=== PATIENT | male | born 1950 | race Caucasian/White ===

== ENCOUNTER → 2020-02-28 10:11 | Outpatient (BNVA) | payer MEDICARE, SELFPAY | PROVIDERS: PCP Internal Medicine; Referring Provider Internal Medicine; Visit Provider Orthopaedic Surgery | DX: Z98.890 Other specified postprocedural states (principal); S46.011D Strain of muscle(s) and tendon(s) of the rotator cuff of right shoulder, subsequent encounter; X58.XXXD Exposure to other specified factors, subsequent encounter; E11.9 Type 2 diabetes mellitus without complications; E78.00 Pure hypercholesterolemia, unspecified; I10 Essential (primary) hypertension | CPT/HCPCS: 99212 ==

== ENCOUNTER 2020-03-19 08:58 | Outpatient (REF) | payer MEDICARE, SELFPAY ==
[2020-03-19 09:33] LABS: MANUAL DIFF FLAG NO
[2020-03-19 09:34] LABS: Basophils Absolute Auto 0.1 X10*3/uL (0.0-0.2); Basophils Percent Auto 0.8 % (0-2); Eosinophils Absolute Auto 0.6 X10*3/uL (0.0-0.4); Hematocrit 41.6 % (42-52); Hemoglobin 13.8 g/dl (14.0-18.0); Imm Gran Abs Auto 0.01 X10*3/uL (0.00-0.03); Imm Gran Pct Auto 0.2 % (0.0-0.4); Lymphocytes Absolute Auto 1.8 X10*3/uL (1.2-4.9); Lymphocytes Percent Auto 30.6 % (20-40); Mean Corpuscular HGB Conc 33.2 g/dl (31.0-36.0); Mean Corpuscular Hemoglobin 28.9 pg (27.0-33.0); Mean Platelet Volume 9.4 fL (9.4-12.4); Monocytes Absolute Auto 0.6 X10*3/uL (0.1-1.2); Neutrophils Absolute Auto 2.9 X10*3/uL (2.0-8.3); Neutrophils Percent Auto 48.4 % (45-73); Platelet Count 236 X10*3/uL (160-400); Red Blood Count 4.78 X10*6/uL (4.60-5.80); Red Cell Distribution Width 12.9 % (11.0-16.0); White Blood Count 5.9 X10*3/uL (4.8-10.8)
[2020-03-19 09:39] LABS: Glucose Urine UA NEG (NEG); Leukocyte Esterase Urine NEG (NEG); Nitrite Urine NEG (NEG); Urine Blood NEG (NEG); Urine Ketones NEG (NEG); Urine Protein NEG (NEG-TRACE)
[2020-03-19 09:40] LABS: Appearance Urine CLEAR; Color Urine YELLOW
[2020-03-19 09:46] LABS: RBC Urine 0 /HPF (0); Squamous Epithelial Cell Urine TRACE /LPF; WBC Urine 0-2 /HPF (0-4)
[2020-03-19 09:59] LABS: Alanine Aminotransferase 32 U/L (0-40); Albumin Level 4.2 g/dL (3.5-5.0); Alkaline Phosphatase 62 U/L (39-117); Anion Gap 10 (12-20); Aspartate Amino Transferase 31 U/L (5-37); Bilirubin Total 0.5 mg/dL (0.0-1.0); Blood Urea Nitrogen 10 mg/dL (9-16); Calcium 9.4 mg/dL (8.4-10.2); Carbon Dioxide 29 mmol/L (22-29); Chloride 103 mmol/L (96-108); Cholesterol 129 mg/dL; Estimated Glomerular Filt Rate 57; Glucose Fasting 171 mg/dL (60-99); HDL Cholesterol 52 mg/dL; LDL Cholesterol Calculated 63 mg/dl; Potassium 3.9 mmol/l (3.3-5.1); Sodium 138 mmol/L (135-145); Total Protein 6.6 g/dL (6.5-8.0); Triglycerides 73 mg/dL
[2020-03-19 10:19] LABS: TSH reflex Free T4 1.28 mIU/mL (0.32-4.0)
[2020-03-19 11:08] LABS: Creatinine Urine 77.53 mg/dL; Microalbum/Creatinine Ratio Ur 140.5 ug/mg cr
== END 2020-03-19 08:59 | disposition home or self-care (01) ==
LOC: HO.LAB 08:58
PROVIDERS: PCP Internal Medicine; Visit Provider Internal Medicine
DX: E11.29 Type 2 diabetes mellitus with other diabetic kidney complication (principal); R80.9 Proteinuria, unspecified; E78.5 Hyperlipidemia, unspecified; I10 Essential (primary) hypertension; E66.9 Obesity, unspecified
CPT/HCPCS: 36415; 80053; 80061; 81001; 82043; 82306; 84443; 85025

== ENCOUNTER → 2020-04-24 09:58 | Outpatient (BNVA) | payer MEDICARE, SELFPAY | PROVIDERS: Visit Provider Orthopaedic Surgery | DX: G89.29 Other chronic pain (principal); Z98.890 Other specified postprocedural states | CPT/HCPCS: 99212 ==

== ENCOUNTER 2020-06-22 08:09 | Outpatient (REF) | payer MEDICARE, SELFPAY ==
[2020-06-22 08:49] LABS: MANUAL DIFF FLAG NO
[2020-06-22 09:00] LABS: Basophils Absolute Auto 0.1 X10*3/uL (0.0-0.2); Basophils Percent Auto 1.1 % (0-2); Eosinophils Absolute Auto 1.2 X10*3/uL (0.0-0.4); Eosinophils Percent Auto 16.3 % (0-4); Hematocrit 40.4 % (42-52); Hemoglobin 13.9 g/dl (14.0-18.0); Imm Gran Abs Auto 0.03 X10*3/uL (0.00-0.03); Imm Gran Pct Auto 0.4 % (0.0-0.4); Lymphocytes Absolute Auto 2.2 X10*3/uL (1.2-4.9); Lymphocytes Percent Auto 29.9 % (20-40); Mean Corpuscular HGB Conc 34.4 g/dl (31.0-36.0); Mean Corpuscular Hemoglobin 29.8 pg (27.0-33.0); Mean Corpuscular Volume 86.7 fL (80-98); Mean Platelet Volume 9.9 fL (9.4-12.4); Monocytes Absolute Auto 0.6 X10*3/uL (0.1-1.2); Monocytes Percent Auto 8.4 % (2-11); Neutrophils Absolute Auto 3.3 X10*3/uL (2.0-8.3); Neutrophils Percent Auto 43.9 % (45-73); Platelet Count 192 X10*3/uL (160-400); Red Blood Count 4.66 X10*6/uL (4.60-5.80); Red Cell Distribution Width 12.5 % (11.0-16.0); White Blood Count 7.5 X10*3/uL (4.8-10.8)
[2020-06-22 09:03] LABS: Glucose Urine UA NEG (NEG); Leukocyte Esterase Urine NEG (NEG); Nitrite Urine NEG (NEG); Urine Blood TRACE (NEG); Urine Ketones NEG (NEG); Urine Protein 1+ MG/DL (NEG-TRACE)
[2020-06-22 09:04] LABS: Appearance Urine CLEAR; Color Urine YELLOW
[2020-06-22 09:18] LABS: Mucus Urine 1+ /LPF; RBC Urine 0-2 /HPF (0); Squamous Epithelial Cell Urine 1+ /LPF
[2020-06-22 09:38] LABS: Alanine Aminotransferase 22 U/L (0-40); Albumin Level 4.3 g/dL (3.5-5.0); Alkaline Phosphatase 68 U/L (39-117); Anion Gap 14 (12-20); Aspartate Amino Transferase 20 U/L (5-37); Bilirubin Total 0.7 mg/dL (0.0-1.0); Blood Urea Nitrogen 18 mg/dL (9-16); Calcium 9.2 mg/dL (8.4-10.2); Carbon Dioxide 27 mmol/L (22-29); Chloride 103 mmol/L (96-108); Cholesterol 157 mg/dL; Estimated Glomerular Filt Rate 57; Glucose Fasting 173 mg/dL (60-99); HDL Cholesterol 58 mg/dL; LDL Cholesterol Calculated 80 mg/dl; Potassium 3.8 mmol/L (3.3-5.1); Sodium 140 mmol/L (135-145); Total Protein 6.9 g/dL (6.5-8.0); Triglycerides 95 mg/dL
[2020-06-22 09:46] LABS: Creatinine Urine 126.41 mg/dL; Microalbum/Creatinine Ratio Ur 231.7 ug/mg cr
[2020-06-22 10:02] LABS: TSH reflex Free T4 1.25 uIU/mL (0.32-4.0); Vitamin D 25-OH Total 32.7 ng/mL (>30)
[2020-06-23 07:54] LABS: Estimated Average Glucose 209 mg/dL; Hemoglobin A1c % 8.9 %
== END 2020-06-22 08:10 | disposition home or self-care (01) ==
LOC: HO.LAB 08:09
PROVIDERS: PCP Internal Medicine; Visit Provider Internal Medicine
DX: E11.29 Type 2 diabetes mellitus with other diabetic kidney complication (principal); G56.42 Causalgia of left upper limb; I10 Essential (primary) hypertension; E78.00 Pure hypercholesterolemia, unspecified; R80.9 Proteinuria, unspecified; E66.9 Obesity, unspecified; E55.9 Vitamin D deficiency, unspecified
CPT/HCPCS: 36415; 80053; 80061; 81001; 81003; 82043; 82306; 83036; 84443; 85025

== ENCOUNTER → 2020-07-23 12:46 | Outpatient (BNVA) | payer MEDICARE, SELFPAY | PROVIDERS: Visit Provider Orthopaedic Surgery | DX: Z98.890 Other specified postprocedural states (principal) | CPT/HCPCS: 99212 ==

== ENCOUNTER 2020-09-22 07:21 | Outpatient (REF) | payer MEDICARE, SELFPAY ==
[2020-09-22 08:25] LABS: Glucose Urine UA NEG (NEG); Leukocyte Esterase Urine NEG (NEG); Nitrite Urine NEG (NEG); Specific Gravity - Urine 1.015 (1.005-1.025); Urine Blood NEG (NEG); Urine Ketones NEG (NEG); Urine Protein TRACE MG/DL (NEG-TRACE)
[2020-09-22 08:28] LABS: Appearance Urine CLEAR; Color Urine YELLOW
[2020-09-22 09:48] LABS: Estimated Average Glucose 169 mg/dL; Hemoglobin A1c % 7.5 %
== END 2020-09-22 07:22 | disposition home or self-care (01) ==
LOC: HO.LAB 07:21
PROVIDERS: PCP Internal Medicine; Visit Provider Internal Medicine
DX: E11.29 Type 2 diabetes mellitus with other diabetic kidney complication (principal); I10 Essential (primary) hypertension; R80.9 Proteinuria, unspecified
CPT/HCPCS: 36415; 81003; 83036

== ENCOUNTER 2021-01-21 09:25 | Outpatient (REF) | payer MEDICARE, SELFPAY ==
[2021-01-21 10:29] LABS: MANUAL DIFF FLAG NO
[2021-01-21 10:39] LABS: Basophils Absolute Auto 0.1 X10*3/uL (0.0-0.2); Basophils Percent Auto 1.1 % (0-2); Eosinophils Absolute Auto 1.2 X10*3/uL (0.0-0.4); Eosinophils Percent Auto 15.6 % (0-4); Hematocrit 42.9 % (42-52); Hemoglobin 14.3 g/dl (14.0-18.0); Imm Gran Abs Auto 0.02 X10*3/uL (0.00-0.03); Imm Gran Pct Auto 0.3 % (0.0-0.4); Lymphocytes Absolute Auto 1.7 X10*3/uL (1.2-4.9); Lymphocytes Percent Auto 21.9 % (20-40); Mean Corpuscular HGB Conc 33.3 g/dl (31.0-36.0); Mean Corpuscular Hemoglobin 29.6 pg (27.0-33.0); Mean Corpuscular Volume 88.8 fL (80-98); Mean Platelet Volume 9.9 fL (9.4-12.4); Monocytes Absolute Auto 0.7 X10*3/uL (0.1-1.2); Neutrophils Absolute Auto 3.9 X10*3/uL (2.0-8.3); Neutrophils Percent Auto 52.1 % (45-73); Platelet Count 207 X10*3/uL (160-400); Red Blood Count 4.83 X10*6/uL (4.60-5.80); Red Cell Distribution Width 13.2 % (11.0-16.0); White Blood Count 7.5 X10*3/uL (4.8-10.8)
[2021-01-21 11:00] LABS: Alanine Aminotransferase 17 U/L (0-40); Albumin Level 4.4 g/dL (3.5-5.0); Alkaline Phosphatase 69 U/L (39-117); Anion Gap 9 (12-20); Aspartate Amino Transferase 21 U/L (5-37); Blood Urea Nitrogen 11 mg/dL (9-16); Calcium 9.4 mg/dL (8.4-10.2); Carbon Dioxide 27 mmol/L (22-29); Chloride 107 mmol/L (96-108); Cholesterol 137 mg/dL; Estimated Glomerular Filt Rate > 60; Glucose Fasting 103 mg/dL (60-99); HDL Cholesterol 68 mg/dL; LDL Cholesterol Calculated 58 mg/dl; Potassium 3.8 mmol/L (3.3-5.1); Sodium 139 mmol/L (135-145); Total Protein 7.1 g/dL (6.5-8.0); Triglycerides 55 mg/dL
[2021-01-21 11:04] LABS: Appearance Urine CLEAR; Color Urine YELLOW; Glucose Urine UA NEG (NEG); Leukocyte Esterase Urine NEG (NEG); Nitrite Urine NEG (NEG); Specific Gravity - Urine 1.025 (1.005-1.025); UACC Culture Trigger NO; Urine Blood NEG (NEG); Urine Ketones NEG (NEG); Urine Protein 2+ MG/DL (NEG-TRACE)
[2021-01-21 11:16] LABS: Estimated Average Glucose 157 mg/dL; Hemoglobin A1c % 7.1 %
[2021-01-21 11:19] LABS: TSH reflex Free T4 0.66 uIU/mL (0.32-4.0); Vitamin D 25-OH Total 24.7 ng/mL (>30); WBC Urine 0-2 /HPF (0-4)
[2021-01-21 11:20] LABS: Mucus Urine TRACE /LPF; RBC Urine 0 /HPF (0); Squamous Epithelial Cell Urine TRACE /LPF
[2021-01-21 11:38] LABS: Creatinine Urine 179.25 mg/dL
[2021-01-21 11:53] LABS: Microalbum/Creatinine Ratio Ur 342.5 ug/mg cr
[2021-01-21 12:17] LABS: Erythrocyte Sedimentation Rate 10 MM/HR (0-15)
== END 2021-01-21 09:26 | disposition home or self-care (01) ==
LOC: HO.LAB 09:25
PROVIDERS: PCP Internal Medicine; Visit Provider Internal Medicine
DX: G56.42 Causalgia of left upper limb (principal); E66.9 Obesity, unspecified; E78.00 Pure hypercholesterolemia, unspecified; E55.9 Vitamin D deficiency, unspecified; I10 Essential (primary) hypertension; E11.29 Type 2 diabetes mellitus with other diabetic kidney complication; R80.9 Proteinuria, unspecified
CPT/HCPCS: 36415; 80053; 80061; 81001; 81003; 82043; 82306; 83036; 84443; 85025; 85652

== ENCOUNTER 2021-05-05 07:28 | Outpatient (REF) | payer MEDICARE, SELFPAY ==
[2021-05-05 08:04] LABS: Appearance Urine CLEAR; Color Urine YELLOW; Glucose Urine UA NEG (NEG); Leukocyte Esterase Urine NEG (NEG); Nitrite Urine NEG (NEG); Urine Blood NEG (NEG); Urine Ketones NEG (NEG); Urine Protein TRACE MG/DL (NEG-TRACE)
[2021-05-05 08:47] LABS: Prostate Specific Antigen 0.64 ng/mL (<0.05-4.0)
== END 2021-05-05 07:29 | disposition home or self-care (01) ==
LOC: HO.LAB 07:28
PROVIDERS: Nurse Practitioner Family; PCP Internal Medicine; Visit Provider Internal Medicine
DX: I10 Essential (primary) hypertension (principal); R80.9 Proteinuria, unspecified; E11.29 Type 2 diabetes mellitus with other diabetic kidney complication; Z12.5 Encounter for screening for malignant neoplasm of prostate
CPT/HCPCS: 36415; 81003; 84153

== ENCOUNTER 2021-08-02 10:45 | Outpatient (REF) | payer OTHER, SELFPAY ==
[2021-08-02 10:58] LABS: MANUAL DIFF FLAG NO
[2021-08-02 11:20] LABS: Basophils Absolute Auto 0.1 X10*3/uL (0.0-0.2); Basophils Percent Auto 1.1 % (0-2); Eosinophils Absolute Auto 1.2 X10*3/uL (0.0-0.4); Eosinophils Percent Auto 17.8 % (0-4); Hematocrit 45.5 % (42.0-52.0); Hemoglobin 14.9 g/dl (14.0-18.0); Imm Gran Abs Auto 0.01 X10*3/uL (0.00-0.03); Imm Gran Pct Auto 0.2 % (0.0-0.4); Lymphocytes Absolute Auto 2.1 X10*3/uL (1.2-4.9); Lymphocytes Percent Auto 31.5 % (20-40); Mean Corpuscular HGB Conc 32.7 g/dl (31.0-36.0); Mean Corpuscular Hemoglobin 29.2 pg (27.0-33.0); Mean Platelet Volume 9.4 fL (9.4-12.4); Monocytes Absolute Auto 0.7 X10*3/uL (0.1-1.2); Monocytes Percent Auto 10.3 % (2-11); Neutrophils Absolute Auto 2.5 x10*3/uL (2.0-8.3); Neutrophils Percent Auto 39.1 % (45-73); Platelet Count 193 X10*3/uL (160-400); Red Blood Count 5.11 X10*6/uL (4.60-5.80); Red Cell Distribution Width 12.2 % (11.0-16.0); White Blood Count 6.5 X10*3/uL (4.8-10.8)
[2021-08-02 11:56] LABS: Alanine Aminotransferase 26 U/L (0-40); Albumin Level 4.4 g/dL (3.5-5.0); Alkaline Phosphatase 75 U/L (39-117); Anion Gap 12 (12-20); Aspartate Amino Transferase 23 U/L (5-37); Bilirubin Total 0.6 mg/dL (0.0-1.0); Blood Urea Nitrogen 10 mg/dL (9-16); Calcium 10.3 mg/dL (8.4-10.2); Carbon Dioxide 31 mmol/L (22-29); Chloride 101 mmol/L (96-108); Estimated Glomerular Filt Rate 51; Glucose Random 310 mg/dL (60-115); Potassium 5.4 mmol/L (3.3-5.1); Sodium 139 mmol/L (135-145); Total Protein 7.3 g/dL (6.5-8.0)
[2021-08-02 12:22] LABS: TSH reflex Free T4 1.12 uIU/mL (0.32-4.0)
== END 2021-08-02 10:46 | disposition home or self-care (01) ==
LOC: HO.LAB 10:45
PROVIDERS: PCP Internal Medicine; Visit Provider Nurse Practitioner Acute Care
DX: R42 Dizziness and giddiness (principal)
CPT/HCPCS: 36415; 80053; 84443; 85025

== ENCOUNTER 2022-01-12 11:06 | Outpatient (REF) | payer OTHER, SELFPAY ==
[2022-01-12 11:39] LABS: MANUAL DIFF FLAG NO
[2022-01-12 12:00] LABS: Basophils Absolute Auto 0.1 X10*3/uL (0.0-0.2); Basophils Percent Auto 1.1 % (0-2); Eosinophils Absolute Auto 1.1 X10*3/uL (0.0-0.4); Hematocrit 43.9 % (42.0-52.0); Hemoglobin 14.8 g/dl (14.0-18.0); Imm Gran Abs Auto 0.01 X10*3/uL (0.00-0.03); Imm Gran Pct Auto 0.2 % (0.0-0.4); Lymphocytes Absolute Auto 2.1 X10*3/uL (1.2-4.9); Lymphocytes Percent Auto 33.9 % (20-40); Mean Corpuscular HGB Conc 33.7 g/dl (31.0-36.0); Mean Corpuscular Hemoglobin 29.6 pg (27.0-33.0); Mean Corpuscular Volume 87.8 fL (80.0-98.0); Mean Platelet Volume 9.3 fL (9.4-12.4); Monocytes Absolute Auto 0.6 X10*3/uL (0.1-1.2); Monocytes Percent Auto 9.6 % (2-11); Neutrophils Absolute Auto 2.4 x10*3/uL (2.0-8.3); Neutrophils Percent Auto 38.2 % (45-73); Platelet Count 185 X10*3/uL (160-400); White Blood Count 6.2 X10*3/uL (4.8-10.8)
[2022-01-12 12:09] LABS: Estimated Average Glucose 192 mg/dL; Hemoglobin A1c % 8.3 %
[2022-01-12 12:14] LABS: Appearance Urine Clear; Color Urine Yellow; Glucose Urine UA 100 mg/dL (Negative); Leukocyte Esterase Urine Negative (Negative); Nitrite Urine Negative (Negative); Urine Blood Negative (Negative); Urine Ketones Trace mg/dL (Negative); Urine Protein 100 (2+) mg/dL (Neg-Trace)
[2022-01-12 12:17] LABS: Bacteria Urine None Seen (None Seen); Hyaline Casts Urine 0-2 /LPF (0-2); RBC Urine 0-2 /HPF (0-2); Squamous Epithelial Cell Urine 0-2 /HPF (0-2); WBC Urine 0-5 /HPF (0-5)
[2022-01-12 12:35] LABS: Alanine Aminotransferase 22 U/L (0-40); Albumin Level 4.4 g/dL (3.5-5.0); Alkaline Phosphatase 68 U/L (39-117); Anion Gap 15 (12-20); Aspartate Amino Transferase 24 U/L (5-37); Bilirubin Total 0.7 mg/dL (0.0-1.0); Blood Urea Nitrogen 11 mg/dL (9-16); Calcium 9.4 mg/dL (8.4-10.2); Carbon Dioxide 25 mmol/L (22-29); Chloride 104 mmol/L (96-108); Cholesterol 156 mg/dL; Estimated Glomerular Filt Rate > 60; Glucose Fasting 206 mg/dL (60-99); HDL Cholesterol 55 mg/dL; LDL Cholesterol Calculated 77 mg/dl; Potassium 4.5 mmol/L (3.3-5.1); Sodium 139 mmol/L (135-145); Total Protein 7.3 g/dL (6.5-8.0); Triglycerides 121 mg/dL
[2022-01-12 12:57] LABS: TSH reflex Free T4 1.15 uIU/mL (0.32-4.0); Vitamin D 25-OH Total 25.6 ng/mL (>30)
[2022-01-12 13:15] LABS: Creatinine Urine 172.75 mg/dL
== END 2022-01-12 11:07 | disposition home or self-care (01) ==
LOC: HO.LAB 11:06
PROVIDERS: PCP Internal Medicine; Visit Provider Internal Medicine
DX: E11.9 Type 2 diabetes mellitus without complications (principal); E78.00 Pure hypercholesterolemia, unspecified; I10 Essential (primary) hypertension; E55.9 Vitamin D deficiency, unspecified
CPT/HCPCS: 36415; 80053; 80061; 81001; 82043; 82306; 83036; 84443; 85025

== ENCOUNTER 2022-04-27 07:56 | Outpatient (REF) | payer OTHER, SELFPAY ==
[2022-04-27 08:13] LABS: MANUAL DIFF FLAG NO
[2022-04-27 08:29] LABS: Basophils Absolute Auto 0.1 X10*3/uL (0.0-0.2); Basophils Percent Auto 1.2 % (0-2); Eosinophils Absolute Auto 0.9 X10*3/uL (0.0-0.4); Eosinophils Percent Auto 12.6 % (0-4); Hematocrit 47.2 % (42.0-52.0); Hemoglobin 15.8 g/dl (14.0-18.0); Imm Gran Abs Auto 0.02 X10*3/uL (0.00-0.03); Imm Gran Pct Auto 0.3 % (0.0-0.4); Lymphocytes Absolute Auto 1.9 X10*3/uL (1.2-4.9); Lymphocytes Percent Auto 28.4 % (20-40); Mean Corpuscular HGB Conc 33.5 g/dl (31.0-36.0); Mean Corpuscular Hemoglobin 28.8 pg (27.0-33.0); Mean Corpuscular Volume 86.1 fL (80.0-98.0); Mean Platelet Volume 9.9 fL (9.4-12.4); Monocytes Absolute Auto 0.6 X10*3/uL (0.1-1.2); Monocytes Percent Auto 8.4 % (2-11); Neutrophils Absolute Auto 3.4 x10*3/uL (2.0-8.3); Neutrophils Percent Auto 49.1 % (45-73); Platelet Count 217 X10*3/uL (160-400); Red Blood Count 5.48 X10*6/uL (4.60-5.80); Red Cell Distribution Width 12.1 % (11.0-16.0); White Blood Count 6.8 X10*3/uL (4.8-10.8)
[2022-04-27 08:33] LABS: Estimated Average Glucose 252 mg/dL; Hemoglobin A1c % 10.4 %
[2022-04-27 09:01] LABS: Appearance Urine Clear; Color Urine Yellow; Glucose Urine UA 500 mg/dL (Negative); Leukocyte Esterase Urine Negative (Negative); Nitrite Urine Negative (Negative); Specific Gravity - Urine 1.025 (1.005-1.025); UMIC TRIGGER UACC YES; Urine Blood Negative (Negative); Urine Ketones Trace mg/dL (Negative); Urine Protein 300 (3+) mg/dL (Neg-Trace)
[2022-04-27 09:03] LABS: Bacteria Urine None Seen (None Seen); RBC Urine 0-2 /HPF (0-2); Squamous Epithelial Cell Urine 0-2 /HPF (0-2); WBC Urine 0-5 /HPF (0-5)
[2022-04-27 09:30] LABS: Alanine Aminotransferase 22 U/L (0-40); Albumin Level 4.4 g/dL (3.5-5.0); Alkaline Phosphatase 85 U/L (39-117); Anion Gap 12 (12-20); Aspartate Amino Transferase 21 U/L (5-37); Bilirubin Total 0.8 mg/dL (0.0-1.0); Blood Urea Nitrogen 13 mg/dL (9-16); Calcium 9.7 mg/dL (8.4-10.2); Carbon Dioxide 25 mmol/L (22-29); Chloride 103 mmol/L (96-108); Cholesterol 179 mg/dL; Estimated Glomerular Filt Rate 59; Glucose Fasting 287 mg/dL (60-99); HDL Cholesterol 65 mg/dL; LDL Cholesterol Calculated 95 mg/dl; Potassium 4.1 mmol/L (3.3-5.1); Sodium 136 mmol/L (135-145); TSH reflex Free T4 1.43 uIU/mL (0.32-4.0); Triglycerides 98 mg/dL; Vitamin D 25-OH Total 25.6 ng/mL (>30)
[2022-04-27 09:49] LABS: Creatinine Urine 251.28 mg/dL
[2022-04-27 10:01] LABS: Microalbum/Creatinine Ratio Ur 791.1 ug/mg cr
== END 2022-04-27 07:57 | disposition home or self-care (01) ==
LOC: HO.LAB 07:56
PROVIDERS: PCP Internal Medicine; Visit Provider Internal Medicine
DX: E78.00 Pure hypercholesterolemia, unspecified (principal); E11.9 Type 2 diabetes mellitus without complications; E55.9 Vitamin D deficiency, unspecified; I10 Essential (primary) hypertension
CPT/HCPCS: 36415; 80053; 80061; 81001; 81003; 82043; 82306; 83036; 84443; 85025

== ENCOUNTER 2022-08-13 09:53 | Emergency (ER) | payer OTHER, SELFPAY ==
--- NOTE | ~2022-08-13 | CT_ITS ---
EXAMINATION: CT ABDOMEN AND PELVIS WITHOUT CONTRAST CLINICAL INFORMATION: 72-year-old male with history of right back pain and melena. COMPARISON: 12/03/2009 TECHNIQUE: Multidetector volumetric imaging was performed from the superior aspect of the liver through the pubic symphysis. Sagittal and coronal reformatted images were obtained on the technologist's workstation. This CT examination was performed using dose optimization techniques as appropriate, variously including the following: *Automated exposure control *Adjustment of mA and/or kV according to patient size (this includes techniques or standardized protocols for targeted exams where dose is matched to indication/reason for exam; i.e. extremities or head) *Use of iterative reconstruction technique DLP: 542 mGy-cm FINDINGS: LOCALIZER IMAGES: Large body habitus. Normal bowel gas pattern. LUNG BASES: No acute abnormality. No pulmonary consolidation or pleural effusion. 0.5 cm pleural-based nodule of the lateral left lower lobe is stable compared to 12/03/2009 -- a benign finding. No follow-up recommended. There is atherosclerotic calcification of coronary arteries. LIVER: The liver has normal size, shape, and attenuation. No evidence of liver mass. GALLBLADDER AND BILIARY TREE: Gallbladder is without radiopaque stones. Although there is mild haziness of pericholecystic fat, this is similar in appearance compared to 12/03/2009. No dilated bile ducts. PANCREAS: No acute findings within the atrophied pancreas. Small scattered calcific lesions of the pancreas could be a manifestation of chronic pancreatitis. No edema, pancreatic ductal dilatation or mass. SPLEEN: Normal. ADRENAL GLANDS: Normal. KIDNEYS AND URETERS: Kidneys are normal in size. Nonspecific bilateral perinephric edema. 1.6 cm simple cyst of the right kidney. No renal imaging follow-up recommended. There are three calyceal stones of the right kidney, largest 0.5 cm. No left renal stones. The ureters are unremarkable. No hydroureteronephrosis. BLADDER: No bladder wall thickening or bladder stone. The right bladder wall is compressed by the reservoir for the penile prosthesis. BOWEL AND PERITONEUM: No dilated bowel loops. Multiple diverticula of the right and left colon. The appendix is normal. There is subtle haziness adjacent to a diverticulum of the medial wall of the descending colon (coronal reformatted images 49-53 of 100). However, there is no overt wall thickening of the bowel and the finding is too subtle for any confident diagnosis of diverticulitis. Note that patient had diverticulitis of the descending colon on 12/03/2009. No abdominal free fluid or free air. There is chronic minimal haziness of central mesenteric fat, similar compared to 12/03/2009, suggestive of minimal mesenteric panniculitis. ABDOMINAL WALL: Small fat-containing umbilical hernia is present. Also, there is chronic mild herniation of fat into each proximal inguinal canal. These findings are unchanged compared to 12/03/2009. VASCULATURE: Atherosclerosis of the abdominal aorta (and branch vessels) without aortic aneurysm. LYMPH NODES: No pathologic sized lymph nodes in the abdomen or pelvis. No inguinal lymphadenopathy. PELVIC VISCERA: Prostate gland is unremarkable. MUSCULOSKELETAL: L4-L5 degenerative disc disease (loss of disc height, vacuum disc phenomenon, endplate sclerosis and osteophytosis). Disc bulge and posterior vertebral osteophytes cause mild central canal stenosis and at least moderate bilateral neural foraminal stenosis at L4-L5. The bulging disc at L5-S1 appears to cause mild spinal canal stenosis. No suspicious bone lesions. Pelvic bones and proximal femurs are intact. CT/CT abdomen pelvis wo IV con IMPRESSION: * There are a few small stones of the right kidney without ureteral stones. No hydroureteronephrosis. No acute abnormalities along the urinary tracts. * Although there is hazy appearance of some of the pericholecystic fat, this is similar compared to 12/03/2009 and therefore of doubtful significance. If the patient develops any right upper quadrant pain, then follow-up right upper quadrant ultrasound may be performed. * Diverticulosis of the colon. The finding of subtle haziness adjacent to a diverticulum of the medial wall of the descending colon requires clinical correlation. If the patient has any left-sided pain, then minimal diverticulitis would be suspected. The patient had diverticulitis of the descending colon on the remote prior abdomen CT from 12/03/2009. * Findings in the lumbar spine include degenerative disc disease, mild canal stenosis and at least moderate bilateral neural foraminal stenosis at L4-L5. No acute fracture or subluxation within the degenerated spine.
[2022-08-13 10:01] VITALS: BP 151/68; PULSE 70; RESP 16; TEMP 36; O2SAT 96; BMI 31.1
--- NOTE | 2022-08-13 10:20 | ECG_ITS ---
Test Reason : BACK PAIN Blood Pressure : / mmHG Vent. Rate : 062 BPM Atrial Rate : 062 BPM P-R Int : 188 ms QRS Dur : 090 ms QT Int : 384 ms P-R-T Axes : 029 009 025 degrees QTc Int : 389 ms Normal sinus rhythm Inferior infarct , age undetermined Possible Anterior infarct , age undetermined Abnormal ECG When compared with ECG of 01-JAN-2020 13:58, No significant change was found Referred By: Regis Le Electronically Signed By:Jose L Chandler
--- NOTE | 2022-08-13 10:35 | ED_ITS ---
HPI - Back Pain/Injury General Chief Complaint: Back Pain/Injury Stated Complaint: lower back pain Time Seen by Provider: 08/13/22 10:09 Source: patient Mode of arrival: ambulatory Limitations: no limitations History of Present Illness HPI Narrative: 72-year-old male came in for evaluation of low back pain. Patient is complaining of low back pain on the right side, pain has been constant for 1 day, described as dull aching pain with no radiation localized to the right side of the low back, patient had a history of kidney stone which is similar to this pain, declined any dysuria or frequency urination or hematuria. Patient also reporting 2 days of black stool, no dizziness, no SOB, no CP, no abdominal pain, no nausea, no vomiting. Related Data Home Medications Medication Instructions Recorded Confirmed glipizide 5 mg tablet 10 mg PO BID 03/20/20 08/13/22 hydrochlorothiazide 25 mg tablet 25 mg PO DAILY 03/20/20 08/13/22 gabapentin 300 mg capsule 300 mg PO BID 05/07/21 08/13/22 omeprazole 20 mg capsule,delayed 20 mg PO DAILY@0630 PRN Acid Reflux 08/13/22 08/13/22 release Previous Rx's Medication Instructions Recorded diabetic supplies, miscellan. #1 ea 03/09/20 tizanidine 4 mg tablet 4 mg PO TID PRN for muscle spasm 09/07/21 #90 tabs pioglitazone 30 mg tablet 30 mg PO DAILY 90 days #90 tabs 11/15/21 atorvastatin 80 mg tablet 80 mg PO DAILY #90 tabs 11/18/21 hydralazine 25 mg tablet 25 mg PO BID #180 tabs 11/18/21 metformin 1,000 mg tablet 1,000 mg PO BID #180 tabs 11/18/21 cholecalciferol (vitamin D3) 50 50 mcg PO DAILY 90 days #90 tabs 01/26/22 mcg (2,000 unit) tablet ibuprofen 800 mg tablet 800 mg PO TID PRN pain 10 days #30 01/26/22 tabs atenolol 50 mg tablet 50 mg PO DAILY 90 days #90 tabs 04/18/22 amlodipine 10 mg tablet 10 mg PO DAILY 90 days #90 tabs 04/25/22 losartan 100 mg tablet 100 mg PO DAILY #90 tabs 05/03/22 trazodone 50 mg tablet 25 mg PO BEDTIME PRN for insomnia 07/07/22 #45 tabs Allergies Allergy/AdvReac Type Severity Reaction Status Date / Time No Known Allergies Allergy Verified 08/03/22 14:17 Review of Systems Review of Systems: All other systems are reviewed and are negative Constitutional: Reports as per HPI and Reports no additional constitutional complaints Eyes: Reports as per HPI and Reports no additional eye complaints Reports system reviewed and no additional complaints, except as documented Cardiovascular: Reports as per HPI and Reports no additional cardiovascular complaints Respiratory: Reports as per HPI and Reports no additional respiratory complaints Gastrointestinal: Reports as per HPI and Reports no additional gastrointestinal complaints Genitourinary: Reports no additional female genitourinary complaints Musculoskeletal: Reports no additional musculoskeletal complaints Skin/Breast: Reports system reviewed and no additional complaints, except as docu Psychiatric: Reports no additional psychiatric complaints Endocrine: Reports no additional endocrine complaints Hematologic/Lymphatic: Reports no additional hematologic/lymphatic complaints Allergic/Immunologic: Reports no additional allergic/immunologic complaints Reports system reviewed and no additional complaints, except as documented and Reports Abnormal speech present [facility] Past Medical History Medical History Benign essential hypertension Complex regional pain syndrome type 2 of left upper extremity Dermatitis Diabetes type 2, controlled Hypercholesteremia Hypertension Insomnia Lumbar degenerative disc disease Obesity (BMI 30-39.9) Primary osteoarthritis of right shoulder Proteinuria, unspecified Pure hypercholesterolemia Type 2 diabetes mellitus with other diabetic kidney complication Vitamin D deficiency Surgical History History of colonoscopy Status post right rotator cuff repair Family History Family History Mother CVD (cardiovascular disease) Father No problems noted. Social History Social History Housing: Apartment Alcohol intake: current Alcohol intake frequency: holidays/special occasions only Patient Tobacco Use Status: Former Tobacco user Smoked in Last 30 Days: No e-Cigarette/Vaping Use: Never Used Second Hand Smoke Exposure: Yes Use of substances other than those prescribed or required for medical reasons: No Advance Directives: No service: No Current occupational status: retired Cognitive needs: No Hearing needs: No (Pt has an old pair of hearing aid. ) Vision needs: Yes Physical Exam Vital Signs: Vital Signs: Last Vital Signs Temp 96.8 F 08/13/22 10:01 Pulse 69 08/13/22 11:19 Resp 16 08/13/22 10:01 BP 152/73 H 08/13/22 11:19 Pulse Ox 96 08/13/22 10:01 O2 Del Method Room Air 08/13/22 10:01 BMI result Body Mass Index 31.1 Vital signs have been reviewed as appeared to be correct. Blood pressure normal. Heart rate normal. Respiration rate normal. Temperature normal. Oxygen saturation normal. Appearance: Alert. Oriented X3. No acute distress. Head: Normal external exam. Normocephalic. Atraumatic. No Cobos signs noted. No raccoon eyes noted Eyes: PERRLA. EOMI. Conjunctiva and sclera normal. Eyelids normal. ENT: TM's Normal. Pharynx normal. Uvula midline. Moist mucous membranes. No trismus noted. No drooling noted. No muffled voice noted. Neck: Normal inspection. Neck supple. FROM. No adenopathy. Thyroid Normal. No meningeal signs. No neck mass noted. CVS: Normal heart rate and rhythm. Heart sound normal. No murmurs noted. Pulses normal throughout. Respiratory: No respiratory distress. Painless inspiration. Breath sounds normal. No wheezes/rales/rhonchi noted. Chest nontender. No accessory muscle usage noted or decreased air movement noted. Abdomen: Soft and nontender. Bowel sounds normal in all 4 quadrants. No distention noted. No organomegaly noted. No visible injury noted. Rectal exam: Brown stool guaiac negative. Back: No CVA tenderness. Full range of motion noted. Skin: Skin warm and dry. Normal skin color. Normal skin turgor. No rashes/lesions/lacerations noted. Extremities: No lower extremity edema. Extremities exhibit normal range of motion. Extremities nontender. Neuro: Oriented X 3. Cranial nerve exam: II-XII are grossly intact No motor deficit. No sensory deficit. Reflexes normal. Course Course Course Narrative: 72-year-old male came in for evaluation of low back pain, CT and UA are unremarkable for ureteric stone, CT is unchanged from previous CT questioning gallbladder problems patient has no right upper quadrant pain, no nausea, no vomiting, with normal WBCs and LFTs. Patient also was instructed to follow-up with his PCP for his hyperglycemia management patient is known to have high hemoglobin A1c, patient will likely need to add another diabetic medication to his metformin. Medications Administered Discontinued Medications Generic Name Dose Route Start Last Admin Trade Name Frerick PRN Reason Stop Dose Admin Insulin Glargine 5 unit 08/13/22 12:26 08/13/22 13:10 Insulin Glargine,Hum.Rec.Anlog 100 Unit/Ml 10 Ml Vial SUBCUT 08/13/22 12:27 5 unit ONCE ONE Administration Metformin HCl 500 mg 08/13/22 11:44 08/13/22 13:10 Metformin Hcl Er 500 Mg Tab.Er.24h PO 08/13/22 11:45 500 mg ONCE ONE Administration Medical Decision Making Differential Diagnosis Differential Diagnoses: The differential diagnosis associated with the presentation includes (AAA, kidney stone, chronic back pain, pyelonephritis, UTI, myofascial pain, hyperglycemia, DKA, electrolyte disturbance, GI bleed, anemia.) Admission/Observation Consideration of admission/observation: Escalation of care including admission/observation considered Lab Data MDM Lab Attestation statement: I reviewed the patient's lab results. 08/13/22 10:45 08/13/22 10:45 Labs: Lab Results 08/13/22 08/13/22 08/13/22 Range/Units 10:21 10:24 10:45 WBC 7.7 (4.8-10.8) X10*3/uL RBC 5.33 (4.60-5.80) X10*6/uL Hgb 15.6 (14.0-18.0) g/dl Hct 45.6 (42.0-52.0) % MCV 85.6 (80.0-98.0) fL MCH 29.3 (27.0-33.0) pg MCHC 34.2 (31.0-36.0) g/dl RDW 12.1 (11.0-16.0) % Plt Count 184 (160-400) X10*3/uL MPV 9.9 (9.4-12.4) fL Immature Gran % (Auto) 0.3 (0.0-0.4) % Neut % (Auto) 52.9 (45-73) % Lymph % (Auto) 26.0 (20-40) % [place] % (Auto) 8.3 (2-11) % Eos % (Auto) 11.7 H (0-4) % Baso % (Auto) 0.8 (0-2) % Lymph # (Auto) 2.0 (1.2-4.9) X10*3/uL [place] # (Auto) 0.6 (0.1-1.2) X10*3/uL Eos # (Auto) 0.9 H (0.0-0.4) X10*3/uL Baso # (Auto) 0.1 (0.0-0.2) X10*3/uL Abs Immat Gran (auto) 0.02 (0.00-0.03) X10*3/uL Absolute Neuts (auto) 4.1 (2.0-8.3) x10*3/uL Absolute Nucleated RBC 0.000 (0.0-0.012) X10*3/uL Nucleated RBC % (auto) 0.0 (0.0-0.2) /100WBC PT (10.0-13.1) SEC INR (0.9-1.1) APTT (26.0-36.4) SEC Sodium (135-145) mmol/L Potassium (3.3-5.1) mmol/L Chloride (96-108) mmol/L Carbon Dioxide (22-29) mmol/L Anion Gap (12-20) BUN (9-16) mg/dL Creatinine (0.5-1.4) mg/dL Estim Creat Clear Calc Estimated GFR POC Glucose (60-115) mg/dL Random Glucose (60-115) mg/dL Calcium (8.4-10.2) mg/dL Total Bilirubin (0.0-1.0) mg/dL Direct Bilirubin (0.0-0.5) mg/dL AST (5-37) U/L ALT (0-40) U/L Alkaline Phosphatase (39-117) U/L Troponin I High Sens (<3.5-35.0) ng/L Total Protein (6.5-8.0) g/dL Albumin (3.5-5.0) g/dL Lipase (8-78) U/L Urine Color Yellow Urine Appearance Clear Urine pH 5.5 (5.0-9.0) Ur Specific Isabel 1.020 (1.005-1.025) Urine Protein 100 (2+) H (Neg-Trace) mg/dL Urine Glucose (UA) >=1000 H (Negative) mg/dL Urine Ketones Negative (Negative) mg/dL Urine Blood Negative (Negative) Urine Nitrite Negative (Negative) Ur Leukocyte Esterase Negative (Negative) Urine RBC 0-2 (0-2) /HPF Urine WBC 0-5 (0-5) /HPF Ur Squamous Epith Cells 0-2 (0-2) /HPF Urine Bacteria None Seen (None Seen) Hyaline Casts 0-2 (0-2) /LPF Stool Occult Blood NEGATIVE (NEGATIVE) 08/13/22 08/13/22 08/13/22 Range/Units 10:45 10:45 10:45 WBC (4.8-10.8) X10*3/uL RBC (4.60-5.80) X10*6/uL Hgb (14.0-18.0) g/dl Hct (42.0-52.0) % MCV (80.0-98.0) fL MCH (27.0-33.0) pg MCHC (31.0-36.0) g/dl RDW (11.0-16.0) % Plt Count (160-400) X10*3/uL MPV (9.4-12.4) fL Immature Gran % (Auto) (0.0-0.4) % Neut % (Auto) (45-73) % Lymph % (Auto) (20-40) % [place] % (Auto) (2-11) % Eos % (Auto) (0-4) % Baso % (Auto) (0-2) % Lymph # (Auto) (1.2-4.9) X10*3/uL [place] # (Auto) (0.1-1.2) X10*3/uL Eos # (Auto) (0.0-0.4) X10*3/uL Baso # (Auto) (0.0-0.2) X10*3/uL Abs Immat Gran (auto) (0.00-0.03) X10*3/uL Absolute Neuts (auto) (2.0-8.3) x10*3/uL Absolute Nucleated RBC (0.0-0.012) X10*3/uL Nucleated RBC % (auto) (0.0-0.2) /100WBC PT 11.0 (10.0-13.1) SEC INR 1.0 (0.9-1.1) APTT 32.7 (26.0-36.4) SEC Sodium 135 (135-145) mmol/L Potassium 3.7 (3.3-5.1) mmol/L Chloride 104 (96-108) mmol/L Carbon Dioxide 23 (22-29) mmol/L Anion Gap 12 (12-20) BUN 10 (9-16) mg/dL Creatinine 1.08 (0.5-1.4) mg/dL Estim Creat Clear Calc 60.1 Estimated GFR > 60 POC Glucose (60-115) mg/dL Random Glucose 358 H* (60-115) mg/dL Calcium 9.4 (8.4-10.2) mg/dL Total Bilirubin 0.8 (0.0-1.0) mg/dL Direct Bilirubin 0.3 (0.0-0.5) mg/dL AST 16 (5-37) U/L ALT 17 (0-40) U/L Alkaline Phosphatase 85 (39-117) U/L Troponin I High Sens 8.5 (<3.5-35.0) ng/L Total Protein 6.5 (6.5-8.0) g/dL Albumin 4.0 (3.5-5.0) g/dL Lipase 46 (8-78) U/L Urine Color Urine Appearance Urine pH (5.0-9.0) Ur Specific Isabel (1.005-1.025) Urine Protein (Neg-Trace) mg/dL Urine Glucose (UA) (Negative) mg/dL Urine Ketones (Negative) mg/dL Urine Blood (Negative) Urine Nitrite (Negative) Ur Leukocyte Esterase (Negative) Urine RBC (0-2) /HPF Urine WBC (0-5) /HPF Ur Squamous Epith Cells (0-2) /HPF Urine Bacteria (None Seen) Hyaline Casts (0-2) /LPF Stool Occult Blood (NEGATIVE) 08/13/22 Range/Units 14:49 WBC (4.8-10.8) X10*3/uL RBC (4.60-5.80) X10*6/uL Hgb (14.0-18.0) g/dl Hct (42.0-52.0) % MCV (80.0-98.0) fL MCH (27.0-33.0) pg MCHC (31.0-36.0) g/dl RDW (11.0-16.0) % Plt Count (160-400) X10*3/uL MPV (9.4-12.4) fL Immature Gran % (Auto) (0.0-0.4) % Neut % (Auto) (45-73) % Lymph % (Auto) (20-40) % [place] % (Auto) (2-11) % Eos % (Auto) (0-4) % Baso % (Auto) (0-2) % Lymph # (Auto) (1.2-4.9) X10*3/uL [place] # (Auto) (0.1-1.2) X10*3/uL Eos # (Auto) (0.0-0.4) X10*3/uL Baso # (Auto) (0.0-0.2) X10*3/uL Abs Immat Gran (auto) (0.00-0.03) X10*3/uL Absolute Neuts (auto) (2.0-8.3) x10*3/uL Absolute Nucleated RBC (0.0-0.012) X10*3/uL Nucleated RBC % (auto) (0.0-0.2) /100WBC PT (10.0-13.1) SEC INR (0.9-1.1) APTT (26.0-36.4) SEC Sodium (135-145) mmol/L Potassium (3.3-5.1) mmol/L Chloride (96-108) mmol/L Carbon Dioxide (22-29) mmol/L Anion Gap (12-20) BUN (9-16) mg/dL Creatinine (0.5-1.4) mg/dL Estim Creat Clear Calc Estimated GFR POC Glucose 229 H (60-115) mg/dL Random Glucose (60-115) mg/dL Calcium (8.4-10.2) mg/dL Total Bilirubin (0.0-1.0) mg/dL Direct Bilirubin (0.0-0.5) mg/dL AST (5-37) U/L ALT (0-40) U/L Alkaline Phosphatase (39-117) U/L Troponin I High Sens (<3.5-35.0) ng/L Total Protein (6.5-8.0) g/dL Albumin (3.5-5.0) g/dL Lipase (8-78) U/L Urine Color Urine Appearance Urine pH (5.0-9.0) Ur Specific Isabel (1.005-1.025) Urine Protein (Neg-Trace) mg/dL Urine Glucose (UA) (Negative) mg/dL Urine Ketones (Negative) mg/dL Urine Blood (Negative) Urine Nitrite (Negative) Ur Leukocyte Esterase (Negative) Urine RBC (0-2) /HPF Urine WBC (0-5) /HPF Ur Squamous Epith Cells (0-2) /HPF Urine Bacteria (None Seen) Hyaline Casts (0-2) /LPF Stool Occult Blood (NEGATIVE) Independent Interpretation I performed an independent interpretation of an: CT Scan (Abdomen and pelvis:* There are a few small stones of the right kidney without ureteral stones. No hydroureteronephrosis. No acute abnormalities along the urinary tracts. * Although there is hazy appearance of some of the pericholecystic fat, this is similar compared to 12/03/2009 and therefore of ) Radiology Impression Discussion of test interpretation with radiology: I have reviewed the radiologist's reading. Chronic Conditions Patient?s care impacted by: Diabetes Discharge Plan Discharge Clinical Impression: Back pain, Hyperglycemia due to type 2 diabetes mellitus Patient Disposition: Home, Self-Care Instructions: Back Pain (ED), Type 2 Diabetes Management for Adults (ED) Prescriptions: No Action (DME) diabetic supplies, miscellan. Misc See Rx Instructions .ROUTE .MEDSUPPLY Qty: 1 0RF Rx Instructions: Diabetic shoes (1 pair) tizanidine 4 mg tablet 4 mg PO TID PRN (Reason: for muscle spasm) Qty: 90 0RF pioglitazone 30 mg tablet 30 mg PO DAILY 90 Days Qty: 90 1RF metformin 1,000 mg tablet 1,000 mg PO BID Qty: 180 1RF atorvastatin 80 mg tablet 80 mg PO DAILY Qty: 90 1RF hydralazine 25 mg tablet 25 mg PO BID Qty: 180 2RF atenolol 50 mg tablet 50 mg PO DAILY 90 Days Qty: 90 1RF amlodipine 10 mg tablet 10 mg PO DAILY 90 Days Qty: 90 1RF losartan 100 mg tablet 100 mg PO DAILY Qty: 90 1RF trazodone 50 mg tablet 25 mg PO BEDTIME PRN (Reason: for insomnia) Qty: 45 1RF omeprazole 20 mg capsule,delayed release(DR/EC) 20 mg PO DAILY@0630 PRN (Reason: Acid Reflux) glipizide 5 mg tablet 10 mg PO BID hydrochlorothiazide 25 mg tablet 25 mg PO DAILY gabapentin 300 mg capsule 300 mg PO BID ibuprofen 800 mg tablet 800 mg PO TID PRN (Reason: pain) 10 Days Qty: 30 1RF cholecalciferol (vitamin D3) 50 mcg (2,000 unit) tablet 50 mcg PO DAILY 90 Days Qty: 90 3RF Referrals: Raymond Machuca MD [Primary Care Provider] -
[2022-08-13 10:45] LABS: Appearance Urine Clear; Color Urine Yellow; Glucose Urine UA >=1000 mg/dL (Negative); Leukocyte Esterase Urine Negative (Negative); Nitrite Urine Negative (Negative); PH 5.5 (5.0-9.0); UMIC TRIGGER UACC YES; Urine Blood Negative (Negative); Urine Ketones Negative (Negative); Urine Protein 100 (2+) mg/dL (Neg-Trace)
[2022-08-13 10:50] LABS: Bacteria Urine None Seen (None Seen); Hyaline Casts Urine 0-2 /LPF (0-2); RBC Urine 0-2 /HPF (0-2); Squamous Epithelial Cell Urine 0-2 /HPF (0-2); WBC Urine 0-5 /HPF (0-5)
[2022-08-13 10:52] LABS: OBS Int Ctl Valid YES; OBS1 NEGATIVE (NEGATIVE)
--- NOTE | 2022-08-13 10:56 | MHC.EDTECH ---
repeat EKG done. 10;56
[2022-08-13 10:59] LABS: MANUAL DIFF FLAG NO
[2022-08-13 11:07] LABS: Basophils Absolute Auto 0.1 X10*3/uL (0.0-0.2); Basophils Percent Auto 0.8 % (0-2); Eosinophils Absolute Auto 0.9 X10*3/uL (0.0-0.4); Eosinophils Percent Auto 11.7 % (0-4); Hematocrit 45.6 % (42.0-52.0); Hemoglobin 15.6 g/dl (14.0-18.0); Imm Gran Abs Auto 0.02 X10*3/uL (0.00-0.03); Imm Gran Pct Auto 0.3 % (0.0-0.4); Mean Corpuscular HGB Conc 34.2 g/dl (31.0-36.0); Mean Corpuscular Hemoglobin 29.3 pg (27.0-33.0); Mean Corpuscular Volume 85.6 fL (80.0-98.0); Mean Platelet Volume 9.9 fL (9.4-12.4); Monocytes Absolute Auto 0.6 X10*3/uL (0.1-1.2); Monocytes Percent Auto 8.3 % (2-11); Neutrophils Absolute Auto 4.1 x10*3/uL (2.0-8.3); Neutrophils Percent Auto 52.9 % (45-73); Platelet Count 184 X10*3/uL (160-400); Red Blood Count 5.33 X10*6/uL (4.60-5.80); Red Cell Distribution Width 12.1 % (11.0-16.0); White Blood Count 7.7 X10*3/uL (4.8-10.8)
[2022-08-13 11:16] VITALS: BP 156/73; PULSE 85
[2022-08-13 11:18] VITALS: BP 145/66; PULSE 65
[2022-08-13 11:19] VITALS: BP 152/73; PULSE 69
[2022-08-13 11:20] LABS: Partial Thromboplastin Time 32.7 SEC (26.0-36.4)
--- NOTE | 2022-08-13 11:21 | PC.NURSE ---
pt AOx3, reporting slight dizziness since yesterday, orthostatic vitals negative. reporting 8/10 lower back pain on the left side. abd soft, non tender. no SOB
[2022-08-13 11:35] LABS: Alanine Aminotransferase 17 U/L (0-40); Alkaline Phosphatase 85 U/L (39-117); Anion Gap 12 (12-20); Aspartate Amino Transferase 16 U/L (5-37); Bilirubin Direct 0.3 mg/dL (0.0-0.5); Bilirubin Total 0.8 mg/dL (0.0-1.0); Blood Urea Nitrogen 10 mg/dL (9-16); Calcium 9.4 mg/dL (8.4-10.2); Carbon Dioxide 23 mmol/L (22-29); Chloride 104 mmol/L (96-108); Creatinine Clr Calc Pharmacy 60.1; Estimated Glomerular Filt Rate > 60; Glucose Random 358 mg/dL (60-115); Lipase 46 U/L (8-78); Potassium 3.7 mmol/L (3.3-5.1); Sodium 135 mmol/L (135-145); Total Protein 6.5 g/dL (6.5-8.0)
[2022-08-13 11:39] LABS: Troponin-I High Sensitivity 8.5 ng/L (<3.5-35.0)
--- NOTE | 2022-08-13 12:21 | PC.NURSE ---
pt does not have IV access, MD aware and is changing order to SQ insulin.
--- NOTE | 2022-08-13 12:40 | PHA.MEDREC ---
Pharmacy Consult ? Medication Reconciliation Pharmacy has completed the medication reconciliation. Spoke to patient to confirm medications. Patient reported to be non-adherent to multiple medications, and reports that he stopped taking them because it hurt their stomach. Recent office visit on 08/03/[address] Machuca was used to help confirm medications as well.
[2022-08-13] MEDS: Insulin Glargine,Hum.rec.anlog 100 UNIT/ML 10 ML VIAL SUBCUT (13:10)
[2022-08-13] MEDS: metFORMIN HCl ER 500 MG TAB.ER.24H PO (13:10)
--- NOTE | 2022-08-13 13:12 | PC.NURSE ---
insulin SQ and metformin given per order for 358 BG
[2022-08-13 14:52] LABS: Glucose, Whole Blood 229 mg/dL (60-115)
[2022-08-13 15:33] VITALS: BP 138/70; PULSE 60; TEMP 36.5; O2SAT 96
== END 2022-08-13 15:46 | disposition home or self-care (01) ==
PROVIDERS: Emergency Provider Emergency Medicine; PCP Internal Medicine
DX: M54.50 Low back pain, unspecified (principal); E11.65 Type 2 diabetes mellitus with hyperglycemia; I10 Essential (primary) hypertension; E78.00 Pure hypercholesterolemia, unspecified; Z79.02 Long term (current) use of antithrombotics/antiplatelets; Z79.899 Other long term (current) drug therapy; Z79.84 Long term (current) use of oral hypoglycemic drugs
CPT/HCPCS: 36415; 74176; 80048; 80076; 81001; 82272; 82947; 83690; 84484; 85025; 85610; 85730; 93005; 99284; 99285

== ENCOUNTER 2022-12-09 08:18 | Outpatient (AMB) | payer OTHER, SELFPAY ==
[2022-12-09 08:24] VITALS: BP 128/72; PULSE 68; O2SAT 97; BMI 30.3
--- NOTE | 2022-12-09 08:24 | MHC.PC.OV ---
Vital Signs 12/09/22 08:24 Height 5 ft 5 in Weight 182 lb BMI 30.3 BP 128/72 Blood Pressure Location Lt brachial Position Sitting Pulse 68 Pulse Source Pulse Oximeter Pulse Oximetry (%) 97 Oxygen Delivery Method Room Air Intake Visit Reasons: [facility] 12/06/22 Right Knee Gave Out Allergies No Known Allergies Allergy (Verified 12/09/22 08:34) Medication List - Last Reconciled 12/09/22 by LADY Sexton amlodipine 10 mg PO DAILY 90 days atenolol 50 mg PO DAILY 90 days atorvastatin 80 mg PO DAILY cholecalciferol (vitamin D3) 50 mcg PO DAILY 90 days diabetic supplies, miscellan. Diabetic shoes (1 pair) gabapentin 300 mg PO BID glipizide 10 mg PO BID hydralazine 25 mg PO BID hydrochlorothiazide 25 mg PO DAILY ibuprofen 800 mg PO TID PRN 10 days lidocaine 4% (Aspercreme (lidocaine)) 1 patch topical DAILY PRN losartan 100 mg PO DAILY metformin 1,000 mg PO BID omeprazole 20 mg PO DAILY@0630 PRN pioglitazone 30 mg PO DAILY 90 days tizanidine 4 mg PO Q8H PRN tizanidine 4 mg PO TID PRN trazodone 25 mg (1/2 x 50 mg) PO BEDTIME PRN Tobacco use date assessed: 11/11/22 Fall risk assessment: 1 Fall in past year Last assessed Fall Risk: 12/09/22 Dental Screening Dental Screen Date: 12/09/22 Did you have a dental visit in the last 12 months?: Yes Did you have a dental problem in the last 6 months where you did not have access to dental care?: No Was dental information given to patient?: Patient has dentist HPI [facility] 12/06/22 Right Knee Gave Out HPI Details Patient is a 72-year-old male who presents today to follow-up on [facility] Emergency Department visit 12/06/2022 due to right knee gave out. Patient of Dr. Machuca. Medical history significant for diabetes, hypercholesterolemia, hypertension among others. No discharge notes available at the time of visit, this was requested. Patient reports that he did have right knee x-ray which showed arthritis, he also was discharged home with medication which helping him with pain - he does not remember the name. He reports right knee pain for the past 2 months, lateral aspect, pain is worse with ambulation or when he is sleeping, reports that pain radiates up and down the leg. Reports chronic numbness in both of his feet. Ambulates with a cane. [facility] Medical History Benign essential hypertension Complex regional pain syndrome type 2 of left upper extremity Dermatitis Diabetes type 2, controlled Hypercholesteremia Hypertension Insomnia Lumbar degenerative disc disease Obesity (BMI 30-39.9) Primary osteoarthritis of right shoulder Proteinuria, unspecified Pure hypercholesterolemia Type 2 diabetes mellitus with other diabetic kidney complication Vitamin D deficiency Surgical History History of colonoscopy Status post right rotator cuff repair Family History Mother CVD (cardiovascular disease) Father No problems noted. Social History Housing: Apartment Alcohol intake: current Alcohol intake frequency: holidays/special occasions only Patient Tobacco Use Status: Former Tobacco user Tobacco use type: Cigarette e-Cigarette/Vaping Use: Never Used Second Hand Smoke Exposure: Yes service: No Current occupational status: retired Cognitive needs: No Hearing needs: No (Pt has an old pair of hearing aid. ) Vision needs: Yes Questionnaire PHQ-9 Over the last 2 weeks, how often have you been bothered by any of the following problems? 1. Little interest or pleasure in doing things: not at all 2. Feeling down, depressed, or hopeless: not at all 3. Trouble falling or staying asleep, or sleeping too much: nearly every day 4. Feeling tired or having little energy: not at all 5. Poor appetite or overeating: not at all 6. Feeling bad about yourself - or that you are a failure or have let yourself or your family down: not at all 7. Trouble concentrating on things, such as reading the newspaper or watching television: not at all 8. Moving or speaking so slowly that other people could have noticed. Or the opposite - being so fidgety or restless that you have been moving around a lot more than usual: not at all 9. Thoughts that you would be better off or of hurting yourself in some way: not at all Total score: 3 Depression Screening Interpretation: Negative 49261 - PHQ-9 Billing: Yes Source: Developed by Drs. Carmine Nguyen, Lee Ann Roblero, Jose An and colleagues, with an educational scout from [employer]. Thrive Questionnaire Date Thrive assessed: 11/11/22 AUDIT C Alcohol Use Questionnaire (AUDIT-C) 1. How often do you have a drink containing alcohol?: Never 3. How often do you have six or more drinks on one occasion?: Never Total Score: 0 Score Reviewed/Action Taken: No JACQUI-7 AMB Questionnaire JACQUI-7 Date JACQUI - 7 assessed: 08/03/22 Source: Developed by Drs. Carmine Nguyen, Jose Polanco and colleagues, with an educational scout from [employer]. Review of Systems Const Denies body aches, Denies chills, Denies fever(s) and Denies headache(s) Eyes Denies change in vision ENT Denies dizziness, Denies otalgia, Denies headache(s), Denies nasal discharge, Denies sinus pain and Denies sore throat Card Denies chest pain, Denies edema, Denies lightheadedness and Denies dyspnea Resp Denies cough and Denies dyspnea GI Denies abdominal pain Denies dysuria Musc Reports as per HPI, Reports back pain, Denies myalgias and Reports arthralgias Skin/Breast Denies rash Neuro Denies dizziness and Denies headache(s) Physical exam (Primary Care) Vital Signs: Last Vital Signs Pulse 68 12/09/22 08:24 BP 128/72 12/09/22 08:24 Pulse Ox 97 12/09/22 08:24 Oxygen Delivery Method Room Air 12/09/22 08:24 BMI result Body Mass Index 30.3 Tobacco/Smoking Status: Tobacco use Status Tobacco use date assessed 11/11/22 12/09/22 08:28 Patient Tobacco Use Status Former Tobacco user 12/09/22 08:28 Tobacco use type Cigarette 12/09/22 08:28 e-Cigarette/Vaping Use Never Used 12/09/22 08:28 PHQ-9: PHQ-9 Score PHQ-9: Total score 3 12/09/22 08:36 Depression Screening Interpretation: Negative Thrive Assessment: Date of Thrive Assessment Date Thrive assessed 11/11/22 12/09/22 08:28 Const Other: Patient ambulates with a cane General: cooperative and no acute distress Orientation/consciousness: patient oriented x3 HENMT Head: Yes normocephalic and Yes atraumatic Mouth: oropharynx normal and moist mucous membranes Throat: Yes posterior oropharynx normal Eyes General: appearance normal, both eyes and all related structures Neck Neck: Yes normal visual inspection and Yes full ROM Resp Effort & Inspection: normal respiratory effort and able to speak in complete sentences Auscultation: clear to auscultation bilaterally, no crackles, no rales, no rhonchi and no wheezes Cardio Rate: regular rate Rhythm: regular rhythm Heart sounds: S1 normal heart sound present and S2 normal heart sound present GI Auscultation: normal bowel sounds Skin General skin exam: no rashes or lesions noted Neuro General: patient oriented x3 Extrem Other: Right knee normal to inspection, nontender, no erythema, mild pain with range of motion. General: Yes full ROM and No edema Assessment and Plan Assessment & Plan (1) Right knee pain: Code(s): M25.561 - Pain in right knee Plan: Discharge notes from ED were requested, not available. Will refer patient to physical therapy Orthopedics referral Will provide patient with lidocaine patch daily p.r.n. and Tylenol 650 mg every 6 hours p.r.n. Patient reports that ED gave him medications to help with pain, he does not remember the name of the medication. Plan Keep appointment with PCP as scheduled or follow-up sooner as needed Orders: Orders PT Evaluation and Treatment Today M25.561 - Pain in right knee Referrals Orthopedics Referral M25.561 - Pain in right knee Medications: New acetaminophen (Tylenol) 650 mg (2 x 325 mg) PO Q6H PRN 60 tabs 0RF pain M25.561 - Pain in right knee Refilled lidocaine 4% (Aspercreme (lidocaine)) 1 patch topical DAILY PRN 30 ea 0RF pain M25.561 - Pain in right knee Discontinued omeprazole 20 mg PO DAILY 90 days 90 caps 1RF ibuprofen Discontinued Reason: Patient no longer taking 800 mg PO TID 10 days PRN 30 tabs 1RF pain Coding Level of Care Code Est Pt Level 3 (61994) Diagnoses Right knee pain M25.561
== END 2022-12-09 09:00 | disposition home or self-care (01) ==
PROVIDERS: PCP Internal Medicine; Visit Provider Nurse Practitioner Family
DX: M25.561 Pain in right knee (principal)
CPT/HCPCS: 99213

== ENCOUNTER 2023-01-19 19:21 | Emergency (ER) | payer OTHER, SELFPAY ==
[2023-01-19 19:49] VITALS: BP 158/70; PULSE 57; RESP 18; TEMP 36.4; O2SAT 97; BMI 30.6
--- NOTE | 2023-01-19 19:52 | ED_ITS ---
HPI - General Adult General Chief complaint: General Medical Stated complaint: High blood sugar 2weeks Time Seen by Provider: 01/19/23 21:44 Source: patient, RN notes reviewed and old records reviewed Mode of arrival: ambulatory History of Present Illness HPI narrative: 72-year-old male with past medical history significant for [id number] diabetes presents for evaluation of ?high blood sugars. ? The patient reports that he takes metformin 1 g b.i.d. He he reports that his blood sugar is up until recently have been around 120 pretty consistently Over the last 2 weeks his blood sugars have been elevated above normal. He states they range anywhere from about 200-400 He reports increased thirst and fatigue Denies any other symptoms including cough, shortness of breath, abdominal pain, nausea vomiting, fevers, chills He sees his PCP in follow-up next month Related Data Home Medications Medication Instructions Recorded Confirmed glipizide 5 mg tablet 10 mg PO BID 03/20/20 12/09/22 hydrochlorothiazide 25 mg tablet 25 mg PO DAILY 03/20/20 12/09/22 gabapentin 300 mg capsule 300 mg PO BID 05/07/21 12/09/22 omeprazole 20 mg capsule,delayed 20 mg PO DAILY@0630 PRN Acid Reflux 08/13/22 12/09/22 release Previous Rx's Medication Instructions Recorded diabetic supplies, miscellan. #1 ea 03/09/20 tizanidine 4 mg tablet 4 mg PO TID PRN for muscle spasm 09/07/21 #90 tabs hydralazine 25 mg tablet 25 mg PO BID #180 tabs 11/18/21 cholecalciferol (vitamin D3) 50 50 mcg PO DAILY 90 days #90 tabs 01/26/22 mcg (2,000 unit) tablet amlodipine 10 mg tablet 10 mg PO DAILY 90 days #90 tabs 08/18/22 atenolol 50 mg tablet 50 mg PO DAILY 90 days #90 tabs 08/18/22 atorvastatin 80 mg tablet 80 mg PO DAILY #90 tabs 08/18/22 losartan 100 mg tablet 100 mg PO DAILY #90 tabs 08/18/22 metformin 1,000 mg tablet 1,000 mg PO BID #180 tabs 08/18/22 pioglitazone 30 mg tablet 30 mg PO DAILY 90 days #90 tabs 08/18/22 tizanidine 4 mg tablet 4 mg PO Q8H PRN muscle spasticity 09/28/22 #60 tabs acetaminophen 325 mg tablet 650 mg (2 x 325 mg) PO Q6H PRN 12/09/22 (Tylenol) pain #60 tabs lidocaine 4 % topical patch 1 patch topical DAILY PRN pain #30 12/09/22 (Aspercreme (lidocaine)) ea Salonpas (lidocaine) 4 % topical 1 patch topical BID PRN pain #60 ea 12/20/22 patch (lidocaine) DIABETIC SHOES (1 pair) - size TBD #2 ea 01/03/23 based on patient trazodone 50 mg tablet 25 mg (1/2 x 50 mg) PO BEDTIME PRN 01/03/23 for insomnia #45 tabs diabetic shoe inserts #6 inserts 01/06/23 Allergies Allergy/AdvReac Type Severity Reaction Status Date / Time No Known Allergies Allergy Verified 01/19/23 19:49 Review of Systems 2 Constitutional: Constitutional: Reports as per HPI, Denies chills, Denies fatigue, Denies fever(s) and Denies headache(s) ENT: Denies headache(s) Cardiovascular: Cardiovascular: Denies chest pain and Denies dyspnea Respiratory: Respiratory: Denies cough and Denies dyspnea Gastrointestinal: Gastrointestinal: Denies abdominal pain, Denies constipation and Denies vomiting Genitourinary: Genitourinary: Denies difficulty urinating and Denies dysuria Neurologic: Denies headache(s) and Denies focal weakness Endocrine: Endocrine: Denies fatigue, Reports polydipsia and Reports polyuria PMFSH Past Medical History Medical History Benign essential hypertension Complex regional pain syndrome type 2 of left upper extremity Dermatitis Diabetes type 2, controlled Hypercholesteremia Hypertension Insomnia Lumbar degenerative disc disease Obesity (BMI 30-39.9) Primary osteoarthritis of right shoulder Proteinuria, unspecified Pure hypercholesterolemia Type 2 diabetes mellitus with other diabetic kidney complication Vitamin D deficiency Surgical History History of colonoscopy Status post right rotator cuff repair Family History Family History Mother CVD (cardiovascular disease) Father No problems noted. Social History Social History Housing: Apartment Alcohol intake: current Alcohol intake frequency: a few times a month Alcohol type: beer Patient Tobacco Use Status: Former Tobacco user Tobacco use type: Cigarette Smoked in Last 30 Days: No e-Cigarette/Vaping Use: Never Used Second Hand Smoke Exposure: Yes Use of substances other than those prescribed or required for medical reasons: No Advance Directives: No Advance Directives Information Provided: No service: No Current occupational status: retired Cognitive needs: No Hearing needs: No (Pt has an old pair of hearing aid. ) Vision needs: Yes Physical Exam ED Vital Signs: Vital Signs - 24 hr 01/19/23 19:49 Temperature 97.6 F Pulse Rate 57 Respiratory Rate 18 Blood Pressure 158/70 H Pulse Oximetry 97 Oxygen Delivery Method Room Air BMI result Body Mass Index 30.6 Const General: healthy appearing, comfortable, no acute distress, alert and awake Nutritional Appearance: well nourished Orientation/consciousness: patient oriented x3 HENMT Head: Yes normocephalic and Yes atraumatic Eyes Eyelids: Yes eyelids normal Conjunctivae: conjunctivae normal Sclerae: sclerae normal Corneas: corneas normal Pupils: Equal, round and reactive pupils present EOM: EOMs intact bilaterally Neck Neck: Yes full ROM Resp Effort & Inspection: normal respiratory effort, able to speak in complete sentences and not labored Skin General skin exam: elasticity normal Neuro General: patient oriented x3 Cranial nerves: Yes Equal, round and reactive pupils present and Yes Bilaterally intact EOM present Cognition (Neuro): normal cognition Extrem Other: Moving all extremities well without any obvious deformities Course Course Course Narrative: This is an RME: Additional HPI, ROS, PE not included below will be deferred to primary provider. This is a 72-year-old male, with a past medical history of diabetes, lumbar degenerative disc disease, and hyperlipidemia, presenting to the emergency department with complaints hyperglycemia. Patient reports that over the last 2 weeks, patient has had elevated sugars for the last 2 weeks between the 250s in 450 is, he is unable to get an appointment with his primary care and next month. He has been taking metformin 1000 mg twice a day without any missed dosages. He reports last blood glucose level was 248. Admitting increased fatigue and increased water intake. Plan: Point of care, additional labs ordered. Medical Decision Making Medical Decision Making MDM Narrative: 72-year-old male presents for evaluation of elevated blood sugars. He is hyperglycemia was not evidence of DKA. It is unclear the cause of his uncontrolled glucose, may be related to increased insulin resistance. The patient does admit to poor diet. He was encouraged to improve his diet and attempt to begin exercising. He will follow-up with his PCP Differential Diagnosis Differential Diagnoses: The differential diagnosis associated with the presentation includes Hyperglycemia DKA HHS Medication noncompliance Insulin resistant Lab Data [facility] Lab Attestation statement: I reviewed the patient's lab results. No leukocytosis or anemia. No significant electrolyte abnormalities. Patient's glucose elevated to 191. Normal CO2 level, normal anion gap. 01/19/23 20:19 01/19/23 20:19 Labs: Lab Results 01/19/23 01/19/23 01/19/23 Range/Units 20:00 20:19 20:23 WBC 7.1 (4.8-10.8) X10*3/uL RBC 5.02 (4.60-5.80) X10*6/uL Hgb 14.8 (14.0-18.0) g/dl Hct 43.7 (42.0-52.0) % MCV 87.1 (80.0-98.0) fL MCH 29.5 (27.0-33.0) pg MCHC 33.9 (31.0-36.0) g/dl RDW 12.7 (11.0-16.0) % Plt Count 187 (160-400) X10*3/uL MPV 9.5 (9.4-12.4) fL Immature Gran % (Auto) 0.1 (0.0-0.4) % Neut % (Auto) 48.1 (45-73) % Lymph % (Auto) 30.2 (20-40) % Weld % (Auto) 11.2 H (2-11) % Eos % (Auto) 9.4 H (0-4) % Baso % (Auto) 1.0 (0-2) % Lymph # (Auto) 2.1 (1.2-4.9) X10*3/uL Weld # (Auto) 0.8 (0.1-1.2) X10*3/uL Eos # (Auto) 0.7 H (0.0-0.4) X10*3/uL Baso # (Auto) 0.1 (0.0-0.2) X10*3/uL Abs Immat Gran (auto) 0.01 (0.00-0.03) X10*3/uL Absolute Neuts (auto) 3.4 (2.0-8.3) x10*3/uL Absolute Nucleated RBC 0.000 (0.0-0.012) X10*3/uL Nucleated RBC % (auto) 0.0 (0.0-0.2) /100WBC Sodium 140 (135-145) mmol/L Potassium 4.4 (3.3-5.1) mmol/L Chloride 106 (96-108) mmol/L Carbon Dioxide 27 (22-29) mmol/L Anion Gap 11 L (12-20) BUN 18 H (9-16) mg/dL Creatinine 1.25 (0.5-1.4) mg/dL Estim Creat Clear Calc 51.5 Estimated GFR 56 POC Glucose 202 H (60-115) mg/dL Random Glucose 191 H (60-115) mg/dL Calcium 10.2 D (8.4-10.2) mg/dL Total Bilirubin 0.5 (0.0-1.0) mg/dL Direct Bilirubin 0.2 (0.0-0.5) mg/dL AST 23 (5-37) U/L ALT 20 (0-40) U/L Alkaline Phosphatase 66 (39-117) U/L Total Protein 7.1 (6.5-8.0) g/dL Albumin 4.2 (3.5-5.0) g/dL Beta-Hydroxybutyrate 0.10 (0.02-0.27) mmol/L Urine Color Yellow Urine Appearance Clear Urine pH 6.5 (5.0-9.0) Ur Specific [place] 1.025 (1.005-1.025) Urine Protein 100 (2+) H (Neg-Trace) mg/dL Urine Glucose (UA) >=1000 H (Negative) mg/dL Urine Ketones Negative (Negative) mg/dL Urine Blood Negative (Negative) Urine Nitrite Negative (Negative) Ur Leukocyte Esterase Negative (Negative) Urine RBC 0-2 (0-2) /HPF Urine WBC 0-5 (0-5) /HPF Ur Squamous Epith Cells 0-2 (0-2) /HPF Urine Bacteria None Seen (None Seen) Hyaline Casts 0-2 (0-2) /LPF Discharge Plan Discharge Clinical Impression: Acute hyperglycemia Patient Disposition: Home, Self-Care Instructions: Diabetic Hyperglycemia (ED) Additional Instructions: Continue taking all of her medications as prescribed Try to avoid complex carbs and high sugar foods You should start to exercise a few minutes per day and increase to about 30 minutes per day Follow-up with your primary doctor when able Prescriptions: No Action (DME) diabetic supplies, miscellan. Misc See Rx Instructions .ROUTE .MEDSUPPLY Qty: 1 0RF Rx Instructions: Diabetic shoes (1 pair) tizanidine 4 mg tablet 4 mg PO TID PRN (Reason: for muscle spasm) Qty: 90 0RF hydralazine 25 mg tablet 25 mg PO BID Qty: 180 2RF tizanidine 4 mg tablet 4 mg PO Q8H PRN (Reason: muscle spasticity) Qty: 60 0RF lidocaine [Salonpas (lidocaine)] 4 % adhesive patch,medicated 1 patch topical BID PRN (Reason: pain) Qty: 60 5RF (DME) DIABETIC SHOES (1 pair) - size TBD based on patient See Rx Instructions .Route .MEDSUPPLY Qty: 2 1RF Rx Instructions: As directed trazodone 50 mg tablet 25 mg PO BEDTIME PRN (Reason: for insomnia) Qty: 45 1RF (DME) diabetic shoe inserts See Rx Instructions .Route .MEDSUPPLY Qty: 6 0RF Rx Instructions: As directed omeprazole 20 mg capsule,delayed release(DR/EC) 20 mg PO DAILY@0630 PRN (Reason: Acid Reflux) glipizide 5 mg tablet 10 mg PO BID hydrochlorothiazide 25 mg tablet 25 mg PO DAILY atorvastatin 80 mg tablet 80 mg PO DAILY Qty: 90 1RF metformin 1,000 mg tablet 1,000 mg PO BID Qty: 180 1RF losartan 100 mg tablet 100 mg PO DAILY Qty: 90 1RF pioglitazone 30 mg tablet 30 mg PO DAILY 90 Days Qty: 90 1RF amlodipine 10 mg tablet 10 mg PO DAILY 90 Days Qty: 90 1RF atenolol 50 mg tablet 50 mg PO DAILY 90 Days Qty: 90 1RF lidocaine [Aspercreme (lidocaine)] 4 % adhesive patch,medicated 1 patch topical DAILY PRN (Reason: pain) Qty: 30 0RF acetaminophen [Tylenol] 325 mg tablet 650 mg PO Q6H PRN (Reason: pain) Qty: 60 0RF gabapentin 300 mg capsule 300 mg PO BID cholecalciferol (vitamin D3) 50 mcg (2,000 unit) tablet 50 mcg PO DAILY 90 Days Qty: 90 3RF
[2023-01-19 20:05] LABS: Glucose, Whole Blood 202 mg/dL (60-115)
[2023-01-19 20:27] LABS: MANUAL DIFF FLAG NO
[2023-01-19 20:30] LABS: Appearance Urine Clear; Color Urine Yellow; Glucose Urine UA >=1000 mg/dL (Negative); Leukocyte Esterase Urine Negative (Negative); Nitrite Urine Negative (Negative); PH 6.5 (5.0-9.0); Specific Gravity - Urine 1.025 (1.005-1.025); UMIC TRIGGER UACC YES; Urine Blood Negative (Negative); Urine Ketones Negative (Negative); Urine Protein 100 (2+) mg/dL (Neg-Trace)
[2023-01-19 20:30] LABS: Basophils Absolute Auto 0.1 X10*3/uL (0.0-0.2); Eosinophils Absolute Auto 0.7 X10*3/uL (0.0-0.4); Eosinophils Percent Auto 9.4 % (0-4); Hematocrit 43.7 % (42.0-52.0); Hemoglobin 14.8 g/dl (14.0-18.0); Imm Gran Abs Auto 0.01 X10*3/uL (0.00-0.03); Imm Gran Pct Auto 0.1 % (0.0-0.4); Lymphocytes Absolute Auto 2.1 X10*3/uL (1.2-4.9); Lymphocytes Percent Auto 30.2 % (20-40); Mean Corpuscular HGB Conc 33.9 g/dl (31.0-36.0); Mean Corpuscular Hemoglobin 29.5 pg (27.0-33.0); Mean Corpuscular Volume 87.1 fL (80.0-98.0); Mean Platelet Volume 9.5 fL (9.4-12.4); Monocytes Absolute Auto 0.8 X10*3/uL (0.1-1.2); Monocytes Percent Auto 11.2 % (2-11); Neutrophils Absolute Auto 3.4 x10*3/uL (2.0-8.3); Neutrophils Percent Auto 48.1 % (45-73); Platelet Count 187 X10*3/uL (160-400); Red Blood Count 5.02 X10*6/uL (4.60-5.80); Red Cell Distribution Width 12.7 % (11.0-16.0); White Blood Count 7.1 X10*3/uL (4.8-10.8)
[2023-01-19 20:45] LABS: Alanine Aminotransferase 20 U/L (0-40); Albumin Level 4.2 g/dL (3.5-5.0); Alkaline Phosphatase 66 U/L (39-117); Anion Gap 11 (12-20); Aspartate Amino Transferase 23 U/L (5-37); Bilirubin Direct 0.2 mg/dL (0.0-0.5); Bilirubin Total 0.5 mg/dL (0.0-1.0); Blood Urea Nitrogen 18 mg/dL (9-16); Calcium 10.2 mg/dL (8.4-10.2); Carbon Dioxide 27 mmol/L (22-29); Chloride 106 mmol/L (96-108); Creatinine Clr Calc Pharmacy 51.5; Estimated Glomerular Filt Rate 56; Glucose Random 191 mg/dL (60-115); Potassium 4.4 mmol/L (3.3-5.1); Sodium 140 mmol/L (135-145); Total Protein 7.1 g/dL (6.5-8.0)
[2023-01-19 20:58] LABS: Bacteria Urine None Seen (None Seen); Hyaline Casts Urine 0-2 /LPF (0-2); RBC Urine 0-2 /HPF (0-2); Squamous Epithelial Cell Urine 0-2 /HPF (0-2); WBC Urine 0-5 /HPF (0-5)
[2023-01-19 22:14] VITALS: BP 149/73; PULSE 66; RESP 15; O2SAT 98
== END 2023-01-19 22:20 | disposition home or self-care (01) ==
PROVIDERS: Physician Assistant Medical; Emergency Provider Internal Medicine; PCP Internal Medicine
DX: E11.65 Type 2 diabetes mellitus with hyperglycemia (principal); I10 Essential (primary) hypertension; E78.00 Pure hypercholesterolemia, unspecified; Z87.891 Personal history of nicotine dependence; Z79.84 Long term (current) use of oral hypoglycemic drugs; Z79.899 Other long term (current) drug therapy
CPT/HCPCS: 36415; 80048; 80076; 81001; 82010; 82947; 85025; 99283; 99284

== ENCOUNTER 2023-01-31 14:39 | Outpatient (REF) | payer OTHER, SELFPAY | END 2023-01-31 14:40 | disposition home or self-care (01) | LOC: HO.HOSX 14:39 | PROVIDERS: Visit Provider Physician Assistant | DX: Z13.89 Encounter for screening for other disorder (principal) ==

== ENCOUNTER 2023-02-01 11:53 | Outpatient (AMB) | payer OTHER, SELFPAY ==
[2023-02-01 12:34] VITALS: BMI 30.4
--- NOTE | 2023-02-01 12:34 | MHC.OFFVIS ---
Intake Vital Signs 02/01/23 12:34 Height 5 ft 5 in Weight 183 lb BMI 30.4 Intake Visit Reasons: new Prob- right knee pain Intake Note: Benito is a 72 year old male who presents today for a new problem visit with complaints of bilateral knee pain. Patient reports that he has had right knee pain for about 2 months now, he takes tylenol & Ibuprofen for his pain which does not help. No previous therapies. His pain is worse at night Allergies No Known Allergies Allergy (Verified 01/19/23 19:49) HPI new Prob- right knee pain HPI Details 72-year-old male who presents to the office today for evaluation of right knee pain for about 2 months. He states he has pain in his right knee which is aggravated at night. He finds no relief with Tylenol or ibuprofen. He has not had any therapy in the past. [facility] Medical History Benign essential hypertension Complex regional pain syndrome type 2 of left upper extremity Dermatitis Diabetes type 2, controlled Hypercholesteremia Hypertension Insomnia Lumbar degenerative disc disease Obesity (BMI 30-39.9) Primary osteoarthritis of right shoulder Proteinuria, unspecified Pure hypercholesterolemia Type 2 diabetes mellitus with other diabetic kidney complication Vitamin D deficiency Surgical History History of colonoscopy Status post right rotator cuff repair Family History Mother CVD (cardiovascular disease) Father No problems noted. Social History Housing: Apartment Alcohol intake: current Alcohol intake frequency: a few times a month Alcohol type: beer Patient Tobacco Use Status: Former Tobacco user Tobacco use type: Cigarette e-Cigarette/Vaping Use: Never Used Second Hand Smoke Exposure: Yes service: No Current occupational status: retired Cognitive needs: No Hearing needs: No (Pt has an old pair of hearing aid. ) Vision needs: Yes Review of Systems Const All systems reviewed & are unremarkable except as noted in HPI and below Physical Exam Vital Signs: BMI result Body Mass Index 30.4 Extrem Other: Bilateral knee: Skin intact, no erythema or joint effusion. Tenderness along the medial and lateral joint line. Full ROM with crepitus. Negative Soni?s. No ligamentous laxity. NVI. Results Reviewed Results Reviewed: Xrays were obtained in the office today and personally reviewed by me of aramis knee show mild oa with osteophyte formation Assessment & Plan Assessment & Plan (1) Osteoarthritis of left knee: Code(s): M17.12 - Unilateral primary osteoarthritis, left knee Qualifiers: Osteoarthritis type: primary Qualified Code(s): M17.12 - Unilateral primary osteoarthritis, left knee (2) Osteoarthritis of right knee: Code(s): M17.11 - Unilateral primary osteoarthritis, right knee Qualifiers: Osteoarthritis type: primary Qualified Code(s): M17.11 - Unilateral primary osteoarthritis, right knee Plan We discussed options which include PT, NSAIDs and injections. The patient will defer on the injection today and proceed with PT and NSAIDs. I did give him a prescription of Celebrex in the office today. If symptoms persist, the patient will contact me for an injection, otherwise, PRN. Orders: Orders XR knee RT 2V 02/01/23 M25.569 - Pain in unspecified knee PT Evaluation and Treatment 02/01/23 M17.11 - Unilateral primary osteoarthritis, right knee, M17.12 - Unilateral primary osteoarthritis, left knee XR knee standing BI 02/01/23 M25.561 - Pain in right knee, M25.562 - Pain in left knee Medications: New celecoxib (Celebrex) 200 mg PO BID 30 days 60 caps 3RF Patient Instructions: Scribed for Julio Olson PA-C, by Alejandro Chan medical collections representative, on 02/01/2023 at 12:45 PM EST. Julio Martinez PA-C, have personally reviewed and agree with the information entered by the scribe. Coding Level of Care Code New Pt Level 3 (23718) Diagnoses Primary osteoarthritis of left knee M17.12 Osteoarthritis type: primary Primary osteoarthritis of right knee M17.11 Osteoarthritis type: primary
== END 2023-02-01 13:33 | disposition home or self-care (01) ==
PROVIDERS: PCP Internal Medicine; Visit Provider Physician Assistant
DX: M17.0 Bilateral primary osteoarthritis of knee (principal)
CPT/HCPCS: 99204

== ENCOUNTER 2023-02-01 14:33 | Outpatient (REF) | payer OTHER, SELFPAY ==
--- NOTE | ~2023-02-01 | XR_ITS ---
EXAMINATION: XR knee standing BI, XR knee RT 2V CLINICAL INFORMATION: 72 years male with right knee COMPARISON: Most recent right knee radiograph: 05/09/2013 and 10/04/2012 TECHNIQUE: AP bilateral weightbearing, sunrise view and lateral view of right knee FINDINGS: Bones and soft tissues are normal. No fracture or joint effusion. Alignment is anatomic. Joint spaces are well maintained. No abnormal soft tissue calcification. The medial, lateral and patellofemoral compartments are preserved. XR/XR knee standing BI There is mild osteophytosis of patella IMPRESSION: Mild osteophytosis of right patella
--- NOTE | ~2023-02-01 | XR_ITS ---
EXAMINATION: XR knee standing BI, XR knee RT 2V CLINICAL INFORMATION: 72 years male with right knee COMPARISON: Most recent right knee radiograph: 05/09/2013 and 10/04/2012 TECHNIQUE: AP bilateral weightbearing, sunrise view and lateral view of right knee FINDINGS: Bones and soft tissues are normal. No fracture or joint effusion. Alignment is anatomic. Joint spaces are well maintained. No abnormal soft tissue calcification. The medial, lateral and patellofemoral compartments are preserved. XR/XR knee RT 2V There is mild osteophytosis of patella IMPRESSION: Mild osteophytosis of right patella
== END 2023-02-01 14:34 | disposition home or self-care (01) ==
LOC: HO.HOSX 14:33
PROVIDERS: Visit Provider Physician Assistant
DX: M17.0 Bilateral primary osteoarthritis of knee (principal)
CPT/HCPCS: 73560; 73565

== ENCOUNTER 2023-02-10 12:15 | Outpatient (AMB) | payer OTHER, SELFPAY ==
[2023-02-10 12:33] VITALS: BP 122/68; PULSE 58; O2SAT 97; BMI 30.3
--- NOTE | 2023-02-10 12:33 | MHC.PC.OV ---
Vital Signs 02/10/23 12:33 Height 5 ft 5 in Weight 182 lb BMI 30.3 BP 122/68 Blood Pressure Location Lt brachial Position Sitting Pulse 58 Pulse Source Pulse Oximeter Pulse Oximetry (%) 97 Oxygen Delivery Method Room Air Intake Visit Reasons: F/u with Dr. 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 Diabetic shoes (1 pair) gabapentin 300 mg PO BID glipizide 10 mg PO BID hydralazine 25 mg PO BID hydrochlorothiazide 25 mg PO DAILY lidocaine 4% (Aspercreme (lidocaine)) 1 patch topical DAILY PRN losartan 100 mg PO DAILY metformin 1,000 mg PO BID omeprazole 20 mg PO DAILY@0630 PRN pioglitazone 30 mg PO DAILY 90 days Salonpas (lidocaine) 4% (lidocaine) 1 patch topical BID PRN NS tizanidine 4 mg PO Q8H PRN tizanidine 4 mg PO TID PRN trazodone 25 mg (1/2 x 50 mg) PO BEDTIME PRN Tobacco use date assessed: 02/10/23 Fall risk assessment: No Falls in past year Last assessed Fall Risk: 02/10/23 Dental Screening Dental Screen Date: 02/10/23 Did you have a dental visit in the last 12 months?: Yes Did you have a dental problem in the last 6 months where you did not have access to dental care?: No Was dental information given to patient?: Patient has dentist HPI F/u with Dr. Machuca on DM, HLD, HTN HPI Details Patient comes in today for his follow up visit He went to the ER here at [facility] a few weeks ago for increasing blood sugar readings lately as well as symptoms of uncontrolled diabetes Patient was following up with Dr. Jovita Hairston for his diabetes management in the past but we are currently unclear as to when he was last seen by Dr. Hairston as we have not received any correspondence at all from her practice in a while now - last note was sometime in April 2022 Patient states that he has not seen Dr. Hairston in a while now as they moved from [place] and he does not know where to go Have offered to refer him to Endocrinology here at [facility] but he states that transportation is a problem for him - he lives in [place] and does not always have a ride so coming to [place] or even going to [place] is sometimes difficult for him States that he has been trying to work on his diet but it remains to be seen how much it will help with his blood sugar He denies any headaches or dizziness Denies any chest pains, no SOB No nausea/vomiting, no abdominal pain No change in bowel habits noted Has no follow up labs done recently; most recent labs here are from when he went to the ER a few weeks ago [facility] Medical History Dermatitis Obesity (BMI 30-39.9) Insomnia Vitamin D deficiency Lumbar degenerative disc disease Complex regional pain syndrome type 2 of left upper extremity Primary osteoarthritis of right shoulder Benign essential hypertension Pure hypercholesterolemia Proteinuria, unspecified Type 2 diabetes mellitus with other diabetic kidney complication Hypercholesteremia Hypertension Diabetes type 2, controlled Surgical History History of colonoscopy Status post right rotator cuff repair Family History Mother CVD (cardiovascular disease) Father No problems noted. Social History Housing: Apartment Alcohol intake: current Alcohol intake frequency: a few times a month Alcohol type: beer Patient Tobacco Use Status: Former Tobacco user Tobacco use type: Cigarette e-Cigarette/Vaping Use: Never Used Second Hand Smoke Exposure: Yes service: No Current occupational status: retired Cognitive needs: No Hearing needs: No (Pt has an old pair of hearing aid. ) Vision needs: Yes Questionnaire PHQ-9 Over the last 2 weeks, how often have you been bothered by any of the following problems? 1. Little interest or pleasure in doing things: not at all 2. Feeling down, depressed, or hopeless: not at all 3. Trouble falling or staying asleep, or sleeping too much: nearly every day 4. Feeling tired or having little energy: not at all 5. Poor appetite or overeating: not at all 6. Feeling bad about yourself - or that you are a failure or have let yourself or your family down: not at all 7. Trouble concentrating on things, such as reading the newspaper or watching television: not at all 8. Moving or speaking so slowly that other people could have noticed. Or the opposite - being so fidgety or restless that you have been moving around a lot more than usual: not at all 9. Thoughts that you would be better off or of hurting yourself in some way: not at all Total score: 3 Depression Screening Interpretation: Negative Depression Screening Done: Yes [id number] - PHQ-9 Billing: Yes Source: Developed by Drs. Carmine Nguyen, Lee Ann Roblero, Jose An and colleagues, with an educational scout from [employer]. Thrive Questionnaire Date Thrive assessed: 02/10/23 I am a: Patient What is your living situation today?: I have a steady place to live Within the past 12 months, did the food you bought not last and you didn't have the money to get more?: Never true Within the past 12 months, did you worry whether your food would run out before you got money to buy more?: Never true Do you have trouble paying for medicines?: No Do you have trouble getting transportation to medical appointments?: No Do you have trouble paying your heating and electricity bill?: No Do you have trouble taking care of your child, family member or friend?: No Do you have trouble with day-to-day activities such as bathing, preparing meals, shopping, managing finances, etc.?: No Are you currently unemployed and looking for a job?: No Are you interested in more education?: No Please select the resources that you would like help with: None Currently or been in a relationship where the following occur: no concerns reported AUDIT C Alcohol Use Questionnaire (AUDIT-C) 1. How often do you have a drink containing alcohol?: Never 3. How often do you have six or more drinks on one occasion?: Never Total Score: 0 Score Reviewed/Action Taken: Yes JACQUI-7 AMB Questionnaire JACQUI-7 Date JACQUI - 7 assessed: 02/10/23 Feeling nervous, anxious, or on edge: 0 = Not at all Not being able to stop or control worryin = Not at all Worrying too much about different things: 0 = Not at all Trouble relaxin = Not at all Being so restless that it is hard to sit still: 0 = Not at all Becoming easily annoyed or irritable: 0 = Not at all Feeling afraid as if something awful might happen: 0 = Not at all Total JACQUI-7 score (0-4 normal; 5-9 mild; 10-14 moderate; 15-21 severe): 0 Source: Developed by Drs. Carmine Nguyen, Lee Ann Roblero, Jose An and colleagues, with an educational scout from [employer]. Review of Systems Const Denies chills, Denies fatigue, Denies fever(s) and Denies headache(s) ENT Denies dysphagia, Denies dizziness, Denies otalgia, Denies headache(s), Denies odynophagia and Denies sore throat Card Denies chest pain, Denies palpitations and Denies dyspnea Resp Denies chest congestion, Denies cough and Denies dyspnea GI Denies abdominal pain, Denies constipation, Denies dysphagia, Denies heartburn, Denies diarrhea, Denies nausea, Denies odynophagia and Denies vomiting Denies hematuria, Denies dysuria, Reports nocturia and Reports urinary frequency Musc Reports back pain (over the lower back - chronic; (+) left-sided low back pain lately) Skin/Breast Denies rash Neuro Denies dizziness and Denies headache(s) Endo Denies fatigue, Reports polydipsia, Reports polyuria and Denies palpitations Physical exam (Primary Care) Vital Signs: Last Vital Signs Pulse 58 02/10/23 12:33 BP 122/68 02/10/23 12:33 Pulse Ox 97 02/10/23 12:33 Oxygen Delivery Method Room Air 02/10/23 12:33 BMI result Body Mass Index 30.3 Tobacco/Smoking Status: Tobacco use Status Tobacco use date assessed 02/10/23 02/10/23 12:42 Patient Tobacco Use Status Former Tobacco user 02/10/23 12:42 Tobacco use type Cigarette 02/10/23 12:42 e-Cigarette/Vaping Use Never Used 02/10/23 12:42 PHQ-9: PHQ-9 Score PHQ-9: Total score 3 02/10/23 13:06 Depression Screening Interpretation: Negative Thrive Assessment: Date of Thrive Assessment Date Thrive assessed 02/10/23 02/10/23 12:42 Currently or been in a relationship where the following occur: no concerns reported Const General: no acute distress and alert HENMT Ears: TM's normal bilaterally and EAC's normal Throat: Yes posterior oropharynx normal and Yes tonsils normal (no TP congestion noted) Neck Neck: Yes no lymphadenopathy and Yes supple Resp Auscultation: clear to auscultation bilaterally, no rales and no wheezes Cardio Rate: regular rate Rhythm: regular rhythm Heart sounds: no murmurs GI Palpation (GI): Soft to palpation and nontender Auscultation: normal bowel sounds Back/Spine/Pelvis Thoracic/Lumbar Spine: straight leg raise negative bilaterally, paraspinal muscle tenderness on the left in the lower lumbar and lumbar spinal tenderness Extrem General: Yes no clubbing, cyanosis or edema Results AMB Hemoglobin A1c AMB Hemoglobin A1c 9.8 % Last Edit by N[place] on 02/10/23 13:07 Results Reviewed Results Reviewed: Laboratory Last Values Hgb A1c (Clinic) 9.8 % (4.0-6.0) H 02/10/23 13:07 Assessment and Plan Assessment & Plan (1) Type 2 diabetes mellitus with other diabetic kidney complication: Code(s): E11.29 - Type 2 diabetes mellitus with other diabetic kidney complication Plan: In-office HgbA1c today is at 9.8% (was at 10.4% a few months ago) - goal is < 7.0% His HgbA1c readings over the past couple of years have been steadily going up and in the wrong direction HgbA1c readings: 01/21/21 = 7.1% 05/06/21 = 7.3% 07/30/21 = 8.8% 10/01/21 = 9.8% 01/12/22 = 8.3% 04/27/22 = 10.4% 08/03/22 = 11.1% 11/11/22 = 10.4% Reinforced diabetic diet Continue Metformin 1000 mg BID, Pioglitazone 30 mg QD and Glipizide 5 mg 2 tablets BID for now He has been advised that he should start taking some injectable medication for his diabetes as it looks like the oral meds alone are no longer enough to control his diabetes BUT patient remains adamant that he DOES NOT WANT TO TAKE ANY INJECTIONS, especially INSULIN He was following up with [facility] (Dr. Jovita Hairston) regularly in the past but has not seen her since April 2022 - states that Dr. Hairston moved her practice to [place] and he cannot follow her up to [place] due to transportation issues Have offered to refer him to endocrinology here at [facility] but he states that even coming here to [place] is a challenge for him States that he saw some signs regarding a medical practice near his home address in [place] and that they also have endocrinology services there and he wants to try going there first He was advised that we will need to know the name of either the doctor or the practice so we can make out a referral for him - states that he will look into it later today and call us back with more information about this (2) Proteinuria, unspecified: Code(s): R80.9 - Proteinuria, unspecified Qualifiers: Proteinuria type: unspecified Qualified Code(s): R80.9 - Proteinuria, unspecified Plan: Will continue? to monitor his renal function regularly Reminded again that his proteinuria will continue to progress and get worse if his diabetes is not adequately controlled (3) Benign essential hypertension: Code(s): I10 - Essential (primary) hypertension Plan: Reinforced low-sodium diet -? goal is systolic BP of at least 130 to 140 mm or less Continue Losartan 100 mg QD, Hydrochlorothiazide 25 mg QD, Amlodipine 10 mg QD, Atenolol 100 mg QD and Hydralazine 25 mg BID (4) Pure hypercholesterolemia: Code(s): E78.00 - Pure hypercholesterolemia, unspecified Plan: Reinforced low cholesterol diet Continue Atorvastatin 80 mg QD Will recheck his labs and fasting lipids in 3 months for follow up (5) Lumbar degenerative disc disease: Code(s): M51.36 - Other intervertebral disc degeneration, lumbar region Plan: Reinforced activity and weight lifting restrictions Abdominal / pelvic CT done a few months ago revealed (+) degenerative disc disease, with mild canal stenosis and moderate bilateral neural foraminal stenosis at L4-L5, with no acute fracture or subluxation Continue Percocet 5-325 mg 1 tablet every 6-8 hours as needed and Gabapentin 300 mg BID Follow up with [facility] as scheduled (6) Vitamin D deficiency: Code(s): E55.9 - Vitamin D deficiency, unspecified Plan: Vitamin D level was low on his recent labs Continue Vitamin D3 2000 units daily (7) Primary osteoarthritis of right shoulder: Code(s): M19.011 - Primary osteoarthritis, right shoulder Plan: S/P right rotator cuff repair with some improvement of his symptoms MRI of the right shoulder done last year showed (+)? tendinosis, large subacromial spur, OA changes as well as a posterior labral tear in the shoulder Follow-up with Orthopedics as scheduled (8) Insomnia: Code(s): G47.00 - Insomnia, unspecified Qualifiers: Insomnia type: primary Qualified Code(s): F51.01 - Primary insomnia Plan: Sleep hygiene reinforced Continue Trazodone 50 mg once a day as needed (9) Obesity (BMI 30-39.9): Code(s): E66.9 - Obesity, unspecified Plan: Reinforced diet/exercise as tolerated/lose weight Plan Follow up in 3 months Orders: Orders Hemoglobin A1c 3 Months E11.9 - Type 2 diabetes mellitus without complications Comprehensive [place] Panel Fast 3 Months E78.00 - Pure hypercholesterolemia, unspecified Vitamin B12 and Folate 3 Months E53.8 - Deficiency of other specified B group vitamins Vitamin D 25-OH Total 3 Months E55.9 - Vitamin D deficiency, unspecified AMB Hemoglobin A1c Today Z13.9 - Encounter for screening, unspecified Lipid Panel 3 Months E78.00 - Pure hypercholesterolemia, unspecified Complete Blood Count Auto Diff 3 Months I10 - Essential (primary) hypertension Microalbumin, Random (w Creat) 3 Months E11.9 - Type 2 diabetes mellitus without complications TSH reflex Free T4 3 Months E78.00 - Pure hypercholesterolemia, unspecified UA CC w/rflx Micro + Cult 3 Months R30.0 - Dysuria Coding Level of Care Code Est Pt Level 4 (92418) Diagnoses Type 2 diabetes mellitus with other diabetic kidney complication E11.29 Proteinuria, unspecified type R80.9 Proteinuria type: unspecified Benign essential hypertension I10 Pure hypercholesterolemia E78.00 Lumbar degenerative disc disease M51.36 Vitamin D deficiency E55.9 Primary osteoarthritis of right shoulder M19.011 Primary insomnia F51.01 Insomnia type: primary Obesity (BMI 30-39.9) E66.9
== END 2023-02-10 13:13 | disposition home or self-care (01) ==
PROVIDERS: PCP Internal Medicine; Visit Provider Internal Medicine
DX: E11.29 Type 2 diabetes mellitus with other diabetic kidney complication (principal); R80.9 Proteinuria, unspecified; I10 Essential (primary) hypertension; E78.00 Pure hypercholesterolemia, unspecified; M51.36 Other intervertebral disc degeneration, lumbar region; E55.9 Vitamin D deficiency, unspecified; M19.011 Primary osteoarthritis, right shoulder; F51.01 Primary insomnia; E66.9 Obesity, unspecified
CPT/HCPCS: 83036; 99214

== ENCOUNTER 2023-04-19 12:57 | Outpatient (AMB) | payer OTHER, SELFPAY ==
--- NOTE | 2023-04-19 13:26 | MHC.PC.OV ---
Vital Signs 04/19/23 13:27 Height 5 ft 5 in Weight 181 lb BMI 30.1 BP 110/72 Blood Pressure Location Lt brachial Position Sitting Pulse 52 Pulse Source Pulse Oximeter Pulse Oximetry (%) 96 Oxygen Delivery Method Room Air Intake Visit Reasons: 3 month f/u Curriculum Assistant Principal Required: No Accompanied by: Self / Same As Patient Allergies No Known Allergies Allergy (Verified 04/19/23 14:09) Medication List - Last Reconciled 04/19/23 by Raymond Machuca MD acetaminophen (Tylenol) 650 mg (2 x 325 mg) PO Q6H PRN amlodipine 10 mg PO DAILY 90 days atenolol 50 mg PO DAILY 90 days atorvastatin 80 mg PO DAILY celecoxib (Celebrex) 200 mg PO BID 30 days cholecalciferol (vitamin D3) 50 mcg PO DAILY 90 days [diabetic shoe inserts As directed] [DIABETIC SHOES (1 pair) - size TBD based on patient As directed] diabetic supplies, miscellan. Diabetic shoes (1 pair) gabapentin 300 mg PO BID glipizide 10 mg PO BID hydralazine 25 mg PO BID hydrochlorothiazide 25 mg PO DAILY lidocaine 4% (Aspercreme (lidocaine)) 1 patch topical DAILY PRN losartan 100 mg PO DAILY metformin 1,000 mg PO BID omeprazole 20 mg PO DAILY PRN pioglitazone 30 mg PO DAILY 90 days Salonpas (lidocaine) 4% (lidocaine) 1 patch topical BID PRN NS tizanidine 4 mg PO Q8H PRN tizanidine 4 mg PO TID PRN trazodone 25 mg (1/2 x 50 mg) PO BEDTIME PRN Tobacco use date assessed: 04/19/23 Fall risk assessment: No Falls in past year Last assessed Fall Risk: 04/19/23 Dental Screening Dental Screen Date: 04/19/23 Did you have a dental visit in the last 12 months?: Yes Did you have a dental problem in the last 6 months where you did not have access to dental care?: No Was dental information given to patient?: Patient has dentist HPI 3 month f/u HPI Details Patient comes in today for his follow up visit States that he has been experiencing increased left shoulder pain for a few weeks now Does not recall any recent injury or trauma to his left shoulder Has also been experiencing frequent acid reflux/heartburn symptoms lately States that he feels okay otherwise He denies any headaches or dizziness Denies any chest pains, no shortness of breath No nausea/vomiting, no abdominal pain No change in bowel habits noted States that he currently no doctor to go see for his diabetes - he used to see Dr. Hairston but she moved her practice to [facility] last year and [place] is too far for patient to go to Would like to be referred to someone either here or in [place] Was also not able to get his previously ordered follow up labs done yet [facility], [facility] Medical History (Updated 04/21/23 @ 06:10 by Raymond Machuca MD) GERD without esophagitis Dermatitis Obesity (BMI 30-39.9) Insomnia Vitamin D deficiency Lumbar degenerative disc disease Complex regional pain syndrome type 2 of left upper extremity Primary osteoarthritis of right shoulder Benign essential hypertension Pure hypercholesterolemia Proteinuria, unspecified Type 2 diabetes mellitus with other diabetic kidney complication Hypercholesteremia Hypertension Diabetes type 2, controlled Surgical History History of colonoscopy Status post right rotator cuff repair Family History Mother CVD (cardiovascular disease) Father No problems noted. Social History Housing: Apartment Alcohol intake: current Alcohol intake frequency: a few times a month Alcohol type: beer Patient Tobacco Use Status: Former Tobacco user Tobacco use type: Cigarette e-Cigarette/Vaping Use: Never Used Second Hand Smoke Exposure: Yes service: No Current occupational status: retired Cognitive needs: No Hearing needs: No (Pt has an old pair of hearing aid. ) Vision needs: Yes Questionnaire PHQ-9 Over the last 2 weeks, how often have you been bothered by any of the following problems? 1. Little interest or pleasure in doing things: not at all 2. Feeling down, depressed, or hopeless: not at all 3. Trouble falling or staying asleep, or sleeping too much: nearly every day 4. Feeling tired or having little energy: not at all 5. Poor appetite or overeating: not at all 6. Feeling bad about yourself - or that you are a failure or have let yourself or your family down: not at all 7. Trouble concentrating on things, such as reading the newspaper or watching television: not at all 8. Moving or speaking so slowly that other people could have noticed. Or the opposite - being so fidgety or restless that you have been moving around a lot more than usual: not at all 9. Thoughts that you would be better off or of hurting yourself in some way: not at all Total score: 3 Depression Screening Interpretation: Negative Depression Screening Done: Yes 72716 - PHQ-9 Billing: Yes Source: Developed by Drs. Carmine Nguyen, Lee Ann Roblero, Jose An and colleagues, with an educational scout from [employer]. Thrive Questionnaire Date Thrive assessed: 04/19/23 I am a: Patient What is your living situation today?: I have a steady place to live Within the past 12 months, did the food you bought not last and you didn't have the money to get more?: Never true Within the past 12 months, did you worry whether your food would run out before you got money to buy more?: Never true Do you have trouble paying for medicines?: No Do you have trouble getting transportation to medical appointments?: No Do you have trouble paying your heating and electricity bill?: No Do you have trouble taking care of your child, family member or friend?: No Do you have trouble with day-to-day activities such as bathing, preparing meals, shopping, managing finances, etc.?: No Are you currently unemployed and looking for a job?: No Are you interested in more education?: No Please select the resources that you would like help with: None Currently or been in a relationship where the following occur: no concerns reported AUDIT C Alcohol Use Questionnaire (AUDIT-C) 1. How often do you have a drink containing alcohol?: Never 3. How often do you have six or more drinks on one occasion?: Never Total Score: 0 Score Reviewed/Action Taken: Yes AJCQUI-7 AMB Questionnaire JACQUI-7 Date JACQUI - 7 assessed: 04/19/23 Feeling nervous, anxious, or on edge: 0 = Not at all Not being able to stop or control worryin = Not at all Worrying too much about different things: 0 = Not at all Trouble relaxin = Not at all Being so restless that it is hard to sit still: 0 = Not at all Becoming easily annoyed or irritable: 0 = Not at all Feeling afraid as if something awful might happen: 0 = Not at all Total JACQUI-7 score (0-4 normal; 5-9 mild; 10-14 moderate; 15-21 severe): 0 Source: Developed by Drs. Carmine Nguyen, Lee Ann Roblero, Jose An and colleagues, with an educational scout from [employer]. Review of Systems Const Denies chills, Denies fatigue, Denies fever(s) and Denies headache(s) ENT Denies dysphagia, Denies dizziness, Denies otalgia, Denies headache(s), Denies odynophagia and Denies sore throat Card Denies chest pain, Denies palpitations and Denies dyspnea Resp Denies chest congestion, Denies cough and Denies dyspnea GI Denies abdominal pain, Denies constipation, Denies dysphagia, Reports heartburn (recurrent lately), Denies diarrhea, Denies nausea, Denies odynophagia and Denies vomiting Denies hematuria, Denies dysuria, Reports nocturia and Reports urinary frequency Musc Reports back pain (over the lower back - chronic; (+) left-sided low back pain lately) and Reports arthralgias (left shoulder - increasing lately) Skin/Breast Denies rash Neuro Denies dizziness and Denies headache(s) Endo Denies fatigue, Reports polydipsia, Reports polyuria and Denies palpitations Physical exam (Primary Care) Vital Signs: Last Vital Signs Pulse 52 04/19/23 13:27 BP 110/72 04/19/23 13:27 Pulse Ox 96 04/19/23 13:27 Oxygen Delivery Method Room Air 04/19/23 13:27 BMI result Body Mass Index 30.1 Tobacco/Smoking Status: Tobacco use Status Tobacco use date assessed 04/19/23 04/19/23 13:29 Patient Tobacco Use Status Former Tobacco user 04/19/23 13:29 Tobacco use type Cigarette 04/19/23 13:29 e-Cigarette/Vaping Use Never Used 04/19/23 13:29 PHQ-9: PHQ-9 Score PHQ-9: Total score 3 04/19/23 14:05 Depression Screening Interpretation: Negative Thrive Assessment: Date of Thrive Assessment Date Thrive assessed 12/13/23 12/13/23 13:29 Currently or been in a relationship where the following occur: no concerns reported Const General: no acute distress and alert HENMT Ears: TM's normal bilaterally and EAC's normal Throat: Yes posterior oropharynx normal and Yes tonsils normal (no TP congestion noted) Neck Neck: Yes no lymphadenopathy and Yes supple Resp Auscultation: clear to auscultation bilaterally, no rales and no wheezes Cardio Rate: regular rate Rhythm: regular rhythm Heart sounds: no murmurs GI Palpation (GI): Soft to palpation and nontender Auscultation: normal bowel sounds Back/Spine/Pelvis Thoracic/Lumbar Spine: straight leg raise negative bilaterally, paraspinal muscle tenderness on the left in the lower lumbar and lumbar spinal tenderness Skin Rashes: no rashes Extrem General: Yes no clubbing, cyanosis or edema Left upper extremity: shoulder/upper arm Details: tenderness Location: of the A-C joint; no swelling Assessment and Plan Assessment & Plan (1) Type 2 diabetes mellitus with other diabetic kidney complication: Code(s): E11.29 - Type 2 diabetes mellitus with other diabetic kidney complication Plan: In-office HgbA1c today is at 9.8% (was at 10.4% a few months ago) - goal is < 7.0% His HgbA1c readings over the past couple of years have been steadily going up HgbA1c readings: 01/21/21 = 7.1% 05/06/21 = 7.3% 07/30/21 = 8.8% 10/01/21 = 9.8% 01/12/22 = 8.3% 04/27/22 = 10.4% 08/03/22 = 11.1% 11/11/22 = 10.4% Reinforced diabetic diet Continue Metformin 1000 mg BID, Pioglitazone 30 mg QD and Glipizide 5 mg 2 tablets BID for now He has been advised that he should start taking some injectable medication for his diabetes as it looks like the oral meds alone are no longer enough to control his diabetes BUT patient remains adamant that he DOES NOT WANT TO TAKE ANY INJECTIONS, especially INSULIN He was following up with [facility] (Dr. Jovita Hairston) regularly in the past but has not seen her since April 2022 - states that Dr. Hairston moved her practice to [place] and he cannot follow her up to [place] due to transportation issues Have offered to refer him to endocrinology here at [facility] previously but he states that even coming here to [place] is a challenge for him He now agrees to go back to [facility] - referral done (2) Proteinuria, unspecified: Code(s): R80.9 - Proteinuria, unspecified Qualifiers: Proteinuria type: unspecified Qualified Code(s): R80.9 - Proteinuria, unspecified Plan: Will continue? to monitor his renal function regularly Reminded again that his proteinuria will continue to progress and get worse if his diabetes is not adequately controlled (3) Benign essential hypertension: Code(s): I10 - Essential (primary) hypertension Plan: Reinforced low-sodium diet -? goal is systolic BP of at least 130 to 140 mm or less Continue Losartan 100 mg QD, Hydrochlorothiazide 25 mg QD, Amlodipine 10 mg QD, Atenolol 100 mg QD and Hydralazine 25 mg BID (4) Pure hypercholesterolemia: Code(s): E78.00 - Pure hypercholesterolemia, unspecified Plan: He is advised to get his previously ordered labs done SADE Reinforced low cholesterol diet Continue Atorvastatin 80 mg QD (5) Vitamin D deficiency: Code(s): E55.9 - Vitamin D deficiency, unspecified Plan: Continue Vitamin D3 2000 units QD (6) GERD without esophagitis: Code(s): K21.9 - Gastro-esophageal reflux disease without esophagitis Plan: Dietary restrictions reinforced He used to take Omeprazole but has not had the Rx in a while Will start him back on Omeprazole 20 mg QD (7) Lumbar degenerative disc disease: Code(s): M51.36 - Other intervertebral disc degeneration, lumbar region Plan: Reinforced activity and weight lifting restrictions Abdominal / pelvic CT done a few months ago revealed (+) degenerative disc disease, with mild canal stenosis and moderate bilateral neural foraminal stenosis at L4-L5, with no acute fracture or subluxation Continue Percocet 5-325 mg 1 tablet every 6-8 hours as needed and Gabapentin 300 mg BID Follow up with [facility] as scheduled (8) Primary osteoarthritis of right shoulder: Code(s): M19.011 - Primary osteoarthritis, right shoulder Plan: S/P right rotator cuff repair with some improvement of his symptoms MRI of the right shoulder done last year showed (+)? tendinosis, large subacromial spur, OA changes as well as a posterior labral tear in the shoulder Follow-up with Orthopedics as scheduled (9) Left shoulder pain: Code(s): M25.512 - Pain in left shoulder Qualifiers: Chronicity: unspecified Qualified Code(s): M25.512 - Pain in left shoulder Plan: Will send him for x-rays of his left shoulder SADE for further evaluation (10) Insomnia: Code(s): G47.00 - Insomnia, unspecified Qualifiers: Insomnia type: primary Qualified Code(s): F51.01 - Primary insomnia Plan: Sleep hygiene reinforced Continue Trazodone 50 mg once a day as needed (11) Obesity (BMI 30-39.9): Code(s): E66.9 - Obesity, unspecified Plan: Reinforced diet/exercise as tolerated/lose weight Plan Follow up in 2 months Orders: Orders XR shoulder LT min 2V 04/20/ M25.512 - Pain in left shoulder Medications: Changed From omeprazole 20 mg PO DAILY@0630 PRN Acid Reflux To omeprazole 20 mg PO DAILY PRN 30 caps 3RF Acid Reflux Coding Level of Care Code Est Pt Level 4 (74724) Diagnoses Type 2 diabetes mellitus with other diabetic kidney complication E11.29 Proteinuria, unspecified type R80.9 Proteinuria type: unspecified Benign essential hypertension I10 Pure hypercholesterolemia E78.00 Vitamin D deficiency E55.9 GERD without esophagitis K21.9 Lumbar degenerative disc disease M51.36 Primary osteoarthritis of right shoulder M19.011 Left shoulder pain, unspecified chronicity M25.512 Chronicity: unspecified Primary insomnia F51.01 Insomnia type: primary Obesity (BMI 30-39.9) E66.9
[2023-04-19 13:27] VITALS: BP 110/72; PULSE 52; O2SAT 96; BMI 30.1
== END 2023-04-19 14:13 | disposition home or self-care (01) ==
PROVIDERS: PCP Internal Medicine; Visit Provider Internal Medicine
DX: E11.29 Type 2 diabetes mellitus with other diabetic kidney complication (principal); R80.9 Proteinuria, unspecified; I10 Essential (primary) hypertension; E78.00 Pure hypercholesterolemia, unspecified; Z68.30 Body mass index [BMI] 30.0-30.9, adult; E55.9 Vitamin D deficiency, unspecified; K21.9 Gastro-esophageal reflux disease without esophagitis; M51.36 Other intervertebral disc degeneration, lumbar region; M19.011 Primary osteoarthritis, right shoulder; M25.512 Pain in left shoulder; F51.01 Primary insomnia; E66.9 Obesity, unspecified
CPT/HCPCS: 99214

== ENCOUNTER 2023-04-20 10:55 | Outpatient (REF) | payer OTHER, SELFPAY ==
--- NOTE | ~2023-04-20 | XR_ITS ---
EXAMINATION: XR SHOULDER, LEFT CLINICAL INFORMATION: Pain in left shoulder COMPARISON: X-ray the left shoulder April 2013 TECHNIQUE: AP external rotation, Grashey, scapular Y, and axillary views of the left shoulder. FINDINGS: The area of calcific/ossific density adjacent/cephalad to the greater tuberosity is increased in size and conspicuity compared with the prior examination now measuring 13 mm transverse previously measuring 6 mm transverse. Acromioclavicular joint mild osteoarthritis. Glenohumeral joint: Normal. Additional surrounding bone and soft tissues unremarkable. XR/XR shoulder LT min 2V IMPRESSION: Calcific/ossific density adjacent to the greater tuberosity is increased in size and conspicuity compared with the prior examination. The appearance is most compatible with calcific tendinitis/calcific tendinosis
== END 2023-04-20 10:56 | disposition home or self-care (01) ==
LOC: HO.XRAY 10:55
PROVIDERS: PCP Internal Medicine; Visit Provider Internal Medicine
DX: M25.512 Pain in left shoulder (principal)
CPT/HCPCS: 73030

== ENCOUNTER 2023-05-29 08:43 | Outpatient (REF) | payer OTHER, SELFPAY ==
[2023-05-29 09:09] LABS: MANUAL DIFF FLAG NO
[2023-05-29 09:38] LABS: Basophils Absolute Auto 0.1 X10*3/uL (0.0-0.2); Basophils Percent Auto 1.4 % (0-2); Eosinophils Absolute Auto 0.9 X10*3/uL (0.0-0.4); Eosinophils Percent Auto 10.6 % (0-4); Hematocrit 46.7 % (42.0-52.0); Hemoglobin 15.8 g/dl (14.0-18.0); Imm Gran Abs Auto 0.03 X10*3/uL (0.00-0.03); Imm Gran Pct Auto 0.3 % (0.0-0.4); Lymphocytes Absolute Auto 2.1 X10*3/uL (1.2-4.9); Mean Corpuscular HGB Conc 33.8 g/dl (31.0-36.0); Mean Corpuscular Hemoglobin 29.2 pg (27.0-33.0); Mean Corpuscular Volume 86.2 fL (80.0-98.0); Mean Platelet Volume 9.9 fL (9.4-12.4); Monocytes Absolute Auto 0.7 X10*3/uL (0.1-1.2); Monocytes Percent Auto 7.7 % (2-11); Neutrophils Absolute Auto 4.9 x10*3/uL (2.0-8.3); Platelet Count 257 X10*3/uL (160-400); Red Blood Count 5.42 X10*6/uL (4.60-5.80); Red Cell Distribution Width 12.3 % (11.0-16.0); White Blood Count 8.7 X10*3/uL (4.8-10.8)
[2023-05-29 10:03] LABS: Estimated Average Glucose 260 mg/dL; Hemoglobin A1c % 10.7 % (<6.0)
[2023-05-29 10:49] LABS: Alanine Aminotransferase 21 U/L (0-40); Albumin Level 4.2 g/dL (3.5-5.0); Alkaline Phosphatase 87 U/L (39-117); Anion Gap 11 (12-20); Aspartate Amino Transferase 20 U/L (5-37); Bilirubin Total 0.6 mg/dL (0.0-1.0); Blood Urea Nitrogen 16 mg/dL (9-16); Calcium 10.2 mg/dL (8.4-10.2); Carbon Dioxide 29 mmol/L (22-29); Chloride 100 mmol/L (96-108); Cholesterol 125 mg/dL (<200); Estimated Glomerular Filt Rate 58; Glucose Fasting 269 mg/dL (60-99); HDL Cholesterol 56 mg/dL (>40); LDL Cholesterol Calculated 54 mg/dL (<100); Potassium 4.3 mmol/L (3.3-5.1); Sodium 136 mmol/L (135-145); Total Protein 7.4 g/dL (6.5-8.0); Triglycerides 77 mg/dL (<150)
[2023-05-29 11:06] LABS: TSH reflex Free T4 1.59 uIU/mL (0.32-4.0); Vitamin D 25-OH Total 35.3 ng/mL (>30)
[2023-05-29 11:29] LABS: Folate 7.9 ng/mL (> or = 4.0)
[2023-05-29 11:34] LABS: Vitamin B12 919 pg/mL (200-900)
[2023-05-29 12:53] LABS: Appearance Urine Turbid; Color Urine Yellow; Glucose Urine UA 250 mg/dL (Negative); Leukocyte Esterase Urine Negative (Negative); Nitrite Urine Negative (Negative); PH 5.5 (5.0-9.0); Specific Gravity - Urine 1.025 (1.005-1.025); UMIC TRIGGER UACC YES; Urine Blood Negative (Negative); Urine Ketones Negative (Negative); Urine Protein 100 (2+) mg/dL (Neg-Trace)
[2023-05-29 13:13] LABS: Bacteria Urine None Seen (None Seen); Calcium Oxalate Crystals Urine Present; RBC Urine 0-2 /HPF (0-2); Squamous Epithelial Cell Urine 0-2 /HPF (0-2); WBC Urine 0-5 /HPF (0-5)
[2023-05-29 14:27] LABS: Creatinine Urine 244.43 mg/dL
[2023-05-29 14:43] LABS: Microalbum/Creatinine Ratio Ur 394.7 ug/mg cr (<30)
== END 2023-05-29 08:44 | disposition home or self-care (01) ==
LOC: HO.LAB 08:43
PROVIDERS: PCP Internal Medicine; Visit Provider Internal Medicine
DX: E78.00 Pure hypercholesterolemia, unspecified (principal); E53.8 Deficiency of other specified B group vitamins; E55.9 Vitamin D deficiency, unspecified; I10 Essential (primary) hypertension; E11.9 Type 2 diabetes mellitus without complications
CPT/HCPCS: 36415; 80053; 80061; 81001; 82043; 82306; 82570; 82607; 82746; 83036; 84443; 85025

== ENCOUNTER 2023-06-19 13:12 | Outpatient (AMB) | payer OTHER, SELFPAY ==
[2023-06-19 13:31] VITALS: BP 128/80; PULSE 64; O2SAT 97; BMI 30.3
--- NOTE | 2023-06-19 13:31 | A.OFFPC_ITS ---
Vital Signs 06/19/23 13:31 Height 5 ft 5 in Weight 182 lb 4 oz BMI 30.3 BP 128/80 Blood Pressure Location Lt brachial Position Sitting Pulse 64 Pulse Source Pulse Oximeter Pulse Oximetry (%) 97 Oxygen Delivery Method Room Air Intake Visit Reasons: 2 month f/u Hop Strainer Required: No Accompanied by: Self / Same As Patient Allergies No Known Allergies Allergy (Verified 07/19/23 15:17) Medication List - Last Reconciled 06/19/23 by Raymond Machuca MD acetaminophen (Tylenol) 650 mg (2 x 325 mg) PO Q6H PRN amlodipine 10 mg PO DAILY 90 days atenolol 50 mg PO DAILY 90 days atorvastatin 80 mg PO DAILY celecoxib (Celebrex) 200 mg PO BID 30 days cholecalciferol (vitamin D3) 50 mcg PO DAILY 90 days [diabetic shoe inserts As directed] [DIABETIC SHOES (1 pair) - size TBD based on patient As directed] diabetic supplies, miscellan. Diabetic shoes (1 pair) gabapentin 300 mg PO BID glipizide 10 mg PO BID hydralazine 25 mg PO BID hydrochlorothiazide 25 mg PO DAILY lidocaine 4% (Aspercreme (lidocaine)) 1 patch topical DAILY PRN losartan 100 mg PO DAILY metformin 1,000 mg PO BID omeprazole 20 mg PO DAILY PRN pioglitazone 30 mg PO DAILY 90 days Salonpas (lidocaine) 4% (lidocaine) 1 patch topical BID PRN NS tizanidine 4 mg PO TID PRN tizanidine 4 mg PO Q8H PRN trazodone 25 mg (1/2 x 50 mg) PO BEDTIME PRN Tobacco use date assessed: 06/19/23 Fall risk assessment: No Falls in past year Last assessed Fall Risk: 06/19/23 Dental Screening Dental Screen Date: 06/19/23 Did you have a dental visit in the last 12 months?: Yes Did you have a dental problem in the last 6 months where you did not have access to dental care?: No Was dental information given to patient?: Patient has dentist HPI 2 month f/u HPI Details Patient comes in today for his follow up visit States that he feels okay He denies any headaches or dizziness Denies any chest pains, no SOB No nausea/vomiting, no abdominal pain No change in bowel habits noted Had his follow up labs done about 3 weeks ago - to discuss his results [facility] Medical History (Updated 06/19/23 @ 15:05 by Raymond Machuca MD) GERD without esophagitis Dermatitis Obesity (BMI 30-39.9) Insomnia Vitamin D deficiency Lumbar degenerative disc disease Complex regional pain syndrome type 2 of left upper extremity Primary osteoarthritis of right shoulder Benign essential hypertension Pure hypercholesterolemia Proteinuria, unspecified Type 2 diabetes mellitus with other diabetic kidney complication Hypercholesteremia Hypertension Diabetes type 2, controlled Surgical History History of colonoscopy Status post right rotator cuff repair Family History Mother CVD (cardiovascular disease) Father No problems noted. Social History Housing: Apartment Alcohol intake: current Alcohol intake frequency: a few times a month Alcohol type: beer Patient Tobacco Use Status: Former Tobacco user Tobacco use type: Cigarette e-Cigarette/Vaping Use: Never Used Second Hand Smoke Exposure: Yes service: No Current occupational status: retired Cognitive needs: No Hearing needs: No (Pt has an old pair of hearing aid. ) Vision needs: Yes Questionnaire PHQ-9 Over the last 2 weeks, how often have you been bothered by any of the following problems? 1. Little interest or pleasure in doing things: not at all 2. Feeling down, depressed, or hopeless: not at all 3. Trouble falling or staying asleep, or sleeping too much: nearly every day 4. Feeling tired or having little energy: not at all 5. Poor appetite or overeating: not at all 6. Feeling bad about yourself - or that you are a failure or have let yourself or your family down: not at all 7. Trouble concentrating on things, such as reading the newspaper or watching television: not at all 8. Moving or speaking so slowly that other people could have noticed. Or the opposite - being so fidgety or restless that you have been moving around a lot more than usual: not at all 9. Thoughts that you would be better off or of hurting yourself in some way: not at all Total score: 3 Depression Screening Interpretation: Negative Depression Screening Done: Yes [id number] - PHQ-9 Billing: Yes Source: Developed by Drs. Carmine Nguyen, Jose Polanco and colleagues, with an educational scout from [employer]. Thrive Questionnaire Date Thrive assessed: 06/19/23 I am a: Patient What is your living situation today?: I have a steady place to live Within the past 12 months, did the food you bought not last and you didn't have the money to get more?: Never true Within the past 12 months, did you worry whether your food would run out before you got money to buy more?: Never true Do you have trouble paying for medicines?: No Do you have trouble getting transportation to medical appointments?: No Do you have trouble paying your heating and electricity bill?: No Do you have trouble taking care of your child, family member or friend?: No Do you have trouble with day-to-day activities such as bathing, preparing meals, shopping, managing finances, etc.?: No Are you currently unemployed and looking for a job?: No Are you interested in more education?: No Please select the resources that you would like help with: None Currently or been in a relationship where the following occur: no concerns reported THRIVE Score: 0 AUDIT C Alcohol Use Questionnaire (AUDIT-C) 1. How often do you have a drink containing alcohol?: Never 3. How often do you have six or more drinks on one occasion?: Never Total Score: 0 Score Reviewed/Action Taken: Yes JACQUI-7 AMB Questionnaire JACQUI-7 Date JACQUI - 7 assessed: 06/19/23 Feeling nervous, anxious, or on edge: 0 = Not at all Not being able to stop or control worryin = Not at all Worrying too much about different things: 0 = Not at all Trouble relaxin = Not at all Being so restless that it is hard to sit still: 0 = Not at all Becoming easily annoyed or irritable: 0 = Not at all Feeling afraid as if something awful might happen: 0 = Not at all Total JACQUI-7 score (0-4 normal; 5-9 mild; 10-14 moderate; 15-21 severe): 0 Source: Developed by Lee Ann Ferreira Kurt Kroenke and colleagues, with an educational scout from [employer]. Review of Systems Const Denies chills, Denies fatigue, Denies fever(s) and Denies headache(s) ENT Denies dysphagia, Denies dizziness, Denies otalgia, Denies headache(s), Denies neck pain, Denies odynophagia and Denies sore throat Card Denies chest pain, Denies palpitations and Denies dyspnea Resp Denies chest congestion, Denies cough and Denies dyspnea GI Denies abdominal pain, Denies constipation, Denies dysphagia, Denies heartburn, Denies diarrhea, Denies nausea, Denies odynophagia and Denies vomiting Denies hematuria, Denies dysuria, Reports nocturia and Reports urinary frequency Musc Reports back pain (over the lower back - chronic; (+) left-sided low back pain lately), Reports arthralgias (left shoulder - increasing lately) and Denies neck pain Skin/Breast Denies rash Neuro Denies dizziness and Denies headache(s) Endo Denies fatigue, Reports polydipsia, Reports polyuria and Denies palpitations Physical exam (Primary Care) Vital Signs: Last Vital Signs Pulse 64 06/19/23 13:31 BP 128/80 06/19/23 13:31 Pulse Ox 97 06/19/23 13:31 Oxygen Delivery Method Room Air 06/19/23 13:31 BMI result Body Mass Index 30.3 Tobacco/Smoking Status: Tobacco use Status Tobacco use date assessed 06/19/23 06/19/23 13:32 Patient Tobacco Use Status Former Tobacco user 06/19/23 13:32 Tobacco use type Cigarette 06/19/23 13:32 e-Cigarette/Vaping Use Never Used 06/19/23 13:32 PHQ-9: PHQ-9 Score PHQ-9: Total score 3 06/19/23 15:07 Depression Screening Interpretation: Negative Thrive Assessment: Date of Thrive Assessment Date Thrive assessed 06/19/23 06/19/23 13:32 Currently or been in a relationship where the following occur: no concerns reported Const General: no acute distress and alert HENMT Ears: TM's normal bilaterally and EAC's normal Throat: Yes posterior oropharynx normal and Yes tonsils normal (no TP congestion noted) Neck Neck: Yes no lymphadenopathy and Yes supple Resp Auscultation: clear to auscultation bilaterally, no rales and no wheezes Cardio Rate: regular rate Rhythm: regular rhythm Heart sounds: no murmurs GI Palpation (GI): Soft to palpation and nontender Auscultation: normal bowel sounds Back/Spine/Pelvis Thoracic/Lumbar Spine: lumbar spinal tenderness Skin Rashes: no rashes Extrem General: Yes no clubbing, cyanosis or edema Left upper extremity: shoulder/upper arm Details: tenderness Location: of the A- C joint; no swelling Results Reviewed Results Reviewed: Laboratory Tests 11/11/22 01/19/23 01/19/23 13:40 20:19 20:19 WBC 7.1 Hgb 14.8 Hct 43.7 Plt Count 187 Sodium 140 Potassium 4.4 Creatinine 1.25 Estimated GFR 56 Random Glucose 191 H Fasting Glucose Hgb A1c (Clinic) 10.4 H Hemoglobin A1c % Calcium 10.2 D AST 23 ALT 20 Triglycerides Cholesterol LDL Cholesterol, Calc HDL Cholesterol Vitamin B12 25-OH Vitamin D Total Folate TSH Ur Specific [place] Urine Protein Urine Glucose (UA) Urine Blood Urine Nitrite Ur Leukocyte Esterase Microalb/Creat Ratio 01/19/23 05/29/23 05/29/23 20:23 09:08 09:08 WBC 8.7 Hgb 15.8 Hct 46.7 Plt Count 257 D Sodium 136 Potassium 4.3 Creatinine 1.23 Estimated GFR 58 Random Glucose Fasting Glucose 269 H Hgb A1c (Clinic) Hemoglobin A1c % 10.7 H Calcium 10.2 AST 20 ALT Triglycerides 77 Cholesterol 125 LDL Cholesterol, Calc 54 HDL Cholesterol 56 Vitamin B12 919 H 25-OH Vitamin D Total 35.3 Folate 7.9 TSH 1.59 Ur Specific [place] 1.025 Urine Protein 100 (2+) H Urine Glucose (UA) >=1000 H Urine Blood Negative Urine Nitrite Ur Leukocyte Esterase Microalb/Creat Ratio 05/29/23 05/29/23 05/29/23 09:08 11:03 11:03 WBC Hgb Hct Plt Count Sodium Potassium Creatinine Estimated GFR Random Glucose Fasting Glucose Hgb A1c (Clinic) Hemoglobin A1c % Calcium AST ALT 21 Triglycerides Cholesterol LDL Cholesterol, Calc HDL Cholesterol Vitamin B12 25-OH Vitamin D Total Folate TSH Ur Specific [place] 1.025 Urine Protein 100 (2+) H Urine Glucose (UA) 250 H Urine Blood Negative Urine Nitrite Negative Ur Leukocyte Esterase Negative Microalb/Creat Ratio 394.7 H Assessment and Plan Assessment & Plan (1) Type 2 diabetes mellitus with other diabetic kidney complication: Code(s): E11.29 - Type 2 diabetes mellitus with other diabetic kidney complication Plan: HgbA1c was at 10.4% on his follow up labs done 3 weeks ago (in-office HgbA1c was previously at 9.8% a few months ago) - goal is < 7.0% Reinforced diabetic diet Continue Metformin 1000 mg BID and Pioglitazone 30 mg QD; he was also supposed to be on Glipizide 5 mg 2 tablets BID but was apparently advised by his pharmacist that it is not approved Patient remains adamant about NOT WANTING TO TAKE ANY Rx INJECTIONS, especially INSULIN He was following up with [facility] (Dr. Jovita Hairston) regularly in the past but has not seen her since April 2022 - states that Dr. Hairston moved her practice to [place] and he cannot follow her up to [place] due to transportation issues Have offered to refer him to endocrinology here at [facility] previously but he states that even coming here to [place] is a challenge for him He finally agreed to go back to [facility] and a referral to them was done at his last visit - he is currently still waiting for them to schedule him for his appointment In the meantime, will have patient continue on his Metformin 1000 mg BID and Pioglitazone 30 mg QD and will try starting him additionally on Jardiance 25 mg Q AM (2) Proteinuria, unspecified: Code(s): R80.9 - Proteinuria, unspecified Qualifiers: Proteinuria type: unspecified Qualified Code(s): R80.9 - Proteinuria, unspecified Plan: Will continue? to monitor his renal function regularly Reminded again that his proteinuria will continue to progress and get worse if his diabetes is not adequately controlled (3) Benign essential hypertension: Code(s): I10 - Essential (primary) hypertension Plan: Reinforced low-sodium diet -? goal is systolic BP of at least 130 to 140 mm or less Continue Losartan 100 mg QD, Hydrochlorothiazide 25 mg QD, Amlodipine 10 mg QD, Atenolol 50 mg QD and Hydralazine 25 mg BID (4) Pure hypercholesterolemia: Code(s): E78.00 - Pure hypercholesterolemia, unspecified Plan: Results of his labs done a few weeks ago reviewed and discussed with patient Reinforced low cholesterol diet Continue Atorvastatin 80 mg QD Will recheck his labs and fasting lipids in 3 months for follow up (5) Vitamin D deficiency: Code(s): E55.9 - Vitamin D deficiency, unspecified Plan: Continue Vitamin D3 2000 units QD (6) GERD without esophagitis: Code(s): K21.9 - Gastro-esophageal reflux disease without esophagitis Plan: Dietary restrictions reinforced Continue Omeprazole 20 mg QD (7) Lumbar degenerative disc disease: Code(s): M51.36 - Other intervertebral disc degeneration, lumbar region Plan: Reinforced activity and weight lifting restrictions Abdominal / pelvic CT done a few months ago revealed (+) degenerative disc disease, with mild canal stenosis and moderate bilateral neural foraminal stenosis at L4-L5, with no acute fracture or subluxation Continue Percocet 5-325 mg 1 tablet every 6-8 hours as needed and Gabapentin 300 mg BID Follow up with [facility] as scheduled (8) Primary osteoarthritis of right shoulder: Code(s): M19.011 - Primary osteoarthritis, right shoulder Plan: S/P right rotator cuff repair with some improvement of his symptoms MRI of the right shoulder done last year showed (+)? tendinosis, large subacromial spur, OA changes as well as a posterior labral tear in the shoulder Follow-up with Orthopedics as scheduled (9) Left shoulder pain: Code(s): M25.512 - Pain in left shoulder Qualifiers: Chronicity: unspecified Qualified Code(s): M25.512 - Pain in left shoulder Plan: X-rays of the left shoulder done back in April 2023 revealed (+) calcific tendinitis of the shoulder Will refer him to orthopedics for further management and for consideration for cortisone injection, which patient is requesting for preferably (10) Insomnia: Code(s): G47.00 - Insomnia, unspecified Qualifiers: Insomnia type: primary Qualified Code(s): F51.01 - Primary insomnia Plan: Sleep hygiene reinforced Continue Trazodone 50 mg once a day as needed (11) Obesity (BMI 30-39.9): Code(s): E66.9 - Obesity, unspecified Plan: Reinforced diet/exercise as tolerated/lose weight Plan Follow up in 3 months Orders: Orders Comprehensive [place]. Panel Fast 3 Months E78.00 - Pure hypercholesterolemia, unspecified Hemoglobin A1c 3 Months E11.9 - Type 2 diabetes mellitus without complications Lipid Panel 3 Months E78.00 - Pure hypercholesterolemia, unspecified Referrals Orthopedics Referral M75.32 - Calcific tendinitis of left shoulder Medications: New empagliflozin (Jardiance) 25 mg PO QAM 90 tabs 1RF 90 days Coding Level of Care Code Est Pt Level 4 (43498) Diagnoses Type 2 diabetes mellitus with other diabetic kidney complication E11.29 Proteinuria, unspecified type R80.9 Proteinuria type: unspecified Benign essential hypertension I10 Pure hypercholesterolemia E78.00 Vitamin D deficiency E55.9 GERD without esophagitis K21.9 Lumbar degenerative disc disease M51.36 Primary osteoarthritis of right shoulder M19.011 Left shoulder pain, unspecified chronicity M25.512 Chronicity: unspecified Primary insomnia F51.01 Insomnia type: primary Obesity (BMI 30-39.9) E66.9
== END 2023-06-19 15:17 | disposition home or self-care (01) ==
PROVIDERS: PCP Internal Medicine; Visit Provider Internal Medicine
DX: E11.29 Type 2 diabetes mellitus with other diabetic kidney complication (principal); R80.9 Proteinuria, unspecified; E66.9 Obesity, unspecified; Z68.30 Body mass index [BMI] 30.0-30.9, adult; I10 Essential (primary) hypertension; E78.00 Pure hypercholesterolemia, unspecified; E55.9 Vitamin D deficiency, unspecified; K21.9 Gastro-esophageal reflux disease without esophagitis; M51.36 Other intervertebral disc degeneration, lumbar region; M19.011 Primary osteoarthritis, right shoulder; M25.512 Pain in left shoulder; F51.01 Primary insomnia
CPT/HCPCS: 99214

== ENCOUNTER 2023-07-19 14:44 | Outpatient (AMB) | payer OTHER, SELFPAY ==
--- NOTE | 2023-07-19 15:13 | A.OFFVIS_ITS ---
Intake Vital Signs 07/19/23 15:19 Height 5 ft 5 in Weight 182 lb BMI 30.3 Handedness Left Intake Visit Reasons: New Prob-Calcific tendinitis of left shoulder Intake Note: Benito is a 73 year old left hand dominant male who presents today for a evaluation of his left shoulder pain. Hx of right RTC repair 01/15/20. Patient states that his pain has been going on for 2 months , with no hx of injury. He states that his pain is worse at night since he is a side sleeper. ROM is limited. No hx of Treatment. Allergies No Known Allergies Allergy (Verified 07/19/23 15:17) HPI New Prob-Calcific tendinitis of left shoulder HPI Details 73-year-old left hand dominant male who presents to the office today for evaluation of left shoulder pain for about 2 months. He states he has pain and limited ROM in his left shoulder which is aggravated at night as he sleeps on his sides. He also c/o trouble lifting his arms or put on his socks due to weakness and constantly drops items. He is taking Celebrex which does not provide him any relief. He has not had any previous treatment. He has a history of RTC repair on 01/15/20. He has a history of diabetes. [facility] Medical History (Updated 06/19/23 @ 15:05 by Raymond Machuca MD) GERD without esophagitis Dermatitis Obesity (BMI 30-39.9) Insomnia Vitamin D deficiency Lumbar degenerative disc disease Complex regional pain syndrome type 2 of left upper extremity Primary osteoarthritis of right shoulder Benign essential hypertension Pure hypercholesterolemia Proteinuria, unspecified Type 2 diabetes mellitus with other diabetic kidney complication Hypercholesteremia Hypertension Diabetes type 2, controlled Surgical History History of colonoscopy Status post right rotator cuff repair Family History Mother CVD (cardiovascular disease) Father No problems noted. Social History Housing: Apartment Alcohol intake: current Alcohol intake frequency: a few times a month Alcohol type: beer Patient Tobacco Use Status: Former Tobacco user Tobacco use type: Cigarette e-Cigarette/Vaping Use: Never Used Second Hand Smoke Exposure: Yes service: No Current occupational status: retired Cognitive needs: No Hearing needs: No (Pt has an old pair of hearing aid. ) Vision needs: Yes Review of Systems Const All systems reviewed & are unremarkable except as noted in HPI and below Physical Exam Vital Signs: BMI result Body Mass Index 30.3 Const General: cooperative and no acute distress Orientation/consciousness: patient oriented x3 Resp Effort & Inspection: normal respiratory effort and able to speak in complete sentences Cardio Peripheral pulses: Peripheral pulses 2+ throughout Neuro General: patient oriented x3 Extrem Other: Left shoulder normal to inspection. Tenderness over the bicipital groove and sree ng the deltoid region of the shoulder. Forward flexion to 175, external rotation to 90, internal rotation to S1. Significant weakness with RTC strength testing. Negative [place] and cross body abduction. NVI. Assessment & Plan Assessment & Plan (1) Calcific tendinitis of left shoulder: Code(s): M75.32 - Calcific tendinitis of left shoulder Plan We discussed options which include steroid injection however his sugar levels has been high and he is not sure what his sugar levels are today we are going to defer the injection today. An MRI of the left shoulder was also ordered to further evaluate the integrity of the RTC. I will see him back once the MRI is complete. Orders: Orders MR shoulder LT wo con 07/19/23 S46.009A - Unspecified injury of muscle(s) and tendon(s) of the rotator cuff of unspecified shoulder, initial encounter Patient Instructions: Scribed for Julio Olson PA-C, by Alejandro Chan medical technical writer, on 07/19/2023 at 3:15 PM BESSIE. Julio Martinez PA-C, have personally reviewed and agree with the information entered by the scribe. Coding Level of Care Code Est Pt Level 3 (70901) Diagnoses Calcific tendinitis of left shoulder M75.32
[2023-07-19 15:19] VITALS: BMI 30.3
== END 2023-07-19 16:31 | disposition home or self-care (01) ==
LOC: HO.HOS 14:44
PROVIDERS: PCP Internal Medicine; Visit Provider Physician Assistant
DX: M75.32 Calcific tendinitis of left shoulder (principal)
CPT/HCPCS: 99213

== ENCOUNTER → 2023-07-19 14:44 | Outpatient (BNVA) | payer OTHER, SELFPAY | PROVIDERS: PCP Internal Medicine; Visit Provider Physician Assistant | DX: M75.32 Calcific tendinitis of left shoulder (principal) | CPT/HCPCS: 99212 ==

== ENCOUNTER 2023-07-24 07:32 | Outpatient (REF) | payer OTHER, SELFPAY ==
[2023-07-24 08:03] LABS: Appearance Urine Clear; Color Urine Yellow; Glucose Urine UA >=1000 mg/dL (Negative); Leukocyte Esterase Urine Negative (Negative); Nitrite Urine Negative (Negative); Specific Gravity - Urine >= 1.030 (1.005-1.025); UMIC TRIGGER UACC YES; Urine Blood Negative (Negative); Urine Ketones Negative (Negative); Urine Protein 30 (1+) mg/dL (Neg-Trace)
[2023-07-24 08:06] LABS: Bacteria Urine None Seen (None Seen); Hyaline Casts Urine 0-2 /LPF (0-2); RBC Urine 0-2 /HPF (0-2); Squamous Epithelial Cell Urine 0-2 /HPF (0-2); WBC Urine 0-5 /HPF (0-5)
== END 2023-07-24 07:33 | disposition home or self-care (01) ==
LOC: HO.LAB 07:32
PROVIDERS: PCP Internal Medicine; Visit Provider Internal Medicine
DX: R30.0 Dysuria (principal)
CPT/HCPCS: 81001; 81003

== ENCOUNTER 2023-10-06 09:11 | Outpatient (AMB) | payer OTHER, SELFPAY ==
[2023-10-06 09:14] VITALS: BP 114/60; PULSE 72; O2SAT 98; BMI 28.6
--- NOTE | 2023-10-06 09:14 | MHC.PC.OV ---
Vital Signs 10/06/23 09:14 Height 5 ft 5 in Weight 172 lb BMI 28.6 BP 114/60 Blood Pressure Location Lt brachial Position Sitting Pulse 72 Pulse Source Pulse Oximeter Pulse Oximetry (%) 98 Oxygen Delivery Method Room Air Intake Visit Reasons: 3mth f/u- see comments Paper Finisher Required: No Past Due Accounts Clerk: Not Required per policy Accompanied by: Self / Same As Patient Allergies No Known Allergies Allergy (Verified 10/06/23 09:45) Medication List - Last Reconciled 10/06/23 by Raymond Machuca MD acetaminophen (Tylenol) 650 mg (2 x 325 mg) PO Q6H PRN amlodipine 10 mg PO DAILY 90 days atenolol 50 mg PO DAILY 90 days atorvastatin 80 mg PO DAILY celecoxib 200 mg PO BID cholecalciferol (vitamin D3) 50 mcg PO DAILY 90 days [diabetic shoe inserts As directed] [DIABETIC SHOES (1 pair) - size TBD based on patient As directed] diabetic supplies, miscellan. Diabetic shoes (1 pair) empagliflozin (Jardiance) 25 mg PO QAM 90 days gabapentin 300 mg PO BID glipizide 5 mg PO BID hydralazine 25 mg PO BID hydrochlorothiazide 25 mg PO DAILY lidocaine 4% (Aspercreme (lidocaine)) 1 patch topical DAILY PRN losartan 100 mg PO DAILY metformin 1,000 mg PO BID omeprazole 20 mg PO DAILY PRN pioglitazone 30 mg PO DAILY 90 days Salonpas (lidocaine) 4% (lidocaine) 1 patch topical BID PRN NS tizanidine 4 mg PO Q8H PRN tizanidine 4 mg PO TID PRN trazodone 25 mg (1/2 x 50 mg) PO BEDTIME PRN Tobacco use date assessed: 06/19/23 Fall risk assessment: 1 Fall in past year Last assessed Fall Risk: 10/06/23 Dental Screening Dental Screen Date: 06/19/23 HPI 3mth f/u- see comments HPI Details Patient comes in today for his follow up visit States that he feels okay He denies any headaches or dizziness Denies any chest pains, no SOB No nausea/vomiting, no abdominal pain No change in bowel habits noted He did not get his follow up labs done recently - states that he called up a few days ago to ask if he had any labs ordered to be done for this appt and was supposedly advised that there were no labs ordered (even though they are clearly visible in his order queue) Relates that he received a cortisone injection into his left shoulder a couple of days ago and since then, he feels that he has been walking funny and his right leg feels weak and unsteady Adds that he used to see Dr. Hairston for his diabetes but is now seeing another doctor at [facility] and he was recently started back on Glipizide BID - is not sure about his dose but thinks it is the 5 mg tablets [facility] Medical History GERD without esophagitis Dermatitis Obesity (BMI 30-39.9) Insomnia Vitamin D deficiency Lumbar degenerative disc disease Complex regional pain syndrome type 2 of left upper extremity Primary osteoarthritis of right shoulder Benign essential hypertension Pure hypercholesterolemia Proteinuria, unspecified Type 2 diabetes mellitus with other diabetic kidney complication Hypercholesteremia Hypertension Diabetes type 2, controlled Surgical History History of colonoscopy Status post right rotator cuff repair Family History Mother CVD (cardiovascular disease) Father No problems noted. Social History Housing: Apartment Alcohol intake: current Alcohol intake frequency: a few times a month Alcohol type: beer Patient Tobacco Use Status: Former Tobacco user Tobacco use type: Cigarette e-Cigarette/Vaping Use: Never Used Second Hand Smoke Exposure: Yes service: No Current occupational status: retired Cognitive needs: Yes (cane) Hearing needs: No (Pt has an old pair of hearing aid. ) Vision needs: Yes Questionnaire Thrive Questionnaire Date Thrive assessed: 06/19/23 JACQUI-7 AMB Questionnaire JACQUI-7 Date JACQUI - 7 assessed: 06/19/23 Source: Developed by Drs. Carmine Nguyen, Lee Ann Roblero, Jose An and colleagues, with an educational scout from [employer]. Review of Systems Const Denies chills, Denies fatigue, Denies fever(s) and Denies headache(s) ENT Denies dysphagia, Denies dizziness, Denies otalgia, Denies headache(s), Denies neck pain, Denies odynophagia and Denies sore throat Card Denies chest pain, Denies palpitations and Denies dyspnea Resp Denies chest congestion, Denies cough and Denies dyspnea GI Denies abdominal pain, Denies constipation, Denies dysphagia, Denies heartburn, Denies diarrhea, Denies nausea, Denies odynophagia and Denies vomiting Denies hematuria, Denies dysuria, Reports nocturia and Reports urinary frequency Musc Reports back pain (over the lower back - chronic; (+) left-sided low back pain lately), Reports arthralgias (left shoulder - slightly better since cortisone injection 2 days ago), Reports muscle weakness (in the right leg recently) and Denies neck pain Skin/Breast Denies rash Neuro Denies dizziness and Denies headache(s) Endo Denies fatigue, Reports polydipsia, Reports polyuria and Denies palpitations Physical exam (Primary Care) Vital Signs: Last Vital Signs Pulse 72 10/06/23 09:14 BP 114/60 10/06/23 09:14 Pulse Ox 98 10/06/23 09:14 Oxygen Delivery Method Room Air 10/06/23 09:14 BMI result Body Mass Index 28.6 Tobacco/Smoking Status: Tobacco use Status Tobacco use date assessed 06/19/23 10/06/23 09:15 Patient Tobacco Use Status Former Tobacco user 10/06/23 09:15 Tobacco use type Cigarette 10/06/23 09:15 e-Cigarette/Vaping Use Never Used 10/06/23 09:15 Thrive Assessment: Date of Thrive Assessment Date Thrive assessed 06/19/23 10/06/23 09:15 Const General: no acute distress and alert HENMT Ears: TM's normal bilaterally and EAC's normal Throat: Yes posterior oropharynx normal and Yes tonsils normal (no TP congestion noted) Neck Neck: Yes no lymphadenopathy and Yes supple Thyroid: Thyroid normal Resp Auscultation: clear to auscultation bilaterally, no rales and no wheezes Cardio Rate: regular rate Rhythm: regular rhythm Heart sounds: no murmurs GI Palpation (GI): Soft to palpation and nontender Auscultation: normal bowel sounds Back/Spine/Pelvis Thoracic/Lumbar Spine: lumbar spinal tenderness Skin Rashes: no rashes Extrem General: Yes no clubbing, cyanosis or edema Left upper extremity: shoulder/upper arm Details: tenderness Location: of the A-C joint; no swelling Results AMB Hemoglobin A1c AMB Hemoglobin A1c 8.3 % Last Edit by ROBYN Hogan on 10/06/23 09:33 Results Reviewed Results Reviewed: Laboratory Last Values Hgb A1c (Clinic) 8.3 % (4.0-6.0) H 10/06/23 09:18 Assessment and Plan Assessment & Plan (1) Type 2 diabetes mellitus with other diabetic kidney complication: Code(s): E11.29 - Type 2 diabetes mellitus with other diabetic kidney complication Plan: In-office HgbA1c done today is at 8.3% (his HgbA1c was at 10.4% a few months ago - goal is < 7.0% Reinforced diabetic diet Continue Metformin 1000 mg BID, Jardiance 25 mg Q AM and Pioglitazone 30 mg QD He was also supposedly started back by [facility] on Glipizide 5 mg BID a few weeks ago; was referred back and he started seeing them again recently (2) Proteinuria, unspecified: Code(s): R80.9 - Proteinuria, unspecified Qualifiers: Proteinuria type: unspecified Qualified Code(s): R80.9 - Proteinuria, unspecified Plan: Will continue? to monitor his renal function regularly Reminded again that his proteinuria will continue to progress and get worse if his diabetes is not adequately controlled (3) Benign essential hypertension: Code(s): I10 - Essential (primary) hypertension Plan: Reinforced low-sodium diet -? goal is systolic BP of at least 130 to 140 mm or less Continue Losartan 100 mg QD, Hydrochlorothiazide 25 mg QD, Amlodipine 10 mg QD, Atenolol 50 mg QD and Hydralazine 25 mg BID (4) Pure hypercholesterolemia: Code(s): E78.00 - Pure hypercholesterolemia, unspecified Plan: He did not get his follow up labs done recently Reinforced low cholesterol diet Continue Atorvastatin 80 mg QD Will recheck his labs and fasting lipids in 3 months for follow up (5) Vitamin D deficiency: Code(s): E55.9 - Vitamin D deficiency, unspecified Plan: Continue Vitamin D3 2000 units QD (6) GERD without esophagitis: Code(s): K21.9 - Gastro-esophageal reflux disease without esophagitis Plan: Dietary restrictions reinforced Continue Omeprazole 20 mg QD (7) Lumbar degenerative disc disease: Code(s): M51.36 - Other intervertebral disc degeneration, lumbar region Plan: Reinforced activity and weight lifting restrictions Abdominal / pelvic CT done a few months ago revealed (+) degenerative disc disease, with mild canal stenosis and moderate bilateral neural foraminal stenosis at L4-L5, with no acute fracture or subluxation Continue Percocet 5-325 mg 1 tablet every 6-8 hours as needed and Gabapentin 300 mg BID Follow up with [facility] as scheduled (8) Primary osteoarthritis of right shoulder: Code(s): M19.011 - Primary osteoarthritis, right shoulder Plan: S/P right rotator cuff repair with some improvement of his symptoms MRI of the right shoulder done last year showed (+)? tendinosis, large subacromial spur, OA changes as well as a posterior labral tear in the shoulder Follow-up with Orthopedics as scheduled (9) Left shoulder pain: Code(s): M25.512 - Pain in left shoulder Qualifiers: Chronicity: unspecified Qualified Code(s): M25.512 - Pain in left shoulder Plan: X-rays of the left shoulder done back in April 2023 revealed (+) calcific tendinitis of the shoulder He reportedly received cortisone injection into his left shoulder a couple of days ago, with some improvement of his shoulder pain since Follow up with orthopedics as scheduled (10) Leg weakness, bilateral: Code(s): R29.898 - Other symptoms and signs involving the musculoskeletal system Plan: Notes that his legs have been feeling weak since he received a cortisone injection into his left shoulder from orthopedics a couple of days ago, especially in the right leg, and he has been having some difficulty walking lately Will send him for some labs SADE for further evaluation - need to check for steroid-induced myopathy (11) Insomnia: Code(s): G47.00 - Insomnia, unspecified Qualifiers: Insomnia type: primary Qualified Code(s): F51.01 - Primary insomnia Plan: Sleep hygiene reinforced Continue Trazodone 50 mg once a day as needed (12) Obesity (BMI 30-39.9): Code(s): E66.9 - Obesity, unspecified Plan: Reinforced diet/exercise as tolerated/lose weight Plan Follow up in 3 months Orders: Orders AMB Hemoglobin A1c Today E11.29 - Type 2 diabetes mellitus with other diabetic kidney complication Complete Blood Count Auto Diff 3 Months D64.9 - Anemia, unspecified Lipid Panel 3 Months E78.00 - Pure hypercholesterolemia, unspecified Hemoglobin A1c 3 Months E11.9 - Type 2 diabetes mellitus without complications TSH reflex Free T4 3 Months E78.00 - Pure hypercholesterolemia, unspecified Vitamin B12 and Folate 3 Months E53.8 - Deficiency of other specified B group vitamins Complete Blood Count Auto Diff Today D64.9 - Anemia, unspecified, R29.898 - Other symptoms and signs involving the musculoskeletal system C Reactive Protein Today R29.898 - Other symptoms and signs involving the musculoskeletal system TSH reflex Free T4 Today E78.00 - Pure hypercholesterolemia, unspecified, R29.898 - Other symptoms and signs involving the musculoskeletal system Magnesium Today E83.42 - Hypomagnesemia, R29.898 - Other symptoms and signs involving the musculoskeletal system Comprehensive [place]. Panel Fast 3 Months E78.00 - Pure hypercholesterolemia, unspecified Microalbumin, Random (w Creat) 3 Months E11.9 - Type 2 diabetes mellitus without complications UA CC w/rflx Micro + Cult 3 Months R30.0 - Dysuria Vitamin D 25-OH Total 3 Months E55.9 - Vitamin D deficiency, unspecified Comprehensive Met. Panel Today R29.898 - Other symptoms and signs involving the musculoskeletal system Erythrocyte Sedimentation Rate Today M79.7 - Fibromyalgia, R29.898 - Other symptoms and signs involving the musculoskeletal system CK, Total+Isoenzymes, Serum Today R29.898 - Other symptoms and signs involving the musculoskeletal system Vitamin B12 and Folate Today E53.8 - Deficiency of other specified B group vitamins, R29.898 - Other symptoms and signs involving the musculoskeletal system Vitamin D 25-OH Total Today E55.9 - Vitamin D deficiency, unspecified, R29.898 - Other symptoms and signs involving the musculoskeletal system Myoglobin,Serum Today R29.898 - Other symptoms and signs involving the musculoskeletal system Coding Level of Care Code Est Pt Level 4 (19744) Complex EM visit Add On G2211 Diagnoses Type 2 diabetes mellitus with other diabetic kidney complication E11.29 Proteinuria, unspecified type R80.9 Proteinuria type: unspecified Benign essential hypertension I10 Pure hypercholesterolemia E78.00 Vitamin D deficiency E55.9 GERD without esophagitis K21.9 Lumbar degenerative disc disease M51.36 Primary osteoarthritis of right shoulder M19.011 Left shoulder pain, unspecified chronicity M25.512 Chronicity: unspecified Leg weakness, bilateral R29.898 Primary insomnia F51.01 Insomnia type: primary Obesity (BMI 30-39.9) E66.9
== END 2023-10-06 10:01 | disposition home or self-care (01) ==
PROVIDERS: PCP Internal Medicine; Visit Provider Internal Medicine
DX: E11.29 Type 2 diabetes mellitus with other diabetic kidney complication (principal); E66.9 Obesity, unspecified; Z68.28 Body mass index [BMI] 28.0-28.9, adult; R80.9 Proteinuria, unspecified; I10 Essential (primary) hypertension; E78.00 Pure hypercholesterolemia, unspecified; E55.9 Vitamin D deficiency, unspecified; K21.9 Gastro-esophageal reflux disease without esophagitis; M51.36 Other intervertebral disc degeneration, lumbar region; M19.011 Primary osteoarthritis, right shoulder; M25.512 Pain in left shoulder; R29.898 Other symptoms and signs involving the musculoskeletal system
CPT/HCPCS: 83036; 99214; G2211

== ENCOUNTER 2023-10-06 10:12 | Outpatient (REF) | payer OTHER, SELFPAY ==
[2023-10-06 10:25] LABS: MANUAL DIFF FLAG NO
[2023-10-06 11:05] LABS: Basophils Absolute Auto 0.1 X10*3/uL (0.0-0.2); Basophils Percent Auto 0.9 % (0-2); Eosinophils Absolute Auto 0.6 X10*3/uL (0.0-0.4); Eosinophils Percent Auto 6.3 % (0-4); Hematocrit 49.4 % (42.0-52.0); Hemoglobin 16.7 g/dl (14.0-18.0); Imm Gran Abs Auto 0.03 X10*3/uL (0.00-0.03); Imm Gran Pct Auto 0.3 % (0.0-0.4); Lymphocytes Absolute Auto 2.3 X10*3/uL (1.2-4.9); Lymphocytes Percent Auto 22.5 % (20-40); Mean Corpuscular HGB Conc 33.8 g/dl (31.0-36.0); Mean Corpuscular Hemoglobin 29.6 pg (27.0-33.0); Mean Corpuscular Volume 87.6 fL (80.0-98.0); Mean Platelet Volume 9.9 fL (9.4-12.4); Monocytes Absolute Auto 0.8 X10*3/uL (0.1-1.2); Monocytes Percent Auto 7.6 % (2-11); Neutrophils Absolute Auto 6.3 x10*3/uL (2.0-8.3); Neutrophils Percent Auto 62.4 % (45-73); Platelet Count 204 X10*3/uL (160-400); Red Blood Count 5.64 X10*6/uL (4.60-5.80); Red Cell Distribution Width 12.5 % (11.0-16.0); White Blood Count 10.1 X10*3/uL (4.8-10.8)
[2023-10-06 11:50] LABS: Erythrocyte Sedimentation Rate 11 MM/HR (0-15)
[2023-10-06 12:19] LABS: Alanine Aminotransferase 20 U/L (0-40); Albumin Level 4.6 g/dL (3.5-5.0); Alkaline Phosphatase 70 U/L (39-117); Anion Gap 15 (12-20); Aspartate Amino Transferase 19 U/L (5-37); Bilirubin Total 0.6 mg/dL (0.0-1.0); Blood Urea Nitrogen 17 mg/dL (9-16); C Reactive Protein 0.31 mg/dL (< or = 0.50); Calcium 10.2 mg/dL (8.4-10.2); Carbon Dioxide 24 mmol/L (22-29); Chloride 109 mmol/L (96-108); Estimated Glomerular Filt Rate > 60; Glucose Random 105 mg/dL (60-115); Magnesium 2.2 mg/dL (1.6-2.6); Potassium 4.7 mmol/L (3.3-5.1); Sodium 143 mmol/L (135-145); Total Protein 7.9 g/dL (6.5-8.0)
[2023-10-06 12:36] LABS: TSH reflex Free T4 0.78 uIU/mL (0.32-4.0); Vitamin D 25-OH Total 34.6 ng/mL (>30)
[2023-10-06 12:42] LABS: Folate 12.8 ng/mL (> or = 4.0); Vitamin B12 667 pg/mL (200-900)
[2023-10-10 09:09] LABS: Myoglobin,Serum 40 mcg/L (<=95)
== END 2023-10-06 10:13 | disposition home or self-care (01) ==
LOC: HO.LAB 10:12
PROVIDERS: PCP Internal Medicine; Visit Provider Internal Medicine
DX: E78.00 Pure hypercholesterolemia, unspecified (principal); E53.8 Deficiency of other specified B group vitamins; R29.898 Other symptoms and signs involving the musculoskeletal system; M79.7 Fibromyalgia; D64.9 Anemia, unspecified; E83.42 Hypomagnesemia
CPT/HCPCS: 36415; 80053; 82306; 82552; 82607; 82746; 83735; 83874; 84443; 85025; 85652; 86140

== ENCOUNTER 2024-03-12 07:51 | Outpatient (REF) | payer OTHER, SELFPAY ==
[2024-03-12 08:08] LABS: MANUAL DIFF FLAG NO
[2024-03-12 08:57] LABS: Basophils Absolute Auto 0.1 X10*3/uL (0.0-0.2); Basophils Percent Auto 1.4 % (0-2); Eosinophils Absolute Auto 0.9 X10*3/uL (0.0-0.4); Eosinophils Percent Auto 12.5 % (0-4); Hematocrit 48.5 % (42.0-52.0); Imm Gran Abs Auto 0.02 X10*3/uL (0.00-0.03); Imm Gran Pct Auto 0.3 % (0.0-0.4); Lymphocytes Absolute Auto 1.8 X10*3/uL (1.2-4.9); Lymphocytes Percent Auto 26.4 % (20-40); Mean Corpuscular Hemoglobin 28.9 pg (27.0-33.0); Mean Corpuscular Volume 87.7 fL (80.0-98.0); Mean Platelet Volume 9.7 fL (9.4-12.4); Monocytes Absolute Auto 0.7 X10*3/uL (0.1-1.2); Monocytes Percent Auto 10.2 % (2-11); Neutrophils Absolute Auto 3.4 x10*3/uL (2.0-8.3); Neutrophils Percent Auto 49.2 % (45-73); Platelet Count 180 X10*3/uL (160-400); Red Blood Count 5.53 X10*6/uL (4.60-5.80); Red Cell Distribution Width 12.6 % (11.0-16.0)
[2024-03-12 09:29] LABS: Appearance Urine Clear; Color Urine Yellow; Glucose Urine UA >=1000 mg/dL (Negative); Leukocyte Esterase Urine Negative (Negative); Nitrite Urine Negative (Negative); Specific Gravity - Urine >= 1.030 (1.005-1.025); UMIC TRIGGER UA YES; Urine Blood Negative (Negative); Urine Ketones Negative (Negative); Urine Protein 100 (2+) mg/dL (Neg-Trace)
[2024-03-12 09:37] LABS: Alanine Aminotransferase 29 U/L (0-40); Albumin Level 4.2 g/dL (3.5-5.0); Alkaline Phosphatase 68 U/L (39-117); Anion Gap 11 (12-20); Aspartate Amino Transferase 29 U/L (5-37); Bilirubin Total 0.7 mg/dL (0.0-1.0); Blood Urea Nitrogen 14 mg/dL (9-16); Carbon Dioxide 27 mmol/L (22-29); Chloride 105 mmol/L (96-108); Cholesterol 157 mg/dL (<200); Estimated Glomerular Filt Rate > 60; Glucose Random 122 mg/dL (60-115); HDL Cholesterol 69 mg/dL (>40); LDL Cholesterol Calculated 75 mg/dL (<100); Potassium 4.4 mmol/L (3.3-5.1); Sodium 139 mmol/L (135-145); Total Protein 7.3 g/dL (6.5-8.0); Triglycerides 69 mg/dL (<150)
[2024-03-12 09:39] LABS: Prostate Specific Antigen 0.45 ng/mL (<0.05-4.0)
[2024-03-12 09:40] LABS: Bacteria Urine None Seen (None Seen); Hyaline Casts Urine 0-2 /LPF (0-2); RBC Urine 0-2 /HPF (0-2); Squamous Epithelial Cell Urine 0-2 /HPF (0-2); WBC Urine 0-5 /HPF (0-5)
[2024-03-12 09:40] LABS: TSH reflex Free T4 1.17 uIU/mL (0.32-4.0)
[2024-03-12 10:30] LABS: Creatinine Urine 87.72 mg/dL; Microalbum/Creatinine Ratio Ur 720.4 ug/mg cr (<30)
== END 2024-03-12 07:52 | disposition home or self-care (01) ==
LOC: HO.LAB 07:51
PROVIDERS: PCP Internal Medicine; Visit Provider Internal Medicine Endocrinology, Diabetes & Metabolism
DX: E11.8 Type 2 diabetes mellitus with unspecified complications (principal); Z12.5 Encounter for screening for malignant neoplasm of prostate
CPT/HCPCS: 36415; 80053; 80061; 81001; 81003; 82043; 82570; 84153; 84443; 85025

== ENCOUNTER 2024-04-01 07:42 | Outpatient (REF) | payer OTHER, SELFPAY ==
[2024-04-01 08:00] LABS: MANUAL DIFF FLAG NO
[2024-04-01 08:50] LABS: Basophils Absolute Auto 0.1 X10*3/uL (0.0-0.2); Basophils Percent Auto 1.3 % (0-2); Eosinophils Absolute Auto 0.8 X10*3/uL (0.0-0.4); Eosinophils Percent Auto 11.8 % (0-4); Hematocrit 48.1 % (42.0-52.0); Hemoglobin 16.1 g/dl (14.0-18.0); Imm Gran Abs Auto 0.02 X10*3/uL (0.00-0.03); Imm Gran Pct Auto 0.3 % (0.0-0.4); Lymphocytes Absolute Auto 2.3 X10*3/uL (1.2-4.9); Lymphocytes Percent Auto 35.7 % (20-40); Mean Corpuscular HGB Conc 33.5 g/dl (31.0-36.0); Mean Corpuscular Hemoglobin 29.3 pg (27.0-33.0); Mean Corpuscular Volume 87.6 fL (80.0-98.0); Mean Platelet Volume 9.8 fL (9.4-12.4); Monocytes Absolute Auto 0.6 X10*3/uL (0.1-1.2); Neutrophils Absolute Auto 2.6 x10*3/uL (2.0-8.3); Neutrophils Percent Auto 40.9 % (45-73); Platelet Count 177 X10*3/uL (160-400); Red Blood Count 5.49 X10*6/uL (4.60-5.80); Red Cell Distribution Width 12.6 % (11.0-16.0); White Blood Count 6.4 X10*3/uL (4.8-10.8)
[2024-04-01 08:55] LABS: Estimated Average Glucose 206 mg/dL; Hemoglobin A1C 291.1718 umol/L; Hemoglobin A1c % 8.8 % (<6.0); Total Hemoglobin (HGBA1C) 4036.0732 umol/L
[2024-04-01 08:59] LABS: Appearance Urine Clear; Color Urine Yellow; Glucose Urine UA >=1000 mg/dL (Negative); Leukocyte Esterase Urine Negative (Negative); Nitrite Urine Negative (Negative); PH 5.5 (5.0-9.0); Specific Gravity - Urine >= 1.030 (1.005-1.025); UMIC TRIGGER UACC YES; Urine Blood Negative (Negative); Urine Ketones Negative (Negative); Urine Protein 100 (2+) mg/dL (Neg-Trace)
[2024-04-01 09:06] LABS: Bacteria Urine None Seen (None Seen); Hyaline Casts Urine 0-2 /LPF (0-2); RBC Urine 0-2 /HPF (0-2); Squamous Epithelial Cell Urine 0-2 /HPF (0-2); WBC Urine 0-5 /HPF (0-5)
[2024-04-01 09:22] LABS: Alanine Aminotransferase 33 U/L (0-40); Albumin Level 4.2 g/dL (3.5-5.0); Alkaline Phosphatase 65 U/L (39-117); Anion Gap 10 (12-20); Aspartate Amino Transferase 29 U/L (5-37); Bilirubin Total 0.8 mg/dL (0.0-1.0); Blood Urea Nitrogen 19 mg/dL (9-16); Calcium 9.5 mg/dL (8.4-10.2); Carbon Dioxide 28 mmol/L (22-29); Chloride 104 mmol/L (96-108); Cholesterol 206 mg/dL (<200); Estimated Glomerular Filt Rate > 60; Glucose Fasting 124 mg/dL (60-99); HDL Cholesterol 61 mg/dL (>40); LDL Cholesterol Calculated 130 mg/dL (<100); Potassium 3.8 mmol/L (3.3-5.1); Sodium 138 mmol/L (135-145); Triglycerides 75 mg/dL (<150)
[2024-04-01 09:40] LABS: TSH reflex Free T4 1.53 uIU/mL (0.32-4.0); Vitamin D 25-OH Total 35.8 ng/mL (>30)
[2024-04-01 09:46] LABS: Folate 14.6 ng/mL (> or = 4.0); Vitamin B12 642 pg/mL (200-900)
[2024-04-01 09:46] LABS: Creatinine Urine 86.17 mg/dL
[2024-04-01 10:03] LABS: Microalbum/Creatinine Ratio Ur 617.3 ug/mg cr (<30)
== END 2024-04-01 07:43 | disposition home or self-care (01) ==
LOC: HO.LAB 07:42
PROVIDERS: PCP Internal Medicine; Visit Provider Internal Medicine
DX: E78.00 Pure hypercholesterolemia, unspecified (principal); D64.9 Anemia, unspecified; E55.9 Vitamin D deficiency, unspecified; E11.9 Type 2 diabetes mellitus without complications; E53.8 Deficiency of other specified B group vitamins
CPT/HCPCS: 36415; 80053; 80061; 81001; 81003; 82043; 82306; 82570; 82607; 82746; 83036; 84443; 85025

== ENCOUNTER 2024-05-07 13:18 | Outpatient (AMB) | payer OTHER, SELFPAY ==
--- OUTSIDE RECORDS SUMMARY | 2024-05-07 13:20 | XMS_ITS | Patient Health Record ---
Author Organization [facility] Address [address] [place] [address] Care Team Providers Care Computer Terminal Operator Name Role Phone Sven NELSON, [place] Primary Care Provider UnaShelli Mendieta Unavailable [phone] Reason For Referral No Information Plan Of Treatment No Information Insurance Providers Payer Name Payer Address Payer Phone Subscriber Number Group Number Insured Name Patient Relationship to Insured Coverage Start Date Coverage End Date [facility] [employer] Claims [address] [place] [id number] [phone] [id number] Benito Martin Self - patient is the insured
--- OUTSIDE RECORDS SUMMARY | 2024-05-07 13:20 | XMS_ITS | Continuity of Care Document ---
Author Organization [facility] [address] [facility] [address] [place] [address] Phone [phone] Care Team Providers Care Shuttle Fixer Name Role Phone Raymond Machuca Care Team Information Assistant Credit Manager [phone] Problems Active Problems Provider Date Type 2 diabetes mellitus Kevan Cunningham M.D. Onset: 08/01/2023 Gastroesophageal reflux disease Kevan rubi M.D. Onset: 08/01/2023 Obesity Kevan Cunningham M.D. Onset: 0 08/01/2023 Insomnia Kevan Cunningham M.D. Onset: 0 08/01/2023 Vitamin D deficiency Kevan Cunningham M.D. Ons et: 08/01/2023 Pure hypercholesterolemia Isiah Hanson Onset: 08/01/2023 Essential hypertension Kevan Cunningham M.D. O nset: 08/01/2023 Social History Type Date Description Comments Sex Unknown ETOH Use Occasionally consumes beer Tobacco Use Start: Unknown End: Unknown Patient is a former smoker Allergies and adverse reactions Description No Known Drug Allergies Medications Active Medications SIG Qnty Indications Order ing Provider Date [id number] Tablets Take 1 Tablet By Mouth Every Morning For 90 Days 90tabs Kevan Cunningham M.D. 03/08/2024 Onetouch VerioStrips use 1 strip via meter three times daily Dx: E11.9 300units E11.8 Kevan Cunningham M.D. 11/06/2023 Qkuwryiuq5mr Tablets 1 tablet by mouth twice daily 180tabs Kevan Cunningham M.D. 08/01/2023 Onetouch Verio Reflectw/Device Kit use to test glucose 1 time a day 1units Kevan Cunningham M.D. 08/01/2023 Yuaurrfvta43tr Tablets 1 tablet by mouth every day 90tabs Kevan Cunningham M.D. 08/01/2023 Tizanidine HCL4mg Tablets Take 1 Tablet By Mouth Every 8 Hours as Needed For Muscle Spasticity Sven, Raymond Atorvastatin Rzukgog41se Tablets Take 1 Tablet By Mouth Every Day Sven, Raymond Pioglitazone UQL87uq Tablets Take 1 Tablet By Mouth Every Day Sven, Raymond Xoacfjzipr99eg Capsules DR Take 1 Capsule By Mouth Daily as Needed For Acid Reflux Sven, [place] Xficzaeqg055dy Capsules Take 1 Capsule By Mouth Twice A Day For 30 Days Julio Olson PA Ufpqtimc29dp Tablets Take 1 Tablet By Mouth Every Day For 90 Days Sven, Raymond History Medications Onetouch UltraStrips use 1 strip via meter three times daily 300units Kevan Cunningham M.D. 08/01/2023 - 11/06/2023 Vital Signs Date Vital Result Comment 03/08/2024 2:28pm BP Systolic 130 mmHg BP Diastolic 80 mmHg Heart Rate 72 /min Height 65 inches 5'5 Weight 179.00 lb BMI (Body Mass Index) 29.8 kg/m2 Results Test Acquired Date Facility Test Result H/L [facility] [place] Laboratory test finding 03/08/2024 Inhouse Glucose Fingerstick 156 Hemoglobin A1c 8.3 Laboratory test finding 08/01/2023 Inhouse Hemoglobin A1c 10.4% Glucose Fingerstick 418 Procedures Date Code Description Status 09/12/2023 NSHOWOFF No Show Office Visit Complet ed Medical Devices Description No Information Available Encounters Type Date Location Provider Dx Diagnosis Office Visit 03/08/2024 2:30p Main Office Kevan Cunningham M.D. E11.8 Type 2 diabetes mellitus with unspecified complications Assessments Date Code Description Provider 03/08/2024 E11.8 Type 2 diabetes mellitus with unspecified complications Kevan Cunningham M.D. Plan of Treatment Future Appointment(s):* 06/19/2024 1:00 pm - Kevan Cunningham M.D. at Main Office 03/08/2024 - Kevan Cunningham M.D.* E11.8 Type 2 diabetes mellitus with unspecified complications * * New Labs:* CMP W/Egfr, Ordered: 03/08/24 * Lipid Panel, Ordered: 03/08/24 * Ua Complete, Ordered: 03/08/24 * CBC W/Auto Differential, Ordered: 03/08/24 * PSA Total, Ordered: 03/08/24 * TSH & Free T4, Ordered: 03/08/24 * Urine Microalb+Creat+Ratio RDM, Ordered: 03/08/24 Functional Status Description No Information Available Mental Status Description No Information Available Referrals Description No Information Available
--- OUTSIDE RECORDS SUMMARY | 2024-05-07 13:20 | XMS_ITS ---
Author Organization [facility] Address [address] [place] [address] Care Team Providers Care Development Rep Name Role Phone Sven NELSON, Raymond Primary Care Provider Unava ilShelli Kim Unavailable [phone] Encounters Encounter Location Date Provider Diagnosis [address] [address] 03/04/2024 Shelli Ralph Plan Of Treatment No Information Progress Notes * Benito THOMASDOB:1950 ( 73 yo M)Acc No.[id number]:03/04/2024 Progress Notes Patient:?Benito THOMAS Provider:?Shelli Ralph DPM :1950???Age:73 Y???Sex:Male Jay e:03/04/2024 Address:[address] [place], [place] [id number] Pcp:Raymond Machuca MD Subjective: * Chief Complaints: * ??? * Medical History:? Objective: * Vitals:? Assessment: Plan: * Treatment: * Images: * The named appointment provid er may or may not be the originator of this progress note, and it is not deemed complete until electronically signed by the appointment provider. Sign off status: Pending * Provider:?Shelli Ralph DPM Date:? Generated for Rebecca cohen/Maycol/eTransmitting on:?05/07/2024 01:19 PM EST
[2024-05-07 13:34] VITALS: BP 126/82; PULSE 50; O2SAT 97
--- NOTE | 2024-05-07 13:34 | A.OFFPC_ITS ---
Vital Signs 05/07/24 13:34 Height 5 ft 5 in Weight 180 lb BMI 30.0 BP 126/82 Blood Pressure Location Lt brachial Position Sitting Pulse 50 Pulse Source Pulse Oximeter Pulse Oximetry (%) 97 Oxygen Delivery Method Room Air Intake Visit Reasons: DM, hyperlipidemia Rn Security Required: No Accompanied by: Self / Same As Patient Allergies No Known Allergies Allergy (Verified 05/07/24 14:00) Medication List - Last Reconciled 05/07/24 by Raymond Machuca MD acetaminophen (Tylenol) 650 mg (2 x 325 mg) PO Q6H PRN amlodipine 10 mg PO DAILY 90 days atenolol 50 mg PO DAILY 90 days atorvastatin 80 mg PO DAILY celecoxib 200 mg PO BID cholecalciferol (vitamin D3) 50 mcg PO DAILY 90 days [diabetic shoe inserts As directed] [DIABETIC SHOES (1 pair) - size TBD based on patient As directed] diabetic supplies, miscellan. Diabetic shoes (1 pair) empagliflozin (Jardiance) 25 mg PO QAM 90 days [Freestyle joshua strips As directed] gabapentin 300 mg PO BID glipizide 5 mg PO BID hydralazine 25 mg PO BID hydrochlorothiazide 25 mg PO DAILY lidocaine 4% (Aspercreme (lidocaine)) 1 patch topical DAILY PRN losartan 100 mg PO DAILY meclizine 25 mg PO TID PRN metformin 1,000 mg PO BID omeprazole 20 mg PO DAILY PRN pioglitazone 30 mg PO DAILY 90 days Salonpas (lidocaine) 4% (lidocaine) 1 patch topical BID PRN NS tizanidine 4 mg PO Q8H PRN tizanidine 4 mg PO TID PRN trazodone 25 mg (1/2 x 50 mg) PO BEDTIME PRN Tobacco use date assessed: 05/07/24 Fall risk assessment: No Falls in past year Last assessed Fall Risk: 05/07/24 Dental Screening Dental Screen Date: 05/07/24 Did you have a dental visit in the last 12 months?: Yes Did you have a dental problem in the last 6 months where you did not have access to dental care?: No Was dental information given to patient?: Patient has dentist HPI DM, hyperlipidemia HPI Details Patient comes in today for his follow-up visit States that he feels okay He denies any headaches or dizziness Denies any chest pains, no SOB No nausea/vomiting, no abdominal pain No change in bowel habits noted He had his follow up labs done last month - to discuss his results [facility] Medical History GERD without esophagitis Dermatitis Obesity (BMI 30-39.9) Insomnia Vitamin D deficiency Lumbar degenerative disc disease Complex regional pain syndrome type 2 of left upper extremity Primary osteoarthritis of right shoulder Benign essential hypertension Pure hypercholesterolemia Proteinuria, unspecified Type 2 diabetes mellitus with other diabetic kidney complication Hypercholesteremia Hypertension Diabetes type 2, controlled Surgical History History of colonoscopy Status post right rotator cuff repair Family History Mother CVD (cardiovascular disease) Father No problems noted. Social History Housing: Apartment Alcohol intake: current Alcohol intake frequency: a few times a month Alcohol type: beer Patient Tobacco Use Status: Former Tobacco user Tobacco use type: Cigarette e-Cigarette/Vaping Use: Never Used Second Hand Smoke Exposure: Yes service: No Current occupational status: retired Cognitive needs: Yes (cane) Hearing needs: No (Pt has an old pair of hearing aid. ) Vision needs: Yes Questionnaire PHQ-9 Over the last 2 weeks, how often have you been bothered by any of the following problems? 1. Little interest or pleasure in doing things: not at all 2. Feeling down, depressed, or hopeless: not at all 3. Trouble falling or staying asleep, or sleeping too much: nearly every day 4. Feeling tired or having little energy: not at all 5. Poor appetite or overeating: not at all 6. Feeling bad about yourself - or that you are a failure or have let yourself or your family down: not at all 7. Trouble concentrating on things, such as reading the newspaper or watching television: not at all 8. Moving or speaking so slowly that other people could have noticed. Or the opposite - being so fidgety or restless that you have been moving around a lot more than usual: not at all 9. Thoughts that you would be better off or of hurting yourself in some way: not at all Total score: 3 Depression Screening Interpretation: Negative Depression Screening Done: Yes 29524 - PHQ-9 Billing: Yes Source: Developed by Drs. Carmine Nguyen, Lee Ann Roblero, Jose An and colleagues, with an educational scout from [employer] Thrive Questionnaire Date Thrive assessed: 05/07/24 I am a: Patient What is your living situation today?: I have a steady place to live Within the past 12 months, did the food you bought not last and you didn't have the money to get more?: Never true Within the past 12 months, did you worry whether your food would run out before you got money to buy more?: Never true Do you have trouble paying for medicines?: No Do you have trouble getting transportation to medical appointments?: No Do you have trouble paying your heating and electricity bill?: No Do you have trouble taking care of your child, family member or friend?: No Do you have trouble with day-to-day activities such as bathing, preparing meals, shopping, managing finances, etc.?: No Are you currently unemployed and looking for a job?: No Are you interested in more education?: No Please select the resources that you would like help with: None Currently or been in a relationship where the following occur: No concerns reported THRIVE Score: 0 AUDIT C Alcohol Use Questionnaire (AUDIT-C) 1. How often do you have a drink containing alcohol?: Never 3. How often do you have six or more drinks on one occasion?: Never Total Score: 0 Score Reviewed/Action Taken: Yes JACQUI-7 AMB Questionnaire JACUQI-7 Date JACQUI - 7 assessed: 05/07/24 Feeling nervous, anxious, or on edge: 0 = Not at all Not being able to stop or control worryin = Not at all Worrying too much about different things: 0 = Not at all Trouble relaxin = Not at all Being so restless that it is hard to sit still: 0 = Not at all Becoming easily annoyed or irritable: 0 = Not at all Feeling afraid as if something awful might happen: 0 = Not at all Total JACQUI-7 score (0-4 normal; 5-9 mild; 10-14 moderate; 15-21 severe): 0 Source: Developed by Drs. Carmine Nguyen, Lee Ann Roblero, Jose An and colleagues, with an educational scout from [employer] Review of Systems Const Denies chills, Denies fatigue, Denies fever(s) and Denies headache(s) ENT Denies dysphagia, Denies dizziness, Denies otalgia, Denies headache(s), Denies neck pain, Denies odynophagia and Denies sore throat Card Denies chest pain, Denies palpitations and Denies dyspnea Resp Denies chest congestion, Denies cough and Denies dyspnea GI Denies abdominal pain, Denies constipation, Denies dysphagia, Denies heartburn, Denies diarrhea, Denies nausea, Denies odynophagia and Denies vomiting Denies hematuria, Denies dysuria, Reports nocturia and Reports urinary frequency Musc Reports back pain (over the lower back - chronic; (+) left-sided low back pain lately), Reports arthralgias (left shoulder - slightly better since cortisone injection 2 days ago) and Denies neck pain Skin/Breast Denies rash Neuro Denies dizziness and Denies headache(s) Endo Denies fatigue, Reports polydipsia, Reports polyuria and Denies palpitations Physical exam (Primary Care) Vital Signs: Last Vital Signs Pulse 50 05/07/24 13:34 BP 126/82 05/07/24 13:34 Pulse Ox 97 05/07/24 13:34 Oxygen Delivery Method Room Air 05/07/24 13:34 BMI result Body Mass Index 30.0 Tobacco/Smoking Status: Tobacco use Status Tobacco use date assessed 05/07/24 05/07/24 13:35 Patient Tobacco Use Status Former Tobacco user 05/07/24 13:35 Tobacco use type Cigarette 05/07/24 13:35 e-Cigarette/Vaping Use Never Used 05/07/24 13:35 PHQ-9: PHQ-9 Score PHQ-9: Total score 3 05/07/24 14:01 Depression Screening Interpretation: Negative Thrive Assessment: Date of Thrive Assessment Date Thrive assessed 05/07/24 05/07/24 13:46 Currently or been in a relationship where the following occur: No concerns re ported Const General: no acute distress and alert HENMT Ears: TM's normal bilaterally and EAC's normal Throat: Yes posterior oropharynx normal and Yes tonsils normal (no TP congestion noted) Neck Neck: Yes supple and No lymphadenopathy Thyroid: Thyroid normal Resp Auscultation: clear to auscultation bilaterally, no rales and no wheezes Cardio Rate: regular rate Rhythm: regular rhythm Heart sounds: no murmurs GI Palpation (GI): Soft to palpation and nontender Auscultation: normal bowel sounds General: Yes no CVA tenderness Back/Spine/Pelvis Back: no CVA tenderness Thoracic/Lumbar Spine: lumbar spinal tenderness Skin Rashes: no rashes Extrem General: Yes no clubbing, cyanosis or edema Left upper extremity: shoulder/upper arm Details: tenderness Location: of the A- C joint; no swelling Results Reviewed Results Reviewed: Laboratory Tests 10/06/23 03/12/24 04/01/24 09:18 08:07 07:54 WBC Hgb Hct Plt Count Sodium Potassium Creatinine Estimated GFR Fasting Glucose Hgb A1c (Clinic) 8.3 H Hemoglobin A1c % Calcium AST ALT Triglycerides Cholesterol LDL Cholesterol, Calc 75 HDL Cholesterol Prostate Specific Ag 0.45 Vitamin B12 25-OH Vitamin D Total TSH Ur Specific Covel >= 1.030 H Urine Protein 100 (2+) H Urine Glucose (UA) >=1000 H Urine Blood Negative Urine Nitrite Negative Ur Leukocyte Esterase Negative Microalb/Creat Ratio 617.3 H 04/01/24 07:57 WBC 6.4 Hgb 16.1 Hct 48.1 Plt Count 177 Sodium 138 Potassium 3.8 Creatinine 1.02 Estimated GFR > 60 Fasting Glucose 124 H Hgb A1c (Clinic) Hemoglobin A1c % 8.8 H Calcium 9.5 AST 29 ALT 33 Triglycerides 75 Cholesterol 206 H LDL Cholesterol, Calc 130 H HDL Cholesterol 61 Prostate Specific Ag Vitamin B12 642 25-OH Vitamin D Total 35.8 TSH 1.53 Ur Specific Covel Urine Protein Urine Glucose (UA) Urine Blood Urine Nitrite Ur Leukocyte Esterase Microalb/Creat Ratio Coding Level of Care Code Est Pt Level 4 (95322) Diagnoses Type 2 diabetes mellitus with other diabetic kidney complication E11.29 Proteinuria, unspecified type R80.9 Proteinuria type: unspecified Benign essential hypertension I10 Pure hypercholesterolemia E78.00 Vitamin D deficiency E55.9 GERD without esophagitis K21.9 Degeneration of intervertebral disc of lumbar region with discogenic back pain M51.360 Disc-related pain type: discogenic back pain only Primary osteoarthritis of right shoulder M19.011 Calcific tendinitis of left shoulder M75.32 Primary insomnia F51.01 Insomnia type: primary Obesity (BMI 30-39.9) E66.9 Additional Codes PHQ-9 - 78250 - PHQ-9 Billing: Yes ([id number]) Assessment & Plan Assessment & Plan (1) Type 2 diabetes mellitus with other diabetic kidney complication: Code(s): E11.29 - Type 2 diabetes mellitus with other diabetic kidney complication Category: Medical Plan: His HgbA1c was at 8.8% on his labs done last week (his in-office HgbA1c was at 8.3% a few months ago) - goal is < 7.0% Reinforced diabetic diet Patient is aware that his HgbA1c has increased from previous and is attributing this likely to his weight gain and his recent poor compliance with his diet and states that he will work on improving this Continue Metformin 1000 mg BID, Jardiance 25 mg Q AM, Pioglitazone 30 mg QD and Glipizide 5 mg BID Follow up with [facility] as scheduled (2) Proteinuria, unspecified: Code(s): R80.9 - Proteinuria, unspecified Category: Medical Qualifiers: Proteinuria type: unspecified Qualified Code(s): R80.9 - Proteinuria, unspecified Plan: Will continue to monitor his renal function regularly Patient is reminded again that his proteinuria will continue to progress and get worse if his diabetes is not adequately controlled (3) Benign essential hypertension: Code(s): I10 - Essential (primary) hypertension Category: Medical Plan: Reinforced low-sodium diet -? goal is systolic BP of at least 130 to 140 mm or less Continue Losartan 100 mg QD, Hydrochlorothiazide 25 mg QD, Amlodipine 10 mg QD, Atenolol 50 mg QD and Hydralazine 25 mg BID (4) Pure hypercholesterolemia: Code(s): E78.00 - Pure hypercholesterolemia, unspecified Category: Medical Plan: Results of his labs done last month reviewed and discussed with patient Reinforced low cholesterol diet Continue Atorvastatin 80 mg QD Will recheck his labs and fasting lipids in 3 months for follow up (5) Vitamin D deficiency: Code(s): E55.9 - Vitamin D deficiency, unspecified Category: Medical Plan: Continue Vitamin D3 2000 units QD (6) GERD without esophagitis: Code(s): K21.9 - Gastro-esophageal reflux disease without esophagitis Category: Medical Plan: Dietary restrictions reinforced Continue Omeprazole 20 mg QD (7) Lumbar degenerative disc disease: Code(s): M51.36 - Other intervertebral disc degeneration, lumbar region Category: Medical Qualifiers: Disc-related pain type: discogenic back pain only Qualified Code(s): M51.360 - Other intervertebral disc degeneration, lumbar region with discogenic back pain only Plan: Reinforced activity and weight lifting restrictions Abdominal / pelvic CT done a few months ago revealed (+) degenerative disc disease, with mild canal stenosis and moderate bilateral neural foraminal stenosis at L4-L5, with no acute fracture or subluxation Continue Percocet 5-325 mg 1 tablet every 6-8 hours as needed and Gabapentin 300 mg BID (8) Primary osteoarthritis of right shoulder: Code(s): M19.011 - Primary osteoarthritis, right shoulder Category: Medical Plan: MRI of the right shoulder done last year showed (+)? tendinosis, large subacromial spur, OA changes as well as a posterior labral tear in the shoulder Patient underwent right rotator cuff repair with some improvement of his symptoms Follow-up with Orthopedics as scheduled (9) Calcific tendinitis of left shoulder: Code(s): M75.32 - Calcific tendinitis of left shoulder Category: Medical Plan: X-rays of the left shoulder done back in April 2023 revealed (+) calcific tendinitis of the shoulder He received cortisone injection into his left shoulder a few months ago, with some improvement of his shoulder pain since Follow up with orthopedics as scheduled (10) Insomnia: Code(s): G47.00 - Insomnia, unspecified Category: Medical Qualifiers: Insomnia type: primary Qualified Code(s): F51.01 - Primary insomnia Plan: Sleep hygiene reinforced Continue Trazodone 50 mg once a day as needed (11) Obesity (BMI 30-39.9): Code(s): E66.9 - Obesity, unspecified Category: Medical Plan: Reinforced diet/exercise as tolerated/lose weight Plan Follow-up in 3 months Orders: Orders Lipid Panel 3 Months E78.00 - Pure hypercholesterolemia, unspecified Microalbumin, Random (w Creat) 3 Months E11.9 - Type 2 diabetes mellitus without complications TSH reflex Free T4 3 Months E78.00 - Pure hypercholesterolemia, unspecified UA CC w/rflx Micro + Cult 3 Months R30.0 - Dysuria Vitamin B12 and Folate 3 Months E53.8 - Deficiency of other specified B group vitamins Complete Blood Count Auto Diff 3 Months D64.9 - Anemia, unspecified Comprehensive [place]. Panel Fast 3 Months E78.00 - Pure hypercholesterolemia, unspecified Hemoglobin A1c 3 Months E11.9 - Type 2 diabetes mellitus without complications Vitamin D 25-OH Total 3 Months E55.9 - Vitamin D deficiency, unspecified
== END 2024-05-07 14:11 | disposition home or self-care (01) ==
PROVIDERS: PCP Internal Medicine; Visit Provider Internal Medicine
DX: E11.29 Type 2 diabetes mellitus with other diabetic kidney complication (principal); R80.9 Proteinuria, unspecified; E66.9 Obesity, unspecified; Z68.30 Body mass index [BMI] 30.0-30.9, adult; I10 Essential (primary) hypertension; E78.00 Pure hypercholesterolemia, unspecified; E55.9 Vitamin D deficiency, unspecified; K21.9 Gastro-esophageal reflux disease without esophagitis; M51.360 Other intervertebral disc degeneration, lumbar region with discogenic back pain only; M19.011 Primary osteoarthritis, right shoulder; M75.32 Calcific tendinitis of left shoulder; F51.01 Primary insomnia

== ENCOUNTER → 2024-05-07 13:18 | Outpatient (BNVA) | payer OTHER, SELFPAY | PROVIDERS: PCP Internal Medicine; Visit Provider Internal Medicine | DX: E11.29 Type 2 diabetes mellitus with other diabetic kidney complication (principal); R80.9 Proteinuria, unspecified; I10 Essential (primary) hypertension; E78.00 Pure hypercholesterolemia, unspecified; E55.9 Vitamin D deficiency, unspecified; K21.9 Gastro-esophageal reflux disease without esophagitis; M51.360 Other intervertebral disc degeneration, lumbar region with discogenic back pain only; M19.011 Primary osteoarthritis, right shoulder; M75.32 Calcific tendinitis of left shoulder; F51.01 Primary insomnia; E66.9 Obesity, unspecified; Z68.30 Body mass index [BMI] 30.0-30.9, adult; Z71.3 Dietary counseling and surveillance | CPT/HCPCS: 96127; 99212 ==

== ENCOUNTER 2024-08-01 09:03 | Outpatient (REF) | payer OTHER, SELFPAY ==
[2024-08-01 09:25] LABS: MANUAL DIFF FLAG NO
[2024-08-01 09:43] LABS: Basophils Absolute Auto 0.1 X10*3/uL (0.0-0.2); Basophils Percent Auto 1.3 % (0-2); Eosinophils Absolute Auto 0.9 X10*3/uL (0.0-0.4); Eosinophils Percent Auto 13.1 % (0-4); Hematocrit 49.2 % (42.0-52.0); Hemoglobin 16.7 g/dl (14.0-18.0); Imm Gran Abs Auto 0.02 X10*3/uL (0.00-0.03); Imm Gran Pct Auto 0.3 % (0.0-0.4); Lymphocytes Absolute Auto 2.2 X10*3/uL (1.2-4.9); Lymphocytes Percent Auto 31.9 % (20-40); Mean Corpuscular HGB Conc 33.9 g/dl (31.0-36.0); Mean Corpuscular Hemoglobin 29.2 pg (27.0-33.0); Mean Platelet Volume 9.6 fL (9.4-12.4); Monocytes Absolute Auto 0.6 X10*3/uL (0.1-1.2); Monocytes Percent Auto 9.1 % (2-11); Neutrophils Absolute Auto 3.1 x10*3/uL (2.0-8.3); Neutrophils Percent Auto 44.3 % (45-73); Platelet Count 171 X10*3/uL (160-400); Red Blood Count 5.72 X10*6/uL (4.60-5.80)
[2024-08-01 09:49] LABS: Estimated Average Glucose 192 mg/dL; Hemoglobin A1c % 8.3 % (<6.0)
[2024-08-01 10:26] LABS: Appearance Urine Clear; Color Urine Yellow; Glucose Urine UA >=1000 mg/dL (Negative); Leukocyte Esterase Urine Negative (Negative); Nitrite Urine Negative (Negative); PH 5.5 (5.0-9.0); Specific Gravity - Urine >= 1.030 (1.005-1.025); UMIC TRIGGER UACC YES; Urine Blood Trace (Negative); Urine Ketones Negative (Negative); Urine Protein 100 (2+) mg/dL (Neg-Trace)
[2024-08-01 10:38] LABS: Bacteria Urine None Seen (None Seen); Hyaline Casts Urine 0-2 /LPF (0-2); RBC Urine 0-2 /HPF (0-2); Squamous Epithelial Cell Urine 0-2 /HPF (0-2); WBC Urine 0-5 /HPF (0-5)
[2024-08-01 10:44] LABS: Alanine Aminotransferase 28 U/L (0-40); Albumin Level 4.2 g/dL (3.5-5.0); Alkaline Phosphatase 64 U/L (39-117); Anion Gap 12 (12-20); Aspartate Amino Transferase 24 U/L (5-37); Bilirubin Total 0.7 mg/dL (0.0-1.0); Blood Urea Nitrogen 15 mg/dL (9-16); Calcium 9.6 mg/dL (8.4-10.2); Carbon Dioxide 28 mmol/L (22-29); Chloride 107 mmol/L (96-108); Cholesterol 185 mg/dL (<200); Estimated Glomerular Filt Rate > 60; Glucose Fasting 157 mg/dL (60-99); HDL Cholesterol 65 mg/dL (>40); LDL Cholesterol Calculated 105 mg/dL (<100); Potassium 4.5 mmol/L (3.3-5.1); Sodium 142 mmol/L (135-145); TSH reflex Free T4 0.83 uIU/mL (0.32-4.0); Total Protein 7.2 g/dL (6.5-8.0); Triglycerides 76 mg/dL (<150); Vitamin D 25-OH Total 32.5 ng/mL (>30)
[2024-08-01 10:49] LABS: Folate 14.7 ng/mL (> or = 4.0); Vitamin B12 606 pg/mL (200-900)
[2024-08-01 11:49] LABS: Creatinine Urine 61.65 mg/dL
[2024-08-01 12:12] LABS: Microalbum/Creatinine Ratio Ur 874.2 ug/mg cr (<30)
== END 2024-08-01 09:04 | disposition home or self-care (01) ==
LOC: HO.LAB 09:03
PROVIDERS: PCP Internal Medicine; Visit Provider Internal Medicine
DX: D64.9 Anemia, unspecified (principal); E78.00 Pure hypercholesterolemia, unspecified; E11.9 Type 2 diabetes mellitus without complications; E55.9 Vitamin D deficiency, unspecified; E53.8 Deficiency of other specified B group vitamins
CPT/HCPCS: 36415; 80053; 80061; 81001; 81003; 82043; 82306; 82570; 82607; 82746; 83036; 84443; 85025

== ENCOUNTER 2024-08-12 10:42 | Outpatient (AMB) | payer OTHER, SELFPAY ==
[2024-08-12 10:43] VITALS: BP 126/72; PULSE 53; O2SAT 98; BMI 30.3
--- NOTE | 2024-08-12 10:43 | MHC.PC.OV ---
Vital Signs 08/12/24 10:43 Height 5 ft 5 in Weight 182 lb 2 oz BMI 30.3 BP 126/72 Blood Pressure Location Lt brachial Position Sitting Pulse 53 Pulse Source Pulse Oximeter Pulse Oximetry (%) 98 Oxygen Delivery Method Room Air Intake Visit Reasons: 3 month f/u Outpatient Physical Therapist Assistant Required: No Accompanied by: Self / Same As Patient Allergies No Known Allergies Allergy (Verified 08/12/24 11:46) Medication List - Last Reconciled 08/12/24 by Raymond Machuca MD acetaminophen (Tylenol) 650 mg (2 x 325 mg) PO Q6H PRN [Adult pull ups (LARGE) As directed] amlodipine 10 mg PO DAILY 90 days atenolol 50 mg PO DAILY 90 days atorvastatin 80 mg PO DAILY celecoxib 200 mg PO BID cholecalciferol (vitamin D3) 50 mcg PO DAILY 90 days [diabetic shoe inserts As directed] [DIABETIC SHOES (1 pair) - size TBD based on patient As directed] diabetic supplies, miscellan. Diabetic shoes (1 pair) empagliflozin (Jardiance) 25 mg PO QAM 90 days [Freestyle joshua strips As directed] gabapentin 300 mg PO BID glipizide 5 mg PO BID hydralazine 25 mg PO BID hydrochlorothiazide 25 mg PO DAILY lidocaine 4% (Aspercreme (lidocaine)) 1 patch topical DAILY PRN losartan 100 mg PO DAILY meclizine 25 mg PO TID PRN metformin 1,000 mg PO BID omeprazole 20 mg PO DAILY PRN pioglitazone 30 mg PO DAILY 90 days Salonpas (lidocaine) 4% (lidocaine) 1 patch topical BID PRN NS tizanidine 4 mg PO Q8H PRN tizanidine 4 mg PO TID PRN trazodone 25 mg (1/2 x 50 mg) PO BEDTIME PRN Tobacco use date assessed: 08/12/24 Fall risk assessment: No Falls in past year Last assessed Fall Risk: 08/12/24 Dental Screening Dental Screen Date: 08/12/24 Did you have a dental visit in the last 12 months?: No Did you have a dental problem in the last 6 months where you did not have access to dental care?: No Was dental information given to patient?: No HPI 3 month f/u HPI Details Patient comes in today for his follow-up visit States that he feels okay He denies any headaches or dizziness Denies any chest pains, no SOB No nausea/vomiting, no abdominal pain No change in bowel habits noted He had his follow up labs done a couple of weeks ago - to discuss his results [facility] Medical History GERD without esophagitis Dermatitis Obesity (BMI 30-39.9) Insomnia Vitamin D deficiency Lumbar degenerative disc disease Complex regional pain syndrome type 2 of left upper extremity Primary osteoarthritis of right shoulder Benign essential hypertension Pure hypercholesterolemia Proteinuria, unspecified Type 2 diabetes mellitus with other diabetic kidney complication Hypercholesteremia Hypertension Diabetes type 2, controlled Surgical History History of colonoscopy Status post right rotator cuff repair Family History Mother CVD (cardiovascular disease) Father No problems noted. Social History Housing: Apartment Alcohol intake: current Alcohol intake frequency: a few times a month Alcohol type: beer Patient Tobacco Use Status: Former Tobacco user Tobacco use type: Cigarette e-Cigarette/Vaping Use: Never Used Second Hand Smoke Exposure: Yes service: No Current occupational status: retired Cognitive needs: Yes (cane) Hearing needs: No (Pt has an old pair of hearing aid. ) Vision needs: Yes Questionnaire PHQ-9 Over the last 2 weeks, how often have you been bothered by any of the following problems? 1. Little interest or pleasure in doing things: not at all 2. Feeling down, depressed, or hopeless: not at all 3. Trouble falling or staying asleep, or sleeping too much: nearly every day 4. Feeling tired or having little energy: not at all 5. Poor appetite or overeating: not at all 6. Feeling bad about yourself - or that you are a failure or have let yourself or your family down: not at all 7. Trouble concentrating on things, such as reading the newspaper or watching television: not at all 8. Moving or speaking so slowly that other people could have noticed. Or the opposite - being so fidgety or restless that you have been moving around a lot more than usual: not at all 9. Thoughts that you would be better off or of hurting yourself in some way: not at all Total score: 3 Depression Screening Interpretation: Negative Depression Screening Done: Yes 41221 - PHQ-9 Billing: Yes Source: Developed by Drs. Carmine Nguyen, Lee Ann Roblero, Jose An and colleagues, with an educational scout from [employer]. Thrive Questionnaire Date Thrive assessed: 08/12/24 I am a: Patient What is your living situation today?: I have a steady place to live Within the past 12 months, did the food you bought not last and you didn't have the money to get more?: Never true Within the past 12 months, did you worry whether your food would run out before you got money to buy more?: Never true Do you have trouble paying for medicines?: No Do you have trouble getting transportation to medical appointments?: No Do you have trouble paying your heating and electricity bill?: No Do you have trouble taking care of your child, family member or friend?: No Do you have trouble with day-to-day activities such as bathing, preparing meals, shopping, managing finances, etc.?: No Are you currently unemployed and looking for a job?: No Are you interested in more education?: No Please select the resources that you would like help with: None Currently or been in a relationship where the following occur: No concerns reported THRIVE Score: 0 AUDIT C Alcohol Use Questionnaire (AUDIT-C) 1. How often do you have a drink containing alcohol?: Never 3. How often do you have six or more drinks on one occasion?: Never Total Score: 0 Score Reviewed/Action Taken: Yes JACQUI-7 AMB Questionnaire JACQUI-7 Date JACQUI - 7 assessed: 08/12/24 Feeling nervous, anxious, or on edge: 0 = Not at all Not being able to stop or control worryin = Not at all Worrying too much about different things: 0 = Not at all Trouble relaxin = Not at all Being so restless that it is hard to sit still: 0 = Not at all Becoming easily annoyed or irritable: 0 = Not at all Feeling afraid as if something awful might happen: 0 = Not at all Total JACQUI-7 score (0-4 normal; 5-9 mild; 10-14 moderate; 15-21 severe): 0 Source: Developed by Drs. Carmine Nguyen, Lee Ann Roblero, Jose An and colleagues, with an educational scout from [employer]. Review of Systems Const Denies chills, Denies fatigue, Denies fever(s) and Denies headache(s) ENT Denies dysphagia, Denies dizziness, Denies otalgia, Denies headache(s), Denies neck pain, Denies odynophagia and Denies sore throat Card Denies chest pain, Denies palpitations and Denies dyspnea Resp Denies chest congestion, Denies cough and Denies dyspnea GI Denies abdominal pain, Denies constipation, Denies dysphagia, Denies heartburn, Denies diarrhea, Denies nausea, Denies odynophagia and Denies vomiting Denies hematuria, Denies dysuria, Reports nocturia and Reports urinary frequency Musc Reports back pain (over the lower back - chronic; (+) left-sided low back pain lately), Reports arthralgias (left shoulder - slightly better since cortisone injection 2 days ago) and Denies neck pain Skin/Breast Denies rash Neuro Denies dizziness and Denies headache(s) Endo Denies fatigue, Reports polydipsia, Reports polyuria and Denies palpitations Physical exam (Primary Care) Vital Signs: Last Vital Signs Pulse 53 08/12/24 10:43 BP 126/72 08/12/24 10:43 Pulse Ox 98 08/12/24 10:43 Oxygen Delivery Method Room Air 08/12/24 10:43 BMI result Body Mass Index 30.3 Tobacco/Smoking Status: Tobacco use Status Tobacco use date assessed 08/12/24 08/12/24 10:45 Patient Tobacco Use Status Former Tobacco user 08/12/24 10:45 Tobacco use type Cigarette 08/12/24 10:45 e-Cigarette/Vaping Use Never Used 08/12/24 10:45 PHQ-9: PHQ-9 Score PHQ-9: Total score 3 08/12/24 11:48 Depression Screening Interpretation: Negative Thrive Assessment: Date of Thrive Assessment Date Thrive assessed 08/12/24 08/12/24 10:45 Currently or been in a relationship where the following occur: No concerns reported Const General: no acute distress and alert HENMT Ears: TM's normal bilaterally and EAC's normal Throat: Yes posterior oropharynx normal and Yes tonsils normal (no TP congestion noted) Neck Neck: Yes supple and No lymphadenopathy Thyroid: Thyroid normal Resp Auscultation: clear to auscultation bilaterally, no rales and no wheezes Cardio Rate: regular rate Rhythm: regular rhythm Heart sounds: no murmurs GI Palpation (GI): Soft to palpation and nontender Auscultation: normal bowel sounds General: Yes no CVA tenderness Back/Spine/Pelvis Back: no CVA tenderness Thoracic/Lumbar Spine: lumbar spinal tenderness Skin Rashes: no rashes Extrem General: Yes no clubbing, cyanosis or edema Left upper extremity: shoulder/upper arm Details: tenderness Location: of the A-C joint; no swelling Results Reviewed Results Reviewed: Laboratory Tests 08/01/24 08/01/24 09:23 09:25 WBC 7.0 Hgb 16.7 Hct 49.2 Plt Count 171 Sodium 142 Potassium 4.5 Creatinine 0.90 Estimated GFR > 60 Fasting Glucose 157 H Hemoglobin A1c % 8.3 H Calcium 9.6 AST 24 ALT 28 Triglycerides 76 Cholesterol 185 LDL Cholesterol, Calc 105 H HDL Cholesterol 65 Vitamin B12 606 25-OH Vitamin D Total 32.5 TSH 0.83 Ur Specific Hamer >= 1.030 H Urine Protein 100 (2+) H Urine Glucose (UA) >=1000 H Urine Blood Trace H Urine Nitrite Negative Ur Leukocyte Esterase Negative Microalb/Creat Ratio 874.2 H Coding Level of Care Code Est Pt Level 4 (72620) Complex EM visit Add On G2211 Diagnoses Type 2 diabetes mellitus with other diabetic kidney complication E11.29 Proteinuria, unspecified type R80.9 Proteinuria type: unspecified Benign essential hypertension I10 Pure hypercholesterolemia E78.00 Vitamin D deficiency E55.9 GERD without esophagitis K21.9 Degeneration of intervertebral disc of lumbar region with discogenic back pain M51.360 Disc-related pain type: discogenic back pain only Primary osteoarthritis of right shoulder M19.011 Calcific tendinitis of left shoulder M75.32 Primary insomnia F51.01 Insomnia type: primary Obesity (BMI 30-39.9) E66.9 Additional Codes PHQ-9 - 55509 - PHQ-9 Billing: Yes ([id number]) Assessment & Plan Assessment & Plan (1) Type 2 diabetes mellitus with other diabetic kidney complication: Code(s): E11.29 - Type 2 diabetes mellitus with other diabetic kidney complication Category: Medical Plan: His HgbA1c was at 8.3% on his labs done a couple of weeks ago (was previously at 8.8% a few months ago) - goal is < 7.0% Reinforced diabetic diet Continue Metformin 1000 mg BID, Jardiance 25 mg Q AM, Pioglitazone 30 mg QD and Glipizide 5 mg BID Will start him additionally on Ozempic 0.25 mg SQ once a week Follow up with [facility] as scheduled (2) Proteinuria, unspecified: Code(s): R80.9 - Proteinuria, unspecified Category: Medical Qualifiers: Proteinuria type: unspecified Qualified Code(s): R80.9 - Proteinuria, unspecified Plan: Will continue to monitor his renal function regularly Patient is reminded again that his proteinuria will continue to progress and get worse if his diabetes is not adequately controlled (3) Benign essential hypertension: Code(s): I10 - Essential (primary) hypertension Category: Medical Plan: Reinforced low-sodium diet -? goal is systolic BP of at least 130 to 140 mm or less Continue Losartan 100 mg QD, Hydrochlorothiazide 25 mg QD, Amlodipine 10 mg QD, Atenolol 50 mg QD and Hydralazine 25 mg BID (4) Pure hypercholesterolemia: Code(s): E78.00 - Pure hypercholesterolemia, unspecified Category: Medical Plan: Results of his labs done a couple of weeks ago reviewed and discussed with patient Reinforced low cholesterol diet Continue Atorvastatin 80 mg QD Will recheck his labs and fasting lipids in 3 months for follow up (5) Vitamin D deficiency: Code(s): E55.9 - Vitamin D deficiency, unspecified Category: Medical Plan: Continue Vitamin D3 2000 units QD (6) GERD without esophagitis: Code(s): K21.9 - Gastro-esophageal reflux disease without esophagitis Category: Medical Plan: Dietary restrictions reinforced Continue Omeprazole 20 mg QD (7) Lumbar degenerative disc disease: Code(s): M51.36 - Other intervertebral disc degeneration, lumbar region Category: Medical Qualifiers: Disc-related pain type: discogenic back pain only Qualified Code(s): M51.360 - Other intervertebral disc degeneration, lumbar region with discogenic back pain only Plan: Reinforced activity and weight lifting restrictions Abdominal / pelvic CT done a few months ago revealed (+) degenerative disc disease, with mild canal stenosis and moderate bilateral neural foraminal stenosis at L4-L5, with no acute fracture or subluxation Continue Percocet 5-325 mg 1 tablet every 6-8 hours as needed and Gabapentin 300 mg BID (8) Primary osteoarthritis of right shoulder: Code(s): M19.011 - Primary osteoarthritis, right shoulder Category: Medical Plan: MRI of the right shoulder done last year showed (+)? tendinosis, large subacromial spur, OA changes as well as a posterior labral tear in the shoulder Patient underwent right rotator cuff repair with some improvement of his symptoms Follow-up with Orthopedics as scheduled (9) Calcific tendinitis of left shoulder: Code(s): M75.32 - Calcific tendinitis of left shoulder Category: Medical Plan: X-rays of the left shoulder done back in April 2023 revealed (+) calcific tendinitis of the shoulder He received cortisone injection into his left shoulder a few months ago, with some improvement of his shoulder pain since Follow up with orthopedics as scheduled (10) Insomnia: Code(s): G47.00 - Insomnia, unspecified Category: Medical Qualifiers: Insomnia type: primary Qualified Code(s): F51.01 - Primary insomnia Plan: Sleep hygiene reinforced Continue Trazodone 50 mg once a day as needed (11) Obesity (BMI 30-39.9): Code(s): E66.9 - Obesity, unspecified Category: Medical Plan: Reinforced diet/exercise as tolerated/lose weight Plan Follow-up in 3 months Orders: Orders Lipid Panel 3 Months E78.00 - Pure hypercholesterolemia, unspecified UA CC w/rflx Micro + Cult 3 Months R30.0 - Dysuria Vitamin B12 and Folate 3 Months E53.8 - Deficiency of other specified B group vitamins Complete Blood Count Auto Diff 3 Months D64.9 - Anemia, unspecified Comprehensive [place]. Panel Fast 3 Months E78.00 - Pure hypercholesterolemia, unspecified Microalbumin, Random (w Creat) 3 Months E11.9 - Type 2 diabetes mellitus without complications Hemoglobin A1c 3 Months E11.9 - Type 2 diabetes mellitus without complications TSH reflex Free T4 3 Months E78.00 - Pure hypercholesterolemia, unspecified Vitamin D 25-OH Total 3 Months E55.9 - Vitamin D deficiency, unspecified Medications: New semaglutide (Ozempic) 0.25 mg (0.368 mL) subcut QWEEK 3 mL 1RF type 2 diabetes 4 weeks E11.29 - Type 2 diabetes mellitus with other diabetic kidney complication
--- OUTSIDE RECORDS SUMMARY | 2024-08-12 12:40 | XMS_ITS | Clinical Summary ---
Author Organization [facility] Address [address] [place] [address] Care Team Providers Care Nursery Nurse Name Role Phone Unavailable Primary Care Provider Unavailabl e Source Comments PLEASE NOTE, if this patient is a minor, it may be UNLAWFUL to discuss sensitive information that is contained in these records (such as FAMILY PLANNING, MENTAL HEALTH or SUBSTANCE ABUSE) with the minor patient's parent or other person without the patient's specific authorization.[facility] Social History Tobacco Use Types Packs/Day Years Used Date Smoking Tobacco: Never Assessed Social Connections Answer Date Recorded Connectedness 0 01/19/2024 Financial Resource Strain Answer Date R ecorded Financial Resource Strain 0 2021 Stress Answer Date Recorded Stress 0 08/18/2021 Physical Activity Answer Date Recorded Physical Activity 0 08/18/2021 Food Insecurity Answer Date Recorded Food 0 02/01/2024 Transportation Needs Answer Date Record ed Transportation 0 08/18/2021 Housing Stability Answer Date Recorded Housing 0 08/18/2021 Safety and Environment Answer Date Anuj rded Safety 0 08/18/2021 Utilities Answer Date Recorded Utilities 0 08/18/2021 Employment Answer Date Recorded Stress 0 01/19/2024 Sex and Gender Information Value Date Recorded Sex Assigned at Not on file Legal Sex Male 6:15 AM PST Gender Identity Not on file Sexual Orientation Not on file Plan of Treatment Health Maintenance Due Date Last Done Comments Dental Prophy 1950 Hepatitis C Screening 1950 Tobacco Screening 1950 Hypertension Screening (#1) 1966 Medicare Annual Wellness Visit 1966 Imm-DTaP/Tdap/Td (1 - Tdap) 07/16/1967 Imm-Pneumococcal 65+ (1 of 1 - PCV) 1998 Imm-Zoster, Recombinant (1 of 2) 1998 Falls Prevention 2013 [id number] (1 - season) 2024 Imm-Influenza (#1) 2024 Alcohol and Drug Screen 05/08/2024 Depression Annual Screen 05/08/2024 Insurance [facility]
--- OUTSIDE RECORDS SUMMARY | 2024-08-12 12:40 | XMS_ITS | Continuity of Care Document ---
Author Organization [facility] [address] [facility] [address] [place] [address] Phone [phone] Care Team Providers Care Cognos Bi Developer Name Role Phone Raymond Machuca Care Team Information Metal Forger'S Assistant [phone] Problems Active Problems Provider Date Type 2 [...] SIG Qnty Indications Order ing Provider Date Mthczitvo77mc Tablets Take 1 Tablet By Mouth Every Morning For 90 Days 90tabs Kevan Cunningham M.D. 03/08/2024 Onetouch VerioStrips use 1 strip via meter three times daily Dx: E11.9 300units E11.8 Kevan Cunningham M.D. 11/06/2023 Ninjwnuee6rq Tablets 1 tablet by mouth twice daily 180tabs Kevan Cunningham M.D. 08/01/2023 Onetouch Verio Reflectw/Device Kit use to test glucose 1 time a day 1units Kevan Cunningham M.D. 08/01/2023 Oucbolwjaa66vj Tablets 1 tablet by mouth every day 90tabs Kevan Cunningham M.D. 08/01/2023 Tizanidine HCL4mg Tablets Take 1 Tablet By Mouth Every 8 Hours as Needed For Muscle Spasticity Sven, Raymond Atorvastatin Necisjn44wg Tablets Take 1 Tablet By Mouth Every Day Sven, Raymond Pioglitazone VRY91ps Tablets Take 1 Tablet By Mouth Every Day Sven, Raymond Msdzqqactb17ip Capsules DR Take 1 Capsule By Mouth Daily as Needed For Acid Reflux Svne, Raymond Evfmlcvya611du Capsules Take 1 Capsule By Mouth Twice A Day For 30 Days Julio Olson PA Oeanlzoe11em Tablets Take 1 Tablet By Mouth Every Day For 90 Days Sven, Raymond Vital Signs Date Vital Result Comment 03/08/2024 2:28pm BP Systolic 130 mmHg BP Diastolic 80 mmHg Heart Rate 72 /min Height 65 inches 5'5 Weight 179.00 lb BMI (Body Mass Index) 29.8 kg/m2 Results Test Acquired Date Facility Test Result H/L Range N ote Glucose Fingerstick 03/08/2024 Inhouse Glucose Fingerstick 156 Hemoglobin A1c 03/08/2024 Inhouse Hemoglobin A1c 8.3 Hemoglobin A1c 08/01/2023 Inhouse Hemoglobin A1c 10.4% Glucose Fingerstick 08/01/2023 Inhouse Glucose Fingerstick 418 Procedures Date Code Description Status 06/19/2024 NSHOWOFF No Show Office Visit Complet ed 09/12/2023 NSHOWOFF No Show Office Visit Complet ed Medical Devices Description No Information Available Encounters Type Date Location Provider Dx Diagnosis Office Visit 03/08/2024 2:30p Main Office Kevan Cnuningham M.D. E11.8 Type 2 diabetes mellitus with unspecified complications Assessments Date Code Description Provider 03/08/2024 E11.8 Type 2 diabetes mellitus with unspecified complications Kevan Cunningham M.D. Plan of Treatment 03/08/2024 - Kevan Cunningham M.D.* E11.8 Type [...]
--- OUTSIDE RECORDS SUMMARY | 2024-08-12 12:40 | XMS_ITS | Encounter Summary ---
Author Organization [facility] Address [address] [place] [address] Care Team Providers Care Chief Client Officer Name Role Phone Unavailable Primary Care Provider Unavailabl e Encounter Details Date Type Department Care Team (Late st Contact Info) Description 11/23/2021 Dental Interim Note [facility] [address] [place] [address] Hanna Sepulveda Y [address] [place] [address] Social History Tobacco Use Types Packs/Day Years Used Date Smoking Tobacco: Never Assessed Social Connections Answer Date Recorded Social Connections and Isolation 0 08/18/2021 Financial Resource Strain Answer Date R ecorded Financial Resource Strain 0 2021 Stress Answer Date Recorded Stress 0 08/18/2021 Physical Activity Answer Date Recorded Physical Activity 0 08/18/2021 Food Insecurity Answer Date Recorded Food 0 08/18/2021 Transportation Needs Answer Date Record ed Transportation 0 08/18/2021 Housing Stability Answer Date Recorded Housing 0 08/18/2021 Safety and Environment Answer Date Anuj rded Safety 0 08/18/2021 Utilities Answer Date Recorded Utilities 0 08/18/2021 Employment Answer Date Recorded Employment 0 08/18/2021 Sex and Gender Information Value Date Recorded Sex Assigned at Not on file Legal Sex Male 6:15 AM PST Gender Identity Not on file Sexual Orientation Not on file documented as of this encounter Plan of Treatment Not on file documented as of this encounter Visit Diagnoses Not on filedocumented in this encounter
--- OUTSIDE RECORDS SUMMARY | 2024-08-12 12:40 | XMS_ITS | Patient Health Record ---
Author Organization [facility] Address [address] [place] [address] Care Team Providers Care Cell Attendant Name Role Phone Sven NELSON, [place] Primary Care Provider UnaShelli Mendieta Unavailable [phone] Reason For Referral No Information Plan Of Treatment No Information Insurance Providers Payer Name Payer Address Payer Phone Subscriber Number Group Number Insured Name Patient Relationship to Insured Coverage Start Date Coverage End Date [facility] [employer] Claims [address] [place] [id number] [phone] [id number] Benito Martin Self - patient is the insured
--- OUTSIDE RECORDS SUMMARY | 2024-08-12 12:40 | XMS_ITS | Clinical Summary ---
Author Organization [employer] [facility] it Address [address] [place] [address] Care Team Providers Care Clay Roaster Name Role Phone Raymond Machuca MD Primary Care Provider Social History Tobacco Use Types Packs/Day Years Used Date Smoking Tobacco: Never Assessed Sex and Gender Information Value Date Recorded Sex Assigned at Not on file Legal Sex Male 4:29 AM EST Gender Identity Not on file Sexual Orientation Not on file Plan of Treatment Health Maintenance Due Date Last Done Comments Diabetes: Annual GFR (Glomer ular Filtration Rate) 1948 Diabetes: Annual Foot Exam 1958 Diabetes: Annual Retina Eye Exam 1958 Pneumococcal Vaccine: 50+ Ye ars (1 of 1 - PCV) 1998 Zoster Vaccines (1 of 2) 1998 Cholesterol Screening (Lipid Panel) 04/10/2022 Depression Screening 04/10/2022 Falls Risk Assessment 04/10/2022 Hepatitis C Screening 04/10/2022 Social Influencers of Health Screening 04/10/2022 Hypertension/CHF/CAD Annual BMP Blood Test 04/20/2022 Diabetes: Annual Urine Albumin-Creatinine Ratio (uACR) 04/23/2022 Diabetes: Blood Sugar Contro l Test (HGBA1C) 04/23/2022 RSV Immunization Adult Patie nts (1 - 1-dose 75+ series) 07/16/2023 COVID-19 Vaccine ( - 2023-2 5 season) 2024 Influenza Vaccine (#1) 2024 DTaP,Tdap,and Td Vaccines (2 - Td or Tdap) 11/23/2025 11/24/2015 HIB Vaccines Aged Out No longer eligi ble based on patient's age to complete this topic HPV Vaccines Aged Out No longer eligi ble based on patient's age to complete this topic Hepatitis A Vaccines Aged Out No long er eligible based on patient's age to complete this topic Hepatitis B Vaccines Aged Out No long er eligible based on patient's age to complete this topic IPV Vaccines Aged Out No longer eligi ble based on patient's age to complete this topic MMR Vaccines Aged Out No longer eligi ble based on patient's age to complete this topic Meningococcal ACWY Vaccine Aged Out N o longer eligible based on patient's age to complete this topic Meningococcal B Vacine Aged Out No lo nger eligible based on patient's age to complete this topic RSV Immunization Patients Un ifeanyi 20 months Aged Out No longer eligible b ased on patient's age to complete this topic Varicella Vaccines Aged Out No longer eligible based on patient's age to complete this topic Care Teams Clay Roaster Relationship Specialty Start Date End Date Raymond Machuca MD [address] [place] [address] [address] [place] PCP - General Internal Medicine 05/08/12
--- OUTSIDE RECORDS SUMMARY | 2024-08-12 12:40 | XMS_ITS ---
Author Organization [facility] Address [address] [place] [id number] Care Team Providers Care Election Judge Name Role Phone Sven NELSON, Raymond Primary Care Provider Unava ilShelli Kim Unavailable [phone] Encounters Encounter Location Date Provider Diagnosis [address] [id number] 03/04/2024 Shelli Ralph Plan Of Treatment No Information Progress Notes * Benito THOMASDOB:1950 ( 74 yo M)Acc No.[id number]:03/04/2024 Progress Notes Patient:?Benito THOMAS Provider:?Shelli Ralph DPM :1950???Age:73 Y???Sex:Male Jay e:03/04/2024 Address:[address] [place], [place] [id number] Pcp:Raymond Machuca MD Subjective: * Chief Complaints: [...] Ralph DPM Date:? Generated for Rebecca cohen/Maycol/eTransmitting on:?08/12/2024 12:39 PM EDT
== END 2024-08-12 12:01 | disposition home or self-care (01) ==
LOC: HO.HMCH 10:42
PROVIDERS: PCP Internal Medicine; Visit Provider Internal Medicine
DX: E11.29 Type 2 diabetes mellitus with other diabetic kidney complication (principal); R80.9 Proteinuria, unspecified; Z68.30 Body mass index [BMI] 30.0-30.9, adult; E66.9 Obesity, unspecified; I10 Essential (primary) hypertension; E78.00 Pure hypercholesterolemia, unspecified; E55.9 Vitamin D deficiency, unspecified; K21.9 Gastro-esophageal reflux disease without esophagitis; M51.360 Other intervertebral disc degeneration, lumbar region with discogenic back pain only; M19.011 Primary osteoarthritis, right shoulder; M75.32 Calcific tendinitis of left shoulder; F51.01 Primary insomnia

== ENCOUNTER → 2024-08-12 10:42 | Outpatient (BNVA) | payer OTHER, SELFPAY | PROVIDERS: PCP Internal Medicine; Visit Provider Internal Medicine | DX: E11.29 Type 2 diabetes mellitus with other diabetic kidney complication (principal); E78.00 Pure hypercholesterolemia, unspecified; I10 Essential (primary) hypertension; E55.9 Vitamin D deficiency, unspecified; K21.9 Gastro-esophageal reflux disease without esophagitis; M51.360 Other intervertebral disc degeneration, lumbar region with discogenic back pain only; M19.011 Primary osteoarthritis, right shoulder; M75.32 Calcific tendinitis of left shoulder; F51.01 Primary insomnia; E66.9 Obesity, unspecified; Z68.30 Body mass index [BMI] 30.0-30.9, adult; Z71.3 Dietary counseling and surveillance | CPT/HCPCS: 96127; 99212 ==

== ENCOUNTER → 2024-08-20 09:07 | Outpatient (BNVA) | payer OTHER, SELFPAY | PROVIDERS: PCP Internal Medicine; Visit Provider Internal Medicine ==

== ENCOUNTER → 2024-08-27 09:46 | Outpatient (BNVA) | payer OTHER, SELFPAY | PROVIDERS: PCP Internal Medicine; Visit Provider Internal Medicine ==

== ENCOUNTER 2024-11-13 14:03 | Emergency (ER) | payer OTHER, SELFPAY ==
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
[2024-11-13 14:27] VITALS: BP 133/74; PULSE 76; RESP 16; TEMP 37; O2SAT 98; BMI 30.1
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
== END 2024-11-13 16:32 | disposition home or self-care (01) ==
LOC: HO.ED 16:24
PROVIDERS: Emergency Provider Emergency Medicine; PCP Internal Medicine
DX: S16.1XXA Strain of muscle, fascia and tendon at neck level, initial encounter (principal); S39.012A Strain of muscle, fascia and tendon of lower back, initial encounter; R51.9 Headache, unspecified; M54.2 Cervicalgia; V43.52XA Car driver injured in collision with other type car in traffic accident, initial encounter; Y93.9 Activity, unspecified; Y92.410 Unspecified street and highway as the place of occurrence of the external cause; Y99.8 Other external cause status; Z79.899 Other long term (current) drug therapy; Z87.891 Personal history of nicotine dependence
CPT/HCPCS: 70450; 72100; 72125; 99281; 99284

== ENCOUNTER → 2024-11-13 14:34 | Outpatient (BNV) | payer OTHER, SELFPAY | PROVIDERS: PCP Internal Medicine; Visit Provider Radiology Diagnostic Radiology | DX: M47.812 Spondylosis without myelopathy or radiculopathy, cervical region (principal); R51.9 Headache, unspecified; M54.50 Low back pain, unspecified; V89.2XXA Person injured in unspecified motor-vehicle accident, traffic, initial encounter | CPT/HCPCS: 70450; 72100; 72125 ==

== ENCOUNTER 2024-11-15 18:36 | Emergency (ER) | payer OTHER, SELFPAY ==
[2024-11-15 18:51] VITALS: BP 125/62; PULSE 58; RESP 16; TEMP 36.2; O2SAT 98; BMI 30.4
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
--- OUTSIDE RECORDS SUMMARY | 2024-11-15 19:06 | XMS_ITS | Clinical Summary ---
Author Organization [facility] Address [address] [place] [address] Phone Care Team Providers Care Physician Ophthalmologist Name Role Phone Raymond Machuca MD Primary Care Provider [phone] Social History Tobacco Use Types Packs/Day Years Used Date Smoking Tobacco: Never Assessed Sex and Gender Information Value Date Recorded Sex Assigned at Not on file Legal Sex Male 4:29 AM EST Gender Identity Not on file Sexual Orientation Not on file Plan of Treatment Upcoming Encounters Date Type Department Care Team ([facility] Contact Info) Description 01/16/2025 1:45 PM EDT Office Visit Orthopedic Surgery [place] [id number] [phone] Maximino Marinelli DPM [address] [address] Health Maintenance Due Date Last Done Comments Diabetes: Annual GFR (Glomer ular Filtration Rate) 1948 Diabetes: Annual Foot Exam 1958 Diabetes: Annual Retina Eye Exam 1958 Pneumococcal Vaccine: 50+ Ye ars (1 of 2 - PCV) 07/16/1967 Zoster Vaccines (1 of 2) 1998 Cholesterol Screening (Lipid Panel) 04/10/2022 Depression Screening 04/10/2022 Falls Risk Assessment 04/10/2022 Hepatitis C Screening 04/10/2022 Social Influencers of Health Screening 04/10/2022 Hypertension/CHF/CAD Annual BMP Blood Test 04/20/2022 Diabetes: Annual Urine Albumin-Creatinine Ratio (uACR) 04/23/2022 Diabetes: Blood Sugar Contro l Test (HGBA1C) 04/23/2022 RSV Immunization Adult Patie nts (1 - 1-dose 75+ series) 07/16/2023 COVID-19 Vaccine (1 - 2023-2 5 season) 2024 Influenza Vaccine (#1) 2025 DTaP,Tdap,and Td Vaccines (2 - Td or [...] age to complete this topic Meningococcal B Vaccine Aged Out No l onger eligible based on patient's age to complete this topic RSV Immunization Patients Un ifeanyi 20 months Aged Out No longer eligible b ased on patient's age to complete this topic Varicella Vaccines Aged Out No longer eligible based on patient's age to complete this topic Care Teams Physician Ophthalmologist Relationship Specialty Start Date End Date Raymond Machuca MD [address] [place] [address] Dr [address] KIMBERLEE Sol PCP - General Internal Medicine 05/08/12
--- OUTSIDE RECORDS SUMMARY | 2024-11-15 19:06 | XMS_ITS | Patient Health Record ---
Author Organization [facility] Address [address] [place] [address] Care Team Providers Care Stippler Name Role Phone Sven NELSON, [place] Primary Care Provider UnaShelli Mendieta Unavailable [phone] Reason For Referral No Information Plan Of Treatment No Information Insurance Providers Payer Name Payer Address Payer Phone Subscriber Number Group Number Insured Name Patient Relationship to Insured Coverage Start Date Coverage End Date [facility] SCO Claims [address] [place] [id number] [phone] [id number] Benito Martin Self - patient is the insured
--- OUTSIDE RECORDS SUMMARY | 2024-11-15 19:06 | XMS_ITS | Continuity of Care Document ---
Author Organization [facility] [address] [facility] [address] [place] [address] Phone [phone] Care Team Providers Care Principal Programmer Name Role Phone Raymond Machuca Care Team Information Veterinary Medicine Doctor [phone] Problems Active Problems Provider Date Type 2 [...] Social History Type Date Description Comments Sex Male Sex Unknown ETOH Use Occasionally consumes beer Tobacco Use Start: Unknown End: Unknown Patient is a former smoker Allergies and adverse reactions Description No Known Drug Allergies Medications Active Medications SIG Qnty Indications Order ing Provider Date Poppbdpri95ce Tablets Take 1 Tablet By Mouth Every Morning For 90 Days 90tabs Kevan Cunningham M.D. 03/08/2024 Onetouch VerioStrips use 1 strip via meter three times daily Dx: E11.9 300units E11.8 Kevan Cunningham M.D. 11/06/2023 Fmmvipzeq6uj Tablets 1 tablet by mouth twice daily 180tabs Kevan Cunningham M.D. 08/01/2023 Onetouch Verio Reflectw/Device Kit use to test glucose 1 time a day 1units Kevan Cunningham M.D. 08/01/2023 Zkqeuhjmhg02gc Tablets 1 tablet by mouth every day 90tabs Kevan Cunningham M.D. 08/01/2023 Tizanidine HCL4mg Tablets Take 1 Tablet By Mouth Every 8 Hours as Needed For Muscle Spasticity Sven, Raymond Atorvastatin Zeotkim74kh Tablets Take 1 Tablet By Mouth Every Day Sven, Raymond Pioglitazone VHB31wa Tablets Take 1 Tablet By Mouth Every Day Sven, Raymond Ilpxvcjeuy74uk Capsules DR Take 1 Capsule By Mouth Daily as Needed For Acid Reflux Sven, [place] Echueydfj588wa Capsules Take 1 Capsule By Mouth Twice A Day For 30 Days Julio Olson PA Baixmiad58vh Tablets Take 1 Tablet By Mouth Every [...]
--- NOTE | 2024-11-15 19:45 | PC.NURSE ---
discharge by provider.
== END 2024-11-15 19:45 | disposition home or self-care (01) ==
LOC: HO.ED 19:04
PROVIDERS: Emergency Provider Emergency Medicine; PCP Internal Medicine
DX: R51.9 Headache, unspecified (principal); S16.1XXA Strain of muscle, fascia and tendon at neck level, initial encounter; V49.9XXA Car occupant (driver) (passenger) injured in unspecified traffic accident, initial encounter; Y93.9 Activity, unspecified; Y92.410 Unspecified street and highway as the place of occurrence of the external cause; Y99.9 Unspecified external cause status
CPT/HCPCS: 99281; 99283

== ENCOUNTER 2024-11-17 03:45 | Emergency (ER) | payer OTHER, SELFPAY ==
[2024-11-17 03:46] VITALS: BP 145/70; PULSE 66; RESP 20; TEMP 36.6; O2SAT 98; BMI 30.1
--- OUTSIDE RECORDS SUMMARY | 2024-11-17 04:04 | XMS_ITS | Clinical Summary ---
Author Organization 175 [facility] Address [address] [place] [address] Phone Care Team Providers Care Peer Educator Name Role Phone Raymond Machuca MD Primary Care Provider Social History Tobacco Use Types Packs/Day Years Used Date Smoking Tobacco: Never Assessed Sex and Gender Information Value Date Recorded Sex Assigned at Not on file Legal Sex Male 4:29 AM EST Gender Identity Not on file Sexual Orientation Not on file Plan of Treatment Upcoming Encounters Date Type Department Care Team ([facility] Contact Info) Description 01/16/2025 1:45 PM EDT Office Visit Orthopedic Surgery [place] [id number] [phone] Maximino Marinelli DPM [address] [address] Health Maintenance Due Date Last Done Comments [...] age to complete this topic Care Teams Peer Educator Relationship Specialty Start Date End Date Raymond Machuca MD [address] [place] [address] Dr [address] KIMBERLEE Sol PCP - General Internal Medicine 05/08/12
--- OUTSIDE RECORDS SUMMARY | 2024-11-17 04:04 | XMS_ITS | Continuity of Care Document ---
Author Organization [facility] 2 [facility] [address] [place] [address] Phone [phone] Care Team Providers Care Styrene Dehydration Reactor Operator Name Role Phone Raymond Machuca Care Team Information Valet Manager [phone] Problems Active Problems Provider Date Type 2 [...] SIG Qnty Indications Order ing Provider Date Lsielcutd48wr Tablets Take 1 Tablet By Mouth Every Morning For 90 Days 90tabs Kevan Cunningham M.D. 03/08/2024 Onetouch VerioStrips use 1 strip via meter three times daily Dx: E11.9 300units E11.8 Kevan Cunningham M.D. 11/06/2023 Jvscgdzlm8vq Tablets 1 tablet by mouth twice daily 180tabs Kevan Cunningham M.D. 08/01/2023 Onetouch Verio Reflectw/Device Kit use to test glucose 1 time a day 1units Kevan Cunningham M.D. 08/01/2023 Fnlwogkdpl63sr Tablets 1 tablet by mouth every day 90tabs Kevan Cunningham M.D. 08/01/2023 Tizanidine HCL4mg Tablets Take 1 Tablet By Mouth Every 8 Hours as Needed For Muscle Spasticity Sven, Raymond Atorvastatin Dxptrtb25wm Tablets Take 1 Tablet By Mouth Every Day Sven, Raymnod Pioglitazone GYC06db Tablets Take 1 Tablet By Mouth Every Day Sven, Raymond Avdlotmqrg97oi Capsules DR Take 1 Capsule By Mouth Daily as Needed For Acid Reflux Sven, [place] Oykcnodnz151cb Capsules Take 1 Capsule By Mouth Twice A Day For 30 Days Julio Olson PA Xzjfwxas98ik Tablets Take 1 Tablet By Mouth Every [...]
--- OUTSIDE RECORDS SUMMARY | 2024-11-17 04:04 | XMS_ITS | Patient Health Record ---
Author Organization [facility] Address [address] [place] [address] Care Team Providers Care Tool And Gauge Inspector Name Role Phone Sven NELSON, [place] Primary Care Provider UnaShelli Mendieta Unavailable [phone] Reason For Referral No Information Plan Of Treatment No Information Insurance Providers Payer Name Payer Address Payer Phone Subscriber Number Group Number Insured Name Patient Relationship to Insured Coverage Start Date Coverage End Date [facility] SCO Claims [address] [place] [id number] [phone] [id number] Benito Martin Self - patient is the insured
--- NOTE | 2024-11-17 05:20 | PC.NURSE ---
Patient reports 10/10 pain in left ear. This RN offered to patient Tylenol 100 mg PO, patient declined Tylenol at this time.
--- NOTE | 2024-11-17 06:04 | PC.NURSE ---
This RN noticed that patient was walking to the ED exit door stating that he did not expect to take that long to be seen by the doctor and requested to leave. This RN attempted to redirect patient back to ED room, patient refused stating he wast to leave now. Patient left ED without being seen by ED provider.
== END 2024-11-17 06:11 | disposition left against medical advice (07) ==
PROVIDERS: Emergency Provider Emergency Medicine
DX: H92.02 Otalgia, left ear (principal)
CPT/HCPCS: 99281; 99284

== ENCOUNTER 2024-12-10 09:18 | Outpatient (REF) | payer OTHER, SELFPAY ==
[2024-12-10 09:35] LABS: MANUAL DIFF FLAG NO
--- OUTSIDE RECORDS SUMMARY | 2024-12-10 09:40 | XMS_ITS | Patient Health Record ---
Author Organization [facility] Address [address] [place] [address] Care Team Providers Care Acquisition Editor Name Role Phone Sven NELSON, [place] Primary Care Provider UnaShelli Mendieta Unavailable [phone] Reason For Referral No Information Plan Of Treatment No Information Insurance Providers Payer Name Payer Address Payer Phone Subscriber Number Group Number Insured Name Patient Relationship to Insured Coverage Start Date Coverage End Date [facility] SCO Claims [address] [place] [id number] [phone] [id number] Benito Martin Self - patient is the insured
--- OUTSIDE RECORDS SUMMARY | 2024-12-10 09:40 | XMS_ITS | Continuity of Care Document ---
Author Organization [facility] 2 [facility] [address] [place] [address] Phone [phone] Care Team Providers Care Ssis Developer Name Role Phone Raymond Machuca Care Team Information Tool Engineer [phone] Problems Active Problems Provider Date Type 2 [...] SIG Qnty Indications Order ing Provider Date Nxnqmehyf22tl Tablets Take 1 Tablet By Mouth Every Morning For 90 Days 90tabs Kevan Cunningham M.D. 03/08/2024 Onetouch VerioStrips use 1 strip via meter three times daily Dx: E11.9 300units E11.8 Kevan Cunningham M.D. 11/06/2023 Moixzczrs7wp Tablets 1 tablet by mouth twice daily 180tabs Kevan Cunningham M.D. 08/01/2023 Onetouch Verio Reflectw/Device Kit use to test glucose 1 time a day 1units Kevan Cunningham M.D. 08/01/2023 Ereenderna22fl Tablets 1 tablet by mouth every day 90tabs Kevan Cunningham M.D. 08/01/2023 Tizanidine HCL4mg Tablets Take 1 Tablet By Mouth Every 8 Hours as Needed For Muscle Spasticity Sven, Raymond Atorvastatin Siezmqf03hz Tablets Take 1 Tablet By Mouth Every Day Sven, Raymond Pioglitazone PFU52fl Tablets Take 1 Tablet By Mouth Every Day Sven, Raymond Uarwonqivq95lu Capsules DR Take 1 Capsule By Mouth Daily as Needed For Acid Reflux Sven, [place] Hbujfphda999mb Capsules Take 1 Capsule By Mouth Twice A Day For 30 Days Julio Olson PA Zvlggicv80af Tablets Take 1 Tablet By Mouth Every [...]
--- OUTSIDE RECORDS SUMMARY | 2024-12-10 09:40 | XMS_ITS | Clinical Summary ---
Author Organization [address] [facility] Address [address] [place] [address] Phone Care Team Providers Care Pump Operator Byproducts Name Role Phone Raymond Machuca MD Primary Care Provider Medications cyclobenzaprine (FLEXERIL) 10 mg tabletIndication s:Spasm of left trapezius muscle Take 1 tablet (10 mg total) by mouth 3 (three) times a day if needed for muscle spasms for up to 10 days. 15 tablet 11/17/2024 Active Encounters Date Type Department Care Team Description 11/17/2024 5:52 AM EDT - 11/17/2024 6:45 AM EDT Emergency [facility] Emergency [address] [place] [address] Annabelle Lara DO Spasm of left trapezius muscle (Primary Dx) Discharge Disposition: Home or Self Care from Last 3 Months Medical History Medical History Date Comments Diabetes mellitus (CMS/HCC V24, CMS/HCC V28) #2 Hypertension Social History Tobacco Use Types Packs/Day Years Used Date Smoking Tobacco: Never Smokeless Tobacco: Never Tobacco Cessation:Counseling Given: Not Answered Sex and Gender Information Value Date Recorded Sex Assigned at Not on file Legal Sex Male 4:29 AM EST Gender Identity Not on file Sexual Orientation Not on file Obstetrics History Last Filed Vital Signs Vital Sign Reading Time Taken Comments Blood Pressure 164/67 11/17/2024 5:43 AM EDT Pulse 66 11/17/2024 5:43 AM EDT Temperature 36.6 C (97.9 F) 11/17/2024 5:43 AM EDT Respiratory Rate 18 11/17/2024 5:43 AM EDT Oxygen Saturation 97% 11/17/2024 5:43 AM EDT Inhaled Oxygen Concentration - - Weight 82.6 kg (182 lb) 11/17/2024 5:43 AM EDT Height 165.1 cm (5' 5 ) 11/17/2024 5:43 AM EDT Body Mass Index 30.29 11/17/2024 5:43 AM EDT Plan of Treatment Upcoming Encounters Date Type Department Care Team (Late st Contact Info) Description 01/16/2025 1:45 PM EDT Office Visit Orthopedic Surgery - [place] [address] [facility] [address] [place] [phone] Maximino Marinelli DPM [address] [facility] [address] [place] [address] Health Maintenance Due Date Last Done Comments Diabetes: Annual GFR (Glomerular Filtration Rate) 1948 Diabetes: Annual Foot Exam 1958 Diabetes: Annual Retina Eye Exam 1958 Zoster Vaccines (1 of 2) 1998 Pneumococcal Vaccine: 50+ Years (2 of 2 - PCV) 05/15/2014 05/15/2013 Cholesterol Screening (Lipid Panel) 04/10/2022 Hepatitis C Screening 04/10/2022 Medicare Annual Wellness Visit 04/10/2022 Social Influencers of Health Screening 04/10/2022 Hypertension/CHF/CAD Annual BMP Blood Test 04/20/2022 Diabetes: Annual Urine Albumin-Creatinine Ratio (uACR) 04/23/2022 Diabetes: Blood Sugar Contro l Test (HGBA1C) 04/23/2022 RSV Immunization Adult Patients (1 - 1-dose 75+ series) 07/16/2023 COVID-19 Vaccine (4 - 2023-2 5 season) 2024 05/24/2021, 07/20/2020, 06/22/2020 Depression Screening 05/08/2024 Influenza Vaccine (#1) 2025 05/06/2021 Falls Risk Assessment 11/17/2025 11/17/2024 DTaP,Tdap,and Td Vaccines (2 - Td or [...] to complete this topic RSV Immunization Patients Under 20 months Aged Out No longer eligible b ased on patient's age to complete this topic Varicella Vaccines Aged Out No longer eligible based on patient's [place] [id number] [facility] MEDICARE Member Subscriber Plan / Payer (Ef fective 2014-Present) Name:Benito Martin Relation to Subscriber:Self Name:Benito Martin Payer ID:[id number] Group ID:[id number] Type:Not on file Address: [place] [address] [address] [id number] Care Teams Pump Operator Byproducts Relationship Specialty Start Date End Date Raymond Machuca MD [address] [place] [address] [address] KIMBERLEE Sol PCP - General Internal Medicine 05/08/12
--- OUTSIDE RECORDS SUMMARY | 2024-12-10 09:40 | XMS_ITS | Clinical Summary ---
Author Organization [facility] Address [address] [place] [address] Care Team Providers Care Engineer Byproduct Name Role Phone Unavailable Primary Care Provider [...] 1966 Imm-DTaP/Tdap/Td (1 - Tdap) 07/16/1967 Imm-Pneumococcal 50+ (1 of 1 - PCV) 1998 Imm-Zoster, Recombinant (1 of 2) 1998 Falls Prevention 2013 Imm-RSV (adult) (1 - 1-dose 75+ series) 07/16/2023 Fhe-JCENZ-26 (1 - 2024- season) 2024 Alcohol and Drug Screen 05/08/2024 Depression Annual Screen 05/08/2024 Imm-Influenza (#1) 2025 Insurance [facility]
[2024-12-10 10:13] LABS: Hematocrit 46.4 % (42.0-52.0); Hemoglobin 16.0 g/dl (14.0-18.0); Imm Gran Abs Auto 0.02 X10*3/uL (0.00-0.03); Imm Gran Pct Auto 0.3 % (0.0-0.4); Lymphocytes Absolute Auto 1.5 X10*3/uL (1.2-4.9); Mean Corpuscular HGB Conc 34.5 g/dl (31.0-36.0); Mean Corpuscular Hemoglobin 29.9 pg (27.0-33.0); Mean Corpuscular Volume 86.7 fL (80.0-98.0); NRBC Abs Auto 0.000 X10*3/uL (0.0-0.012); NRBC Pct Auto 0.0 /100WBC (0.0-0.2); Platelet Count 175 X10*3/uL (160-400); Red Blood Count 5.35 X10*6/uL (4.60-5.80); White Blood Count 6.7 X10*3/uL (4.8-10.8)
[2024-12-10 10:38] LABS: Appearance Urine Clear; Glucose Urine UA 100 mg/dL (Negative); PH 7.5 (5.0-9.0); Specific Gravity - Urine 1.020 (1.005-1.025); UMIC TRIGGER UACC YES
[2024-12-10 10:52] LABS: Hemoglobin A1C 232.9253 umol/L; Total Hemoglobin (HGBA1C) 4190.5503 umol/L
[2024-12-10 10:57] LABS: Alanine Aminotransferase 24 U/L (0-40); Albumin Level 4.5 g/dL (3.5-5.0); Alkaline Phosphatase 80 U/L (39-117); Anion Gap 12 (12-20); Aspartate Amino Transferase 27 U/L (5-37); Blood Urea Nitrogen 18 mg/dL (9-16); Calcium 9.4 mg/dL (8.4-10.2); Carbon Dioxide 28 mmol/L (22-29); Chloride 104 mmol/L (96-108); Cholesterol 206 mg/dL (<200); Estimated Glomerular Filt Rate > 60; HDL Cholesterol 61 mg/dL (>40); Potassium 4.2 mmol/L (3.3-5.1); Sodium 140 mmol/L (135-145); Total Protein 7.6 g/dL (6.5-8.0); Triglycerides 102 mg/dL (<150)
[2024-12-10 11:24] LABS: Vitamin B12 589 pg/mL (200-900)
[2024-12-10 11:43] LABS: Microalbum/Creatinine Ratio Ur 580.4 ug/mg cr (<30)
[2024-12-10 12:13] LABS: Folate 9.1 ng/mL (> or = 4.0)
== END 2024-12-10 09:19 | disposition home or self-care (01) ==
LOC: HO.LAB 09:18
PROVIDERS: Visit Provider Internal Medicine
DX: E11.9 Type 2 diabetes mellitus without complications (principal); E53.8 Deficiency of other specified B group vitamins; E78.00 Pure hypercholesterolemia, unspecified; E55.9 Vitamin D deficiency, unspecified; D64.9 Anemia, unspecified
CPT/HCPCS: 36415; 80053; 80061; 81001; 82043; 82306; 82570; 82607; 82746; 83036; 84443; 85025

== ENCOUNTER 2025-03-20 07:34 | Outpatient (REF) | payer OTHER, SELFPAY ==
--- OUTSIDE RECORDS SUMMARY | 2024-03-04 08:00 | XMS_ITS ---
Author Organization [facility] Address [address] [place] [address] Care Team Providers Care Inletter Name Role Phone Sven NELSON, Raymond Primary Care Provider Unava Shelli Delgadillo Unavailable [phone] Encounters Encounter Location Date Provider Diagnosis [address] [address] 03/04/2024 Shelli Ralph Plan Of Treatment No Information Progress Notes * Benito THOMASDOB:1950 ( 74 yo M)Acc No.[id number]:03/04/2024 Progress Notes Patient: Benito ZACARIAS Provider: Marvin Ralph DPM :1950 A ge:73 Y S ex:Male Date:03/04/2024 Address:[address] [place], [place] [id number] Pcp:Raymond Machuca MD Subjective: * Chief Complaints: * * Medical History: Objective: * Vitals: Assessment: Plan: * Treatment: * Images: * The named appointment provid er may or may not be the originator of this progress note, and it is not deemed complete until electronically signed by the appointment provider. Sign off status: Pending * Provider: Marvin Ralph DPM Date: Generated for Rebecca cohen/Maycol/Lorieitting on: 05/20/2024 07:36 AM EST
--- OUTSIDE RECORDS SUMMARY | 2025-03-20 07:37 | XMS_ITS | Encounter Summary ---
Author Organization [facility] Address [address] [place] [address] Care Team Providers Care Registered Nurse Ambulatory Name Role Phone Unavailable Primary Care Provider Unavailabl e Encounter Details Date Type Department Care Team (Late st Contact Info) Description 11/23/2021 Dental Interim Note [facility] [address] [place] [address] Hanna Sepulveda Y [address] [place] [address] Social History Tobacco Use Types Packs/Day Years [...]
--- OUTSIDE RECORDS SUMMARY | 2025-03-20 07:37 | XMS_ITS | Clinical Summary ---
Author Organization [facility] Address [address] [place] [address] Care Team Providers Care Substance Abuse Prevention Coordinator Name Role Phone Unavailable Primary Care Provider [...] Orientation Not on file Plan of Treatment Not on file Insurance [facility]
--- OUTSIDE RECORDS SUMMARY | 2025-03-20 07:37 | XMS_ITS | Continuity of Care Document ---
Author Organization [facility] [address] [facility] [address] [place] [address] Phone [phone] Care Team Providers Care Dairy Chemist Name Role Phone Raymond Machuca Care Team Information Secondary English Teacher [phone] Problems Active Problems Provider Date Type 2 [...] SIG Qnty Indications Order ing Provider Date Iynrqunuj82ym Tablets Take 1 Tablet By Mouth Every Morning For 90 Days 90tabs Kevan Cunningham M.D. 03/08/2024 Onetouch VerioStrips use 1 strip via meter three times daily Dx: E11.9 300units E11.8 Kevan Cunningham M.D. 11/06/2023 Zuftovrod1tk Tablets 1 tablet by mouth twice daily 180tabs Kevan Cunningham M.D. 08/01/2023 Onetouch Verio Reflectw/Device Kit use to test glucose 1 time a day 1units Kevan Cunningham M.D. 08/01/2023 Fzznhotztu80xi Tablets Take 1 Tablet By Mouth Every Day 90tabs Kevan Cunningham M.D. 08/01/2023 Tizanidine HCL4mg Tablets Take 1 Tablet By Mouth Every 8 Hours as Needed For Muscle Spasticity Sven, Raymond Atorvastatin Ooynnwl99nn Tablets Take 1 Tablet By Mouth Every Day Sven, Raymond Pioglitazone ZDU99et Tablets Take 1 Tablet By Mouth Every Day Sven, Raymond Zcemgeqgfh47ap Capsules DR Take 1 Capsule By Mouth Daily as Needed For Acid Reflux Sven, Raymond Ubvdimhlh483wi Capsules Take 1 Capsule By Mouth Twice A Day For 30 Days Julio Olson PA Ebwynqob07fb Tablets Take 1 Tablet By Mouth Every [...]
--- OUTSIDE RECORDS SUMMARY | 2025-03-20 07:37 | XMS_ITS | Patient Health Record ---
Author Organization [facility] Address [address] [place] [address] Care Team Providers Care Street Commissioner Name Role Phone Sven NELSON, [place] Primary Care Provider UnaShelli Mendieta Unavailable [phone] Reason For Referral No Information Plan Of Treatment No Information Insurance Providers Payer Name Payer Address Payer Phone Subscriber Number Group Number Insured Name Patient Relationship to Insured Coverage Start Date Coverage End Date [facility] [employer] Claims [address] [place] [id number] Bneito Martin Self - patient is the insured
--- OUTSIDE RECORDS SUMMARY | 2025-03-20 07:37 | XMS_ITS | Clinical Summary ---
Author Organization [address] [place] [address] Address [address] [place] [address] Phone Care Team Providers Care Mill Crane Operator Name Role Phone Raymond Machuca MD Primary Care Provider Allergies No known active allergies Medications cyclobenzaprine (FLEXERIL) 10 mg tabletIndication s:Spasm of left trapezius muscle Take 1 tablet (10 mg total) by mouth 3 (three) times a day if needed for muscle spasms for up to 10 days. 15 tablet 11/17/2024 Active Encounters Date Type Department Care Team Description 01/16/2025 1:45 PM EDT Office Visit Orthopedic Surgery - [place] [address] [facility] [address] [place] [address] Maximino Marinelli, TERESO Type 2 diabetes mellitus with other diabetic kidney complication ([facility] V24, [facility] V28) (Primary Dx); Arthritis of both feet; Hammertoes of both feet; Dermatophytosis, nail from Last 3 Months Medical History Medical History Date Comments Diabetes mellitus ([facility] V24, [facility] V28) #2 Hypertension Social History Tobacco Use [...] Care Team (Late st Contact Info) Description 03/20/2025 1:30 PM EST Office Visit Orthopedic Surgery - [place] [address] [address] Maximino Marinelli, TERESO [address] [address] Health Maintenance Due Date Last Done Comments [...] Patients (1 - 1-dose 75+ series) 07/16/2023 Depression Screening 05/08/2024 COVID-19 Vaccine (4 - 2024-2 6 season) 2025 05/24/2021, 07/20/2020, 06/22/2020 Influenza Vaccine (#1) 2025 05/06/2021 Falls Risk [...] patient's age to complete this topic Insurance [facility] MEDICARE Member Subscriber Plan / Payer (Ef fective 2014-Present) Name:BENITO THOMAS Relation to Subscriber:Self Name:Benito [place] Payer ID:[id number] Group ID:[id number] Type:Not on file Address: [place] [address] [place] [phone] Care Teams Mill Crane Operator Relationship Specialty Start Date End Date Raymond Machuca MD [address] [place] [address] Dr [address] KIMBERLEE Sol PCP - General Internal Medicine 05/08/12
[2025-03-20 07:55] LABS: MANUAL DIFF FLAG NO
[2025-03-20 08:15] LABS: Hematocrit 49.0 % (42.0-52.0); Hemoglobin 15.9 g/dl (14.0-18.0); Imm Gran Abs Auto 0.02 X10*3/uL (0.00-0.03); Imm Gran Pct Auto 0.2 % (0.0-0.4); Lymphocytes Absolute Auto 2.2 X10*3/uL (1.2-4.9); Mean Corpuscular HGB Conc 32.4 g/dl (31.0-36.0); Mean Corpuscular Hemoglobin 29.6 pg (27.0-33.0); Mean Corpuscular Volume 91.1 fL (80.0-98.0); NRBC Abs Auto 0.000 X10*3/uL (0.0-0.012); NRBC Pct Auto 0.0 /100WBC (0.0-0.2); Platelet Count 189 X10*3/uL (160-400); Red Blood Count 5.38 X10*6/uL (4.60-5.80); White Blood Count 8.1 X10*3/uL (4.8-10.8)
[2025-03-20 08:33] LABS: Appearance Urine Clear; Glucose Urine UA >=1000 mg/dL (Negative); PH 6.5 (5.0-9.0); Specific Gravity - Urine >= 1.030 (1.005-1.025); UMIC TRIGGER UACC YES
[2025-03-20 09:22] LABS: Folate 10.4 ng/mL (> or = 4.0); Vitamin B12 511 pg/mL (200-900)
[2025-03-20 09:23] LABS: Microalbum/Creatinine Ratio Ur 428.9 ug/mg cr (<30)
[2025-03-20 12:16] LABS: Alanine Aminotransferase 37 U/L (0-40); Albumin Level 4.6 g/dL (3.5-5.0); Alkaline Phosphatase 74 U/L (39-117); Anion Gap 12 (12-20); Aspartate Amino Transferase 35 U/L (5-37); Blood Urea Nitrogen 13 mg/dL (9-16); Calcium 9.4 mg/dL (8.4-10.2); Carbon Dioxide 26 mmol/L (22-29); Chloride 106 mmol/L (96-108); Cholesterol 145 mg/dL (<200); Estimated Glomerular Filt Rate > 60; HDL Cholesterol 65 mg/dL (>40); Potassium 4.2 mmol/L (3.3-5.1); Sodium 140 mmol/L (135-145); Total Protein 7.4 g/dL (6.5-8.0); Triglycerides 70 mg/dL (<150)
== END 2025-03-20 07:35 | disposition home or self-care (01) ==
LOC: HO.LAB 07:34
PROVIDERS: PCP Internal Medicine; Visit Provider Internal Medicine
DX: E53.8 Deficiency of other specified B group vitamins (principal); E11.9 Type 2 diabetes mellitus without complications; D64.9 Anemia, unspecified; E78.00 Pure hypercholesterolemia, unspecified; E55.9 Vitamin D deficiency, unspecified; R30.0 Dysuria
CPT/HCPCS: 36415; 80053; 80061; 81001; 82043; 82306; 82570; 82607; 82746; 83036; 84443; 85025

== ENCOUNTER 2025-03-21 14:13 | Outpatient (AMB) | payer OTHER, SELFPAY ==
--- OUTSIDE RECORDS SUMMARY | 2024-03-04 08:00 | XMS_ITS ---
Author Organization [facility] Address [address] [place] [address] Care Team Providers Care Commercial Account Officer Name Role Phone Sven NELSON, Raymond Primary Care Provider Unava Shelli Delgadillo Unavailable [phone] Encounters Encounter Location Date Provider Diagnosis [address] [address] 03/04/2024 Shelli Ralph Plan Of Treatment No Information Progress Notes * Benito THOMASDOB:1950 ( 74 yo M)Acc No.[id number]:03/04/2024 Progress Notes Patient: Benito ZACARIAS Provider: Marvin Ralph DPM :1950 A ge:73 Y S ex:Male Date:03/04/2024 Address:[address] [place], [place] [id number] Pcp:Raymond Machuca MD Subjective: * Chief Complaints: [...] DPM Date: Generated for Rebecca cohen/Maycol/Lorieitting on: 05/21/2024 09:11 PM EST
--- OUTSIDE RECORDS SUMMARY | 2025-03-20 13:30 | XMS_ITS | Encounter Summary ---
Author Organization [facility] Address [address] [place] [address] Care Team Providers Care Mold Yard Supervisor Name Role Phone Raymond Machuca MD Primary Care Provider + [phone] Reason for Visit * Reason Comments DM Foot Care Type 2 diabetes kushal itus with other diabetic kidney complication ([facility] V24, [facility] V28)Arthritis of both feetHammertoes of both feetDermatophytosis, nail * Consultation (Routine) - Closed Specialty Diagnoses / Procedures Referred By Gerson varner Referred To Contact Podiatry / Orthopaedic Surgery Diagnoses Type 2 diabetes mellitus with other diabetic kidney complication ([facility] V24, [facility] V28) Shayla Cardenas PA [address] [place] [address], [address] [place] [address] Phone: tel: fax: Maximino Marinelli DPM [address] [address] Phone: tel: fax: Referral ID Status Reason Start Date Expiration Date V isits Requested Visits Authorized [id number] Closed Specialty Services Required 11/05/2024 11/05/2025 1 1 Encounter Details Date Type Department Care Team (Latest Contact Info) Description 03/20/2025 1:30 PM EST Office Visit Orthopedic Surgery - [place] [address] [phone] Maximino Marinelli DPM [address] [address] Type 2 diabetes mellitus with other diabetic kidney complication ([facility] V24, [facility] V28) (Primary Dx); Arthritis of both feet; Hammertoes of both feet; Dermatophytosis, nail Social History Tobacco Use Types Packs/Day Years Used Date Smoking Tobacco: Never Smokeless Tobacco: Never Sex and Gender Information Value Date Recorded Sex Assigned at Not on file Legal Sex Male 4:29 AM EST Gender Identity Not on file Sexual Orientation Not on file documented as of this encounter Progress Notes * Maximino Marinelli DPM - 03/20/2025 1:30 PM EST Referring MD: Shayla Cardenas PA Last PCP visit: 11/04/2024 IDENTIFIER: Mario is a 74 y.o. year old male who presents for consultation. CC: Pain in feet HPI: Patient returns for multiple forefoot deformities Patient states that they have been diabetic for the past few years and has some continued tingling numbness to the feet Patient denies any recent openings in the Patient relates his nails are thickened and causing pain and close toed shoes Patient is wearing good supportive shoes at this time. Patient reports mild calluses that are becoming bothersome. Patient with minimal other pedal complaints at this time. Patient's FBS this AM was 110 Recent A1C is %. 7.8 ROS: GENERAL: Pt denies nausea, fever, vomiting, chills, or shortness of breath. Pt in NAD. CARDIOLOGY: pt denies chest pain, palpitations LUNGS: pt denies shortness of breath MUSCULOSKELETAL: See HPI, otherwise no joint pain or swelling, back pain, or muscle pain. SKIN: see HPI, otherwise no lesions, rash or itching NEURO: No persistent headache, weakness or numbness The remainder of the review of systems is noncontributory PAST MEDICAL HISTORY: There is no problem list on file for this patient. SOCIAL HISTORY: Social History Tobacco Use Smoking status: Never Smokeless tobacco: Never Substance Use Topics Alcohol use: Not on file ACTIVE MEDICATIONS: No outpatient medications have been marked as taking for the 03/20/25 encounter (Office Visit) withMaximino Marinelli DPM. ALLERGIES: Patient has no known allergies. PHYSICAL EXAM: There were no vitals taken for this visit. PODIATRIC EXAMINATION: GENERAL: Patient appears well nourished, with NAD. VASCULAR: Dorsalis pedis pulses are 1/4 bilaterally and Posterior tibial pulses are 0/4 bilaterally. Capillary filling time within normal limits the digits. No pallor on elevation or rubor on dependency. Positive hair growth. No varicosities. Denies rest pain or claudication pain. NEUROLOGICAL: Sharp/dull sensation intact, protective sensation intact on [place]. Peripheral neuropathy of the feet bilaterally ORTHOPEDIC: Good muscle strength 5/5 of all flexors and extensors. Dorsi flexion of ankle ,10 degrees, plantar flexion WNL. No muscle atrophy. Arthritic changes of midfoot. Contractures digits 2 through 5 DERMATOLOGICAL:.No masses or skin lesions noted. Normal skin temperature, normal skin turgor. Nailsare thickened misshapened discolored x 10 with subungual debris BIOMECHANICS: STJ ROM wnl, MTJ ROM wnl, 1st MPJ ROM wnl. IMPRESSION: 1. Type 2 diabetes mellitus with other diabetic kidney complication ([facility] V24, [facility] V28) 2. Arthritis of both feet 3. Hammertoes of both feet 4. Dermatophytosis, nail PLAN: Pt was seen and examined, history reviewed. She was educated on importance of tight glucose control and her limit chance of ulceration infection to the feet Patient was encouraged to stick with supportive insoles in his shoes in order to limit breakdown midtarsal joint arthritic flares in the future Patient was reeducated on the importance of offloading pad such as hammertoe crutches in order to limit pressure at the distal toe Nail debridement performed to nails 1-5 bilateral as nails were described to be causing pain and difficulty for walking while in shoegear at their previous length. They were debrided in thickness andlength, with no incident. Clinical evidence of mycosis is documented which required active treatment. Patient expressed immediate relief. Patient is to RTC in 9 weeks Maximino Marinelli DPM documented in this encounter Plan of Treatment Upcoming Encounters Date Type Department Care Team (Late st Contact Info) Description 06/24/2025 1:30 PM EST Office Visit Orthopedic Surgery - [place] [address] [address] Maximino Marinelli DPM [address] [address] documented as of this encounter Visit Diagnoses Diagnosis Type 2 diabetes mellitus with other diabetic kidney complication ([facility] V24, [facility] V28)- Primary Arthritis of both feet Hammertoes of both feet Dermatophytosis, nail Dermatophytosis of nail documented in this encounter Care Teams Mold Yard Supervisor Relationship Specialty Start Date End Date Raymond Machuca MD [address] [place] [address] Dr [address] [place], [place] PCP - General Internal Medicine 05/08/12 documented as of this encounter
--- NOTE | 2025-03-21 14:16 | MHC.PC.OV ---
Vital Signs 03/21/25 14:17 Height 5 ft 5 in Weight 181 lb 8 oz BMI 30.2 BP 110/60 Blood Pressure Location Lt brachial Position Sitting Pulse 67 Pulse Source Pulse Oximeter Pulse Oximetry (%) 95 Oxygen Delivery Method Room Air Intake Visit Reasons: DM, microalbuminuria, hyperlipidemia, HTN, resched Associate Director Of Biostatistics Required: No Accompanied by: Self / Same As Patient Allergies No Known Allergies Allergy (Verified 03/21/25 14:41) Medication List - Last Reconciled 03/21/25 by Raymond Machuca MD acetaminophen (Tylenol) 650 mg (2 x 325 mg) PO Q6H PRN acetaminophen ER (Tylenol 8 Hour) 650 mg PO Q8H PRN [Adult pull ups (LARGE) As directed] amlodipine 10 mg PO DAILY 90 days atenolol 50 mg PO DAILY 90 days atorvastatin 80 mg PO DAILY celecoxib 200 mg PO BID cholecalciferol (vitamin D3) 50 mcg PO DAILY 90 days [diabetic shoe inserts As directed] [DIABETIC SHOES (1 pair) - size TBD based on patient As directed] diabetic supplies, miscellan. Diabetic shoes (1 pair) empagliflozin (Jardiance) 25 mg PO QAM 90 days [Freestyle joshua strips As directed] gabapentin 300 mg PO BID glipizide 5 mg PO BID [Grab stick As directed] [Grabber/Roll Inspector As directed] hydralazine 25 mg PO BID hydrochlorothiazide 25 mg PO DAILY ibuprofen 600 mg PO Q6H PRN lidocaine 5% 1 patch topical DAILY lidocaine 4% (Aspercreme (lidocaine)) 1 patch topical DAILY PRN losartan 100 mg PO DAILY meclizine 25 mg PO TID PRN metformin 1,000 mg PO BID omeprazole 20 mg PO DAILY PRN pioglitazone 30 mg PO DAILY 90 days [Reach grabber As directed] Salonpas (lidocaine) 4% (lidocaine) 1 patch topical BID PRN NS semaglutide (Ozempic) 0.25 mg (0.368 mL) subcut QWEEK 4 weeks [Sock aide As directed] tizanidine 4 mg PO Q8H PRN tizanidine 4 mg PO TID PRN trazodone 25 mg (1/2 x 50 mg) PO BEDTIME PRN Tobacco use date assessed: 03/21/25 Fall risk assessment: No Falls in past year Last assessed Fall Risk: 03/21/25 Dental Screening Dental Screen Date: 03/21/25 Did you have a dental visit in the last 12 months?: Yes Did you have a dental problem in the last 6 months where you did not have access to dental care?: No Was dental information given to patient?: Patient has dentist HPI DM, microalbuminuria, hyperlipidemia, HTN, resched HPI Details Patient comes in today for his follow-up visit States that he feels okay He denies any headaches or dizziness Denies any chest pains, no SOB No nausea/vomiting, no abdominal pain No change in bowel habits noted Adds that he has been having problems sleeping through the night lately - he used to take some Rx for sleep but has not had them in almost 2 years now He had his follow up labs done yesterday - to discuss his results [facility] Medical History GERD without esophagitis Dermatitis Obesity (BMI 30-39.9) Insomnia Vitamin D deficiency Lumbar degenerative disc disease Complex regional pain syndrome type 2 of left upper extremity Primary osteoarthritis of right shoulder Benign essential hypertension Pure hypercholesterolemia Proteinuria, unspecified Type 2 diabetes mellitus with other diabetic kidney complication Hypercholesteremia Hypertension Diabetes type 2, controlled Surgical History History of colonoscopy Status post right rotator cuff repair Family History Mother CVD (cardiovascular disease) Father No problems noted. Social History Housing: Apartment Alcohol intake: current Alcohol intake frequency: a few times a month Alcohol type: beer Patient Tobacco Use Status: Former Tobacco user Tobacco use type: Cigarette e-Cigarette/Vaping Use: Never Used Second Hand Smoke Exposure: Yes service: No Current occupational status: retired Cognitive needs: Yes (cane) Hearing needs: No (Pt has an old pair of hearing aid. ) Vision needs: Yes Questionnaire PHQ-9 Over the last 2 weeks, how often have you been bothered by any of the following problems? 1. Little interest or pleasure in doing things: not at all 2. Feeling down, depressed, or hopeless: not at all 3. Trouble falling or staying asleep, or sleeping too much: nearly every day 4. Feeling tired or having little energy: nearly every day 5. Poor appetite or overeating: not at all 6. Feeling bad about yourself - or that you are a failure or have let yourself or your family down: not at all 7. Trouble concentrating on things, such as reading the newspaper or watching television: not at all 8. Moving or speaking so slowly that other people could have noticed. Or the opposite - being so fidgety or restless that you have been moving around a lot more than usual: not at all 9. Thoughts that you would be better off or of hurting yourself in some way: not at all Total score: 6 Depression Screening Interpretation: Positive Depression Screening Follow-up: Follow-up Visit Requested Depression Screening Done: Yes 35577 - PHQ-9 Billing: Yes Source: Developed by Drs. Carmine Nguyen, Lee Ann Roblero, Jose An and colleagues, with an educational scout from [email or web address]. Thrive Questionnaire Date Thrive assessed: 03/21/25 I am a: Patient What is your living situation today?: I have a steady place to live Within the past 12 months, did the food you bought not last and you didn't have the money to get more?: Never true Within the past 12 months, did you worry whether your food would run out before you got money to buy more?: Never true Do you have trouble paying for medicines?: No Do you have trouble getting transportation to medical appointments?: No Do you have trouble paying your heating and electricity bill?: No Do you have trouble taking care of your child, family member or friend?: No Do you have trouble with day-to-day activities such as bathing, preparing meals, shopping, managing finances, etc.?: No Are you currently unemployed and looking for a job?: No Are you interested in more education?: No Please select the resources that you would like help with: None Currently or been in a relationship where the following occur: No concerns reported THRIVE Score: 0 AUDIT C Alcohol Use Questionnaire (AUDIT-C) 1. How often do you have a drink containing alcohol?: Never 3. How often do you have six or more drinks on one occasion?: Never Total Score: 0 Score Reviewed/Action Taken: Yes JACQUI-7 AMB Questionnaire JACQUI-7 Date JACQUI - 7 assessed: 03/21/25 Feeling nervous, anxious, or on edge: 0 = Not at all Not being able to stop or control worryin = Not at all Worrying too much about different things: 0 = Not at all Trouble relaxin = Not at all Being so restless that it is hard to sit still: 0 = Not at all Becoming easily annoyed or irritable: 0 = Not at all Feeling afraid as if something awful might happen: 0 = Not at all Total JACQUI-7 score (0-4 normal; 5-9 mild; 10-14 moderate; 15-21 severe): 0 Source: Developed by Drs. Carmine Nguyen, Lee Ann Roblero, Joes An and colleagues, with an educational scout from [email or web address]. Review of Systems Const Denies chills, Denies fatigue, Denies fever(s) and Denies headache(s) ENT Denies dysphagia, Denies dizziness, Denies otalgia, Denies headache(s), Denies neck pain, Denies odynophagia and Denies sore throat Card Denies chest pain, Denies palpitations and Denies dyspnea Resp Denies chest congestion, Denies cough and Denies dyspnea GI Denies abdominal pain, Denies constipation, Denies dysphagia, Denies heartburn, Denies diarrhea, Denies nausea, Denies odynophagia and Denies vomiting Denies hematuria, Denies dysuria, Reports nocturia and Reports urinary frequency Musc Reports back pain (over the lower back - chronic; (+) left-sided low back pain lately), Reports arthralgias (left shoulder - slightly better since cortisone injection 2 days ago) and Denies neck pain Skin/Breast Denies rash Neuro Denies dizziness and Denies headache(s) Endo Denies fatigue, Reports polydipsia, Reports polyuria and Denies palpitations Physical exam (Primary Care) Vital Signs: Last Vital Signs Pulse 67 03/21/25 14:17 BP 110/60 03/21/25 14:17 Pulse Ox 95 03/21/25 14:17 Oxygen Delivery Method Room Air 03/21/25 14:17 BMI result Body Mass Index 30.2 Tobacco/Smoking Status: Tobacco use Status Tobacco use date assessed 03/21/25 03/21/25 14:21 Patient Tobacco Use Status Former Tobacco user 03/21/25 14:21 Tobacco use type Cigarette 03/21/25 14:21 e-Cigarette/Vaping Use Never Used 03/21/25 14:21 PHQ-9: PHQ-9 Score PHQ-9: Total score 6 03/21/25 14:21 Depression Screening Interpretation: Positive Depression Screening Follow-up: Follow-up Visit Requested Thrive Assessment: Date of Thrive Assessment Date Thrive assessed 03/21/25 03/21/25 14:21 Currently or been in a relationship where the following occur: No concerns reported Const General: no acute distress and alert HENMT Ears: TM's normal bilaterally and EAC's normal Throat: Yes posterior oropharynx normal and Yes tonsils normal (no TP congestion noted) Neck Neck: Yes supple and No lymphadenopathy Thyroid: Thyroid normal Resp Auscultation: clear to auscultation bilaterally, no rales and no wheezes Cardio Rate: regular rate Rhythm: regular rhythm Heart sounds: no murmurs GI Palpation (GI): Soft to palpation and nontender Auscultation: normal bowel sounds General: Yes no CVA tenderness Back/Spine/Pelvis Back: no CVA tenderness Thoracic/Lumbar Spine: lumbar spinal tenderness Skin Rashes: no rashes Extrem General: Yes no clubbing, cyanosis or edema Left upper extremity: shoulder/upper arm Details: tenderness Location: of the A-C joint; no swelling Results Reviewed Results Reviewed: Laboratory Tests 03/20/25 03/20/25 07:40 07:53 WBC 8.1 Hgb 15.9 Hct 49.0 Plt Count 189 Sodium 140 Potassium 4.2 Creatinine 1.01 Estimated GFR > 60 Fasting Glucose 134 H Hemoglobin A1c % 7.8 H Calcium 9.4 AST 35 ALT 37 Triglycerides 70 Cholesterol 145 LDL Cholesterol, Calc 66 HDL Cholesterol 65 Vitamin B12 511 25-OH Vitamin D Total 34.3 TSH 0.91 Ur Specific [place] >= 1.030 H Urine Protein 100 (2+) H Urine Glucose (UA) >=1000 H Urine Blood Negative Urine Nitrite Negative Ur Leukocyte Esterase Negative Microalb/Creat Ratio 428.9 H Coding Level of Care Code Est Pt Level 4 (03496) Diagnoses Type 2 diabetes mellitus with other diabetic kidney complication E11.29 Proteinuria, unspecified type R80.9 Proteinuria type: unspecified Benign essential hypertension I10 Pure hypercholesterolemia E78.00 Vitamin D deficiency E55.9 GERD without esophagitis K21.9 Lumbar degenerative disc disease M51.36 Primary osteoarthritis of right shoulder M19.011 Calcific tendinitis of left shoulder M75.32 Primary insomnia F51.01 Insomnia type: primary Obesity (BMI 30-39.9) E66.9 Additional Codes PHQ-9 - 45484 - PHQ-9 Billing: Yes ([id number]) Assessment & Plan Assessment & Plan (1) Type 2 diabetes mellitus with other diabetic kidney complication: Code(s): E11.29 - Type 2 diabetes mellitus with other diabetic kidney complication Category: Medical Plan: His HgbA1c was at 7.8% on his labs done yesterday (was previously at 8.3% a few months ago) - goal is < 7.0% Reinforced diabetic diet Continue Metformin 1000 mg BID, Jardiance 25 mg Q AM, Pioglitazone 30 mg QD, Glipizide 5 mg BID and Ozempic 0.25 mg SQ once a week Follow up with [facility] as scheduled (2) Proteinuria, unspecified: Code(s): R80.9 - Proteinuria, unspecified Category: Medical Qualifiers: Proteinuria type: unspecified Qualified Code(s): R80.9 - Proteinuria, unspecified Plan: Will continue to monitor his renal function regularly Patient is reminded again that his proteinuria will continue to progress and get worse if his diabetes is not adequately controlled (3) Benign essential hypertension: Code(s): I10 - Essential (primary) hypertension Category: Medical Plan: Reinforced low-sodium diet -? goal is systolic BP of at least 130 to 140 mm or less Continue Losartan 100 mg QD, Hydrochlorothiazide 25 mg QD, Amlodipine 10 mg QD, Atenolol 50 mg QD and Hydralazine 25 mg BID (4) Pure hypercholesterolemia: Code(s): E78.00 - Pure hypercholesterolemia, unspecified Category: Medical Plan: Results of his labs done yesterday reviewed and discussed with patient Reinforced low cholesterol diet Continue Atorvastatin 80 mg QD Will recheck his labs and fasting lipids in 3 months for follow up (5) Vitamin D deficiency: Code(s): E55.9 - Vitamin D deficiency, unspecified Category: Medical Plan: Continue Vitamin D3 2000 units QD (6) GERD without esophagitis: Code(s): K21.9 - Gastro-esophageal reflux disease without esophagitis Category: Medical Plan: Dietary restrictions reinforced Continue Omeprazole 20 mg QD (7) Lumbar degenerative disc disease: Code(s): M51.36 - Other intervertebral disc degeneration, lumbar region Category: Medical Plan: Reinforced activity and weight lifting restrictions Abdominal / pelvic CT done a few months ago revealed (+) degenerative disc disease, with mild canal stenosis and moderate bilateral neural foraminal stenosis at L4-L5, with no acute fracture or subluxation Continue Percocet 5-325 mg 1 tablet every 6-8 hours as needed and Gabapentin 300 mg BID (8) Primary osteoarthritis of right shoulder: Code(s): M19.011 - Primary osteoarthritis, right shoulder Category: Medical Plan: MRI of the right shoulder done last year showed (+)? tendinosis, large subacromial spur, OA changes as well as a posterior labral tear in the shoulder Patient underwent right rotator cuff repair with some improvement of his symptoms Follow-up with Orthopedics as scheduled (9) Calcific tendinitis of left shoulder: Code(s): M75.32 - Calcific tendinitis of left shoulder Category: Medical Plan: X-rays of the left shoulder done back in April 2023 revealed (+) calcific tendinitis of the shoulder He received cortisone injection into his left shoulder a few months ago, with (+) improvement of his shoulder pain since Follow up with orthopedics as scheduled (10) Insomnia: Code(s): G47.00 - Insomnia, unspecified Category: Medical Qualifiers: Insomnia type: primary Qualified Code(s): F51.01 - Primary insomnia Plan: Sleep hygiene reinforced He used to take Trazodone 25 mg once a day as needed but has not had it refilled in almost 2 years now - will start him back on his previous Rx (refill sent) (11) Obesity (BMI 30-39.9): Code(s): E66.9 - Obesity, unspecified Category: Medical Plan: Reinforced diet/exercise as tolerated/lose weight Plan Follow-up in 3 months Orders: Orders Hemoglobin A1c 3 Months E11.9 - Type 2 diabetes mellitus without complications Comprehensive [place]. Panel Fast 3 Months E78.00 - Pure hypercholesterolemia, unspecified Lipid Panel 3 Months E78.00 - Pure hypercholesterolemia, unspecified UA CC w/rflx Micro + Cult 3 Months R30.0 - Dysuria Complete Blood Count Auto Diff 3 Months D64.9 - Anemia, unspecified Microalbumin, Random (w Creat) 3 Months E11.9 - Type 2 diabetes mellitus without complications TSH reflex Free T4 3 Months E78.00 - Pure hypercholesterolemia, unspecified Medications: Refilled trazodone 25 mg (1/2 x 50 mg) PO BEDTIME PRN 45 tabs 1RF for insomnia
[2025-03-21 14:17] VITALS: BP 110/60; PULSE 67; O2SAT 95; BMI 30.2
--- OUTSIDE RECORDS SUMMARY | 2025-03-21 21:10 | XMS_ITS | Clinical Summary ---
Author Organization [facility] Address [address] [place] [address] Care Team Providers Care Nicu Rn Name Role Phone Unavailable Primary Care Provider [...] Plan of Treatment Not on file Insurance [facility]
--- OUTSIDE RECORDS SUMMARY | 2025-03-21 21:10 | XMS_ITS | Encounter Summary ---
Author Organization [facility] Address [address] [place] [address] Care Team Providers Care Cake Former Name Role Phone Unavailable Primary Care Provider Unavailabl e Encounter Details Date Type Department Care Team (Late st Contact Info) Description 11/23/2021 Dental Interim Note [facility] [address] [place] [address] Hanna Sepulveda Y [address] [place] [address] Social History Tobacco Use Types Packs/Day Years [...]
--- OUTSIDE RECORDS SUMMARY | 2025-03-21 21:11 | XMS_ITS | Continuity of Care Document ---
Author Organization [facility] [address] [facility] [address] [place] [address] Phone [phone] Care Team Providers Care Typesetting Supervisor Name Role Phone Raymond Machuca Care Team Information Spragger [phone] Problems Active Problems Provider Date Type 2 [...] SIG Qnty Indications Order ing Provider Date [id number] Tablets Take 1 Tablet By Mouth Every Morning For 90 Days 90tabs Kevan Cunningham M.D. 03/08/2024 Onetouch VerioStrips use 1 strip via meter three times daily Dx: E11.9 300units E11.8 Kevan Cunningham M.D. 11/06/2023 Nqlnrxdek2lz Tablets 1 tablet by mouth twice daily 180tabs Kevan Cunningham M.D. 08/01/2023 Onetouch Verio Reflectw/Device Kit use to test glucose 1 time a day 1units Kevan Cunningham M.D. 08/01/2023 Ygzjefuuqg14wi Tablets Take 1 Tablet By Mouth Every Day 90tabs Kevan Cunningham M.D. 08/01/2023 Tizanidine HCL4mg Tablets Take 1 Tablet By Mouth Every 8 Hours as Needed For Muscle Spasticity Sven, Raymond Atorvastatin Mulicqf74qp Tablets Take 1 Tablet By Mouth Every Day Sven, Raymond Pioglitazone IHT04cs Tablets Take 1 Tablet By Mouth Every Day Sven, Raymond Aijiojeerg57tv Capsules DR Take 1 Capsule By Mouth Daily as Needed For Acid Reflux Sven, Raymond Vloktjexy351df Capsules Take 1 Capsule By Mouth Twice A Day For 30 Days Julio Olson PA Efpwdzwi91pc Tablets Take 1 Tablet By Mouth Every [...]
--- OUTSIDE RECORDS SUMMARY | 2025-03-21 21:11 | XMS_ITS | Patient Health Record ---
Author Organization [facility] Address [address] [place] [address] Care Team Providers Care Truck Service Technician Name Role Phone Sven NELSON, [place] Primary Care Provider UnaShelli Mendieta Unavailable [phone] Reason For Referral No Information Plan Of Treatment No Information Insurance Providers Payer Name Payer Address Payer Phone Subscriber Number Group Number Insured Name Patient Relationship to Insured Coverage Start Date Coverage End Date [facility] [employer] Claims [address] [place] [id number] Benito Martin Self - patient is the insured
--- OUTSIDE RECORDS SUMMARY | 2025-03-21 21:11 | XMS_ITS | Clinical Summary ---
Author Organization [facility] Address [address] [place] [address] Phone Care Team Providers Care E Commerce Analyst Name Role Phone Raymond Machuca MD Primary Care Provider Allergies No known active allergies Medications cyclobenzaprine (FLEXERIL) 10 mg tabletIndication s:Spasm of left trapezius muscle Take 1 tablet (10 mg total) by mouth 3 (three) times a day if needed for muscle spasms for up to 10 days. 15 tablet 11/17/2024 Active Encounters Date Type Department Care Team Description 03/20/2025 1:30 PM EST Office Visit [facility] [address] [phone] Maximino Marinelli DPM Type 2 diabetes mellitus with other diabetic kidney complication ([facility] V24, [facility] V28) (Primary Dx); Arthritis of both feet; Hammertoes of both feet; Dermatophytosis, nail 01/16/2025 1:45 PM EDT Office Visit [facility] [address] [phone] Maximino Marinelli DPM Type 2 diabetes mellitus with other diabetic kidney complication ([facility] V24, [facility] V28) (Primary Dx); Arthritis of both feet; Hammertoes of both feet; Dermatophytosis, nail from Last 3 Months Medical History Medical History Date Comments Diabetes mellitus ([facility] V24, [facility] V28) #2 Hypertension Social History Tobacco Use [...] PM EST Office Visit Orthopedic Surgery - [place] [address] [address] [facility] [address] [place] [phone] Maximino Marinelli, TERESO [address] [address] Health Maintenance Due Date Last Done Comments [...] series) 07/16/2023 Depression Screening 05/08/2024 COVID-19 Vaccine (2024-2 6 season) 2025 05/24/2021, 07/20/2020, 06/22/2020 Influenza [...] patient's age to complete this topic Insurance [facility] Member Subscriber Plan / Payer (Ef fective 2014-Present) Name:BENITO THOMAS Relation to Subscriber:Self Name:Benito Thomas Payer ID:[id number] Group ID:[id number] Type:Not on file Address: [address] [facility] [place] [id number] Care Teams E Commerce Analyst Relationship Specialty Start Date End Date Raymond Machuca MD [address] [place] [address] [address] [place], [place] PCP - General Internal Medicine 1/1/13
== END 2025-03-21 14:59 | disposition home or self-care (01) ==
LOC: HO.HMCH 14:14
PROVIDERS: PCP Internal Medicine; Visit Provider Internal Medicine
DX: E11.29 Type 2 diabetes mellitus with other diabetic kidney complication (principal); R80.9 Proteinuria, unspecified; I10 Essential (primary) hypertension; E78.00 Pure hypercholesterolemia, unspecified; E55.9 Vitamin D deficiency, unspecified; K21.9 Gastro-esophageal reflux disease without esophagitis; M51.369 Other intervertebral disc degeneration, lumbar region without mention of lumbar back pain or lower extremity pain; M19.011 Primary osteoarthritis, right shoulder; M75.32 Calcific tendinitis of left shoulder; F51.01 Primary insomnia; E66.9 Obesity, unspecified

== ENCOUNTER → 2025-03-21 14:13 | Outpatient (BNVA) | payer OTHER, SELFPAY | PROVIDERS: PCP Internal Medicine; Visit Provider Internal Medicine | DX: I10 Essential (primary) hypertension (principal); E78.5 Hyperlipidemia, unspecified; E11.29 Type 2 diabetes mellitus with other diabetic kidney complication; R80.9 Proteinuria, unspecified; E78.00 Pure hypercholesterolemia, unspecified; E55.9 Vitamin D deficiency, unspecified; K21.9 Gastro-esophageal reflux disease without esophagitis; M51.369 Other intervertebral disc degeneration, lumbar region without mention of lumbar back pain or lower extremity pain; M19.011 Primary osteoarthritis, right shoulder; M75.32 Calcific tendinitis of left shoulder; F51.01 Primary insomnia; E66.9 Obesity, unspecified; Z68.30 Body mass index [BMI] 30.0-30.9, adult | CPT/HCPCS: 96127; 99212 ==